=== PATIENT | female | born 1970 | race Two or more races ===

== ENCOUNTER 2024-08-11 21:31 | Emergency (ER) | payer OTHER, SELFPAY ==
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
[2024-08-11 21:34] VITALS: BP 139/86; PULSE 107; RESP 16; TEMP 36.7; O2SAT 97
--- OUTSIDE RECORDS SUMMARY | 2024-08-11 23:52 | XMS_ITS | Encounter Summary ---
Author Organization [address] [address] Care Team Providers Care Farm Operations Technical Director Name Role Phone Lee Stallings MD Primary Care Provider [phone] Pcp, No Primary Care Provider Unavailabl e Encounter Details Date Type Department Care Team (Late st Contact Info) Description 10/12/2017 Scanned Document [address] [place] [phone] Provider, Generic Social History Tobacco Use Types Packs/Day Years Used Date Smoking Tobacco: Never Assessed Sex and Gender Information Value Date Recorded Sex Assigned at Not on file Gender Identity Not on file Sexual Orientation Not on file documented as of this encounter Plan of Treatment Not on file documented as of this encounter Procedures Procedure Name Priority Date/Time Associated Diagnosis Comments LAB RESULT 10/12/2017 documented in this encounter Results * LAB RESULT (10/12/2017) Narrative 10/12/2017 Ordered by an unspecified provider. Generic Provider HX AMB PROCEDURES documented in this encounter Visit Diagnoses Not on filedocumented in this encounter Care Teams Farm Operations Technical Director Relationship Specialty Start Date End Date Lee Stallings MD PCP - General Internal Medicine 11/27/17 01/17/19 Pcp, No PCP - General General Medicine 01/18/19 documented as of this encounter
--- OUTSIDE RECORDS SUMMARY | 2024-08-11 23:52 | XMS_ITS | Clinical Summary ---
Author Organization [facility] it Address [address] [place] [address] Care Team Providers Care Gasket Winder Name Role Phone RajendraLuda MARGO Primary Care Provider [phone] Immunizations Name Administration Dates Next Due Pfizer (ages 12 & older) MAGED S-CoV-2 COVID-19, mRNA, LNP-S, say-sucrose, preservative free 11/28/2021 Pfizer SARS-CoV-2 COVID-19, mRNA, LNP-S, preservative free 06/03/2021 Surgical History Surgery Date Site/Laterality Comments CHOLECYSTECTOMY PROCEDURE:CHOLECYSTECTOMY Medical History Medical History Date Comments Hypertension DX:Hypertension Migraines DX:Migraines Environmental allergies DX:Envir onmental allergies Family History Medical History Relation Name Comments Breast cancer Neg Hx Social History Tobacco Use Types Packs/Day Years Used Date Smoking Tobacco: Every Day Cigarettes Smokeless Tobacco: Never Alcohol Use Standard Drinks/Week Comments Yes 0 (1 standard drink = 0.6 oz pur e alcohol) Comments Unknown Sex and Gender Information Value Date Recorded Sex Assigned at Not on file Legal Sex Female 2:16 PM EST Gender Identity Not on file Sexual Orientation Not on file Obstetrics History Plan of Treatment Health Maintenance Due Date Last Done Comments Hepatitis B Vaccines (1 of 3 - 19+ 3-dose series) 1987 Cervical Cancer Screening: Pap Smear 1989 Zoster Vaccines (1 of 2) 2018 Pneumococcal Vaccine: 50+ Years (2 of 2 - PCV) 12/12/2018 12/12/2017 Pneumococcal Vaccine: Pediatrics (0 to 5 Years) and At-Risk Patients (6 to 64 Years) (2 of 2 - PCV) 12/12/2018 12/12/2017 Colorectal Cancer Screening: Colonoscopy 05/18/2022 Depression Screening 05/18/2022 HIV Screening 05/18/2022 Hepatitis C Screening 05/18/2022 Social Influencers of Health Screening 05/18/2022 COVID-19 Vaccine ( season) 2024 11/28/2021, 06/03/2021, 10/15/2020, Additional history exists Influenza Vaccine (#1) 2024 Breast Cancer Screening 08/11/2024 08/11/2022 DTaP,Tdap,and Td Vaccines (2 - Td or Tdap) 12/13/2027 12/12/2017 HIB Vaccines Aged Out No longer eligi ble based on patient's age to complete this topic HPV Vaccines Aged Out No longer eligi ble based on patient's age to complete this topic Hepatitis A Vaccines Aged Out No long er eligible based on patient's age to complete this topic IPV Vaccines Aged Out No longer eligi ble based on patient's age to complete this topic MMR Vaccines Aged Out No longer eligi ble based on patient's age to complete this topic Meningococcal ACWY Vaccine Aged Out N o longer eligible based on patient's age to complete this topic Meningococcal B Vacine Aged Out No lo nger eligible based on patient's age to complete this topic RSV Immunization Patients Under 20 months Aged Out No longer eligible based on patient's age to complete this topic Varicella Vaccines Aged Out No longer eligible based on patient's age to complete this topic Procedures Procedure Name Priority Date/Time Associated Diagnosis Comments MAMMOGRAM SCREENING BILATERAL 3D PATI WITH CAD Routine 08/11/2022 3:59 PM EST Encounter for screening mammogram for malignant neoplasm of breast from Last 3 Months or Most Recently Relevant to Health Maintenance Results * MAMMOGRAM SCREENING BILATERAL 3D PATI WITH CAD (08/11/2022 3:59 PM EST) Anatomical Region Laterality Modality Mammography 08/05/2022 10:4 9 AM EST Narrative 08/16/2022 10:59 AM EST This is a summary report. The complete report is available in the patient's medical record. If you cannot access the medical record, please contact the sending organization for a detailed fax or copy. EXAM PERFORMED: ??MAMMOGRAM SCREENING BILATERAL 3D PATI WITH CAD EXAM HISTORY: Screening Exam. No palpable abnormality. COMPARISON: 2017 TECHNIQUE: Bilateral full field digital mammography with synthesized (2D) the and Tomosynthesis (3-D) was performed using standard CC and MLO projections. Mammogram was interpreted in correlation with CAD and Tomosynthesis. BREAST DENSITY: There are scattered fibroglandular densities (approximately 25- 50% glandular, B). FINDINGS: No suspicious masses, grouped microcalcifications, or architectural distortion are identified. Typically benign asymmetries. No axillary lymphadenopathy. IMPRESSION: 1. No mammographic evidence of malignancy 2. Scattered fibroglandular densities BI-RADS Category 2: Benign 3342F RECOMMENDATION: Routine mammography screening. The results of this examination have been communicated to the patient through a lay letter in accordance with the Mammography Quality Standards Act. Report reviewed and signed by : Dr. Atilio Nicole MD on 08/16/2022 10:59 AM. Workstation Name - [id number] Procedure Note Atilio Nicole MD - 07/24/2023 This is a summary report. The complete report is available in thepatient's medical record. If you cannot access the medical record, pleasecontact the sending organization for a detailed fax or copy. EXAM PERFORMED: MAMMOGRAM SCREENING BILATERAL 3D PATI WITH CAD EXAM HISTORY: Screening Exam. No palpable abnormality. COMPARISON: 2017 TECHNIQUE: Bilateral full field digital mammography with synthesized (2D)the and Tomosynthesis (3-D) was performed using standard CC and MLOprojections. Mammogram was interpreted in correlation with CAD andTomosynthesis. BREAST DENSITY: There are scattered fibroglandular densities(approximately 25- 50% glandular, B). FINDINGS: No suspicious masses, grouped microcalcifications, orarchitectural distortion are identified. Typically benign asymmetries. Noaxillary lymphadenopathy. IMPRESSION: 1. No mammographic evidence of malignancy 2. Scattered fibroglandular densities BI-RADS Category 2: Benign 3342F RECOMMENDATION: Routine mammography screening. The results of this examination have been communicated to the patientthrough a lay letter in accordance with the Mammography Quality StandardsAct. Report reviewed and signed by : Dr. Atilio Nicole MD on 08/16/2022 10:59AM. Workstation Name - [id number] us Luda Drew NP IMG BI PROCEDURES Final Result from Last 3 Months or Most Recently Relevant to Health Maintenance Care Teams Gasket Winder Relationship Specialty Start Date End Date Luda Drew NP [address] [place] [address] PCP - General Family Medicine 09/24/20
--- OUTSIDE RECORDS SUMMARY | 2024-08-11 23:52 | XMS_ITS | Clinical Summary ---
Author Organization [facility] Address [address] [place] [address] Care Team Providers Care Eddy Current Inspector Name Role Phone Viktoriya Carrasco MD Primary Care Provider [phone] Allergies Active Allergy Reactions Criticality Noted Date Comments Ibuprofen 12/22/2020 Reactions: Hives Active Problems Problem Noted Date Diagnosed Date Facial pain 12/23/2020 Vertigo 12/23/2020 Social History Tobacco Use Types Packs/Day Years Used Date Smoking Tobacco: Never Assessed Comments:Smoking Status:Form er tobacco use Comments Unknown Sex and Gender Information Value Date Recorded Sex Assigned at Not on file Legal Sex Female 12:19 PM EDT Gender Identity Not on file Sexual Orientation Not on file Last Filed Vital Signs Vital Sign Reading Time Taken Comments Blood Pressure 115/80 12/22/2020 3:30 PM EDT Sit ting Sitting Pulse 84 12/22/2020 3:30 PM EDT Temperature - - Respiratory Rate - - Oxygen Saturation - - Inhaled Oxygen Concentration - - Weight - - Height - - Body Mass Index - - Plan of Treatment Health Maintenance Due Date Last Done Comments Hepatitis C Screening 1968 Pap Smear 1984 DTaP/Tdap/Td (1 - Tdap) 1986 Hep B (1 of 3 - 19+ 3-dose series) 1987 Mammogram/Breast Imaging 2008 Colon Cancer Screening 2013 Pneumococcal 50+ years (1 of 1 - PCV) 2018 Zoster (Shingrix) (1 of 2) 2018 COVID-19 Vaccine ( - 2023-2 5 season) 2024 Influenza (#1) 2024 HPV Vaccine Aged Out No longer eligi ble based on patient's age to complete this topic Hep A Aged Out No longer eligi ble based on patient's age to complete this topic Hib Aged Out No longer eligi ble based on patient's age to complete this topic Meningococcal ACWY Aged Out No longer eligible based on patient's age to complete this topic Care Teams Eddy Current Inspector Relationship Specialty Start Date End Date Viktoriya Carrasco MD [address] [place] [address] PCP - General 01/23/23
--- OUTSIDE RECORDS SUMMARY | 2024-08-11 23:52 | XMS_ITS | Encounter Summary ---
Author Organization [address] [address] Care Team Providers Care Bottom Cager Name Role Phone Lee Stallings MD Primary Care Provider [phone] Pcp, No Primary Care Provider Unavailabl e Encounter Details Date Type Department Care Team (Late st Contact Info) Description 10/12/2017 Scanned Document [address] [place] [phone] Provider, Generic Social History Tobacco Use Types [...] on filedocumented in this encounter Care Teams Bottom Cager Relationship Specialty Start Date End Date Lee Stallings MD PCP - General Internal Medicine 11/27/17 01/17/19 Pcp, No PCP - General General Medicine 01/18/19 documented as of this encounter
--- OUTSIDE RECORDS SUMMARY | 2024-08-11 23:52 | XMS_ITS ---
Author Name [facility] Organization Unknown Results Test Name/Text Value Interpretation Date Range Source HSV2 IgG Ser IA-aCnc <0.90 Normal [id number] [facility] HSV1 IgG Ser IA-aCnc 16.4INDEX Above high normal [id number] 7 [facility] N gonorrhoea rRNA Spec Ql HOLLAND+probe NOT DETECTED Normal [id number] - [facility] COMMENT Normal [id number] [facility] C trach rRNA Spec Ql HOLLAND+probe NOT DETECTED Normal [id number] - [facility] HSV1 IgG CSF IA-aCnc TNP Normal [id number] [facility] RPR Ser Ql NON-REACTIVE Normal [id number] - [facility] HIV 1+2 Ab+HIV1 p24 Ag SerPl Ql IA NON-REACTIVE Normal [id number] - [facility] G vaginalis rRNA Genital Ql Probe DETECTED Abnormal [id number] - [facility] T vaginalis rRNA Genital Ql Probe NOT DETECTED Normal [id number] - [facility] Annia rRNA Vag Ql Probe DETECTED Abnormal [id number] - [facility] History of Medication Use Medication Directions Dispensed Refills Start Date End Date Stat Vitamin D2 1,250 mcg (50,000 unit) capsule Take 1 capsule once weekly x 8 weeks 08/08/2022 3 completed rizatriptan 10 mg tablet TAKE 1 TABLE BY ORAL ROUTE ONCE, MAY REPEAT AT 2 HOUR INTERVALS DO NOT EXCEED 30 MG IN 24 HOURS 2 completed lorazepam 0.5 mg tablet TAKE 1 TABLET (0.5 MG) BY ORAL ROUTE ONCE PER DAY NEEDED FOR ANXIETY 4 completed prednisone 10 mg tablet Take 1 tablet by oral route once daily 12/28/2023 active Nicoderm CQ 7 mg/24 hr daily transdermal patch Take APPLY Patch 24HR Transdermal once each day. 02/15/2019 1 completed Lexapro 10 mg tablet Take 1 tablet every day by oral route. 01/31/2020 2 completed doxycycline hyclate 100 mg tablet take 1 tablet (100 mg) by oral route 2 times per day 07/08/2020 1 completed mupirocin 2 % topical ointment apply a small amount to the anterior nares twice daily for 5-7 days 07/08/2020 1 completed Asmanex Twisthaler 110 mcg/actuation(30 doses) breath activated inhalr inhale 2 puffs (220 mcg) by inhalation route 2 times per day 05/10/2022 3 completed omeprazole 40 mg capsule,delayed release TAKE 1 CAPSULE BY MOUTH EVERY DAY BEFORE A MEAL 4 completed chlorhexidine gluconate 2 % topical liquid Apply as a body wash as a single application. 07/08/2020 1 completed benzonatate 100 mg capsule take 1 capsule (100 mg) by oral route 3 times per day as needed for cough 05/10/2022 3 completed meclizine 12.5 mg tablet take 1 tablets (25 mg) by oral route every 6 Hr prn dizziness 10/20/2020 2 completed omeprazole 20 mg capsule,delayed release TAKE 1 CAPSULE BY MOUTH EVERY DAY BEFORE A MEAL 4 completed doxycycline hyclate 100 mg tablet take 1 tablet (100 mg) by oral route 2 times per day 07/08/2020 1 completed Nurtec ODT [address] 1 TAB ON TOP OF TONGUE,ALLOW TO DISSOLVE THEN SWALLOW ONCE NEEDED MIGRAINE-MAX 1 DOSE/DAY 11/11/2022 3 completed calcium carbonate 600 mg-vitamin D3 20 mcg (800 unit) tablet Take 1 Tablet ORAL daily. 02/15/2019 4 completed albuterol sulfate HFA 90 mcg/actuation aerosol inhaler inhale 1 - 2 puffs (90 - 180 mcg) by inhalation route every 4 hours as needed 05/10/2022 3 completed benzonatate 100 mg capsule take 1 capsule (100 mg) by oral route 3 times per day as needed for cough 05/10/2022 3 completed amoxicillin 875 mg tablet active amoxicillin 875 mg tablet TAKE 1 TABLET BY MOUTH EVERY 12 HOURS FOR 10 DAYS 4 completed Allergies Allergen Reaction Severity Comment Documented Date Source Statu s MOTRIN IB ENS_GRANBYCT COCOA EXTRACT rash CTHLPWH MOTRIN CTHLPWH active Problems Problem Status Onset Date Problem Type Date of Resolution Source Hyperlipidemia active ProblemAct ENS_ GRANBYCT Bronchitis active ProblemAct ENS_GRAN BYCT Acute sinusitis active ProblemAct ENS _GRANBYCT Migraine with aura active ProblemAct ENS_GRANBYCT Disorder of skin appendage active ProblemAct ENS_GRANBYCT Body mass index 30+ - obesity active ProblemAct ENS_GRANBYCT Gynecologic examination active ProblemAct ENS_GRANBYCT Chronic cough active ProblemAct ENS_G RANBYCT Chest pain active ProblemAct ENS_GRAN BYCT Active immunization active ProblemAct ENS_GRANBYCT Vitamin D deficiency active ProblemAct ENS_GRANBYCT Pruritus of vagina active 2024-06-20 ProblemAct ENS_GRANBYCT Viral disease active ProblemAct ENS_G RANBYCT Maxillary sinusitis active 2023-06-28 ProblemAct ENS_GRANBYCT Constipation active ProblemAct ENS_GR ANBYCT Dizziness and giddiness active ProblemAct ENS_GRANBYCT Nicotine dependence active ProblemAct ENS_GRANBYCT Erythrocyte sedimentation rate above reference range active ProblemAct ENS_GRANBYCT Polymyalgia rheumatica active 2023-12-28 ProblemAct ENS_GRANBYCT Anxiety disorder active ProblemAct EN S_GRANBYCT Headache active ProblemAct ENS_GRANB YCT Gastroesophageal reflux disease without esophagitis active ProblemAct CTHLPWH Left lower quadrant pain active 2024-01-11 ProblemAct CTH[facility]WH Maxillary sinusitis active 2023-06-28 ProblemAct C[facility] Migraine with aura active ProblemAct C[facility] Vitamin D deficiency active ProblemAct CTH[facility] Atrophic vaginitis active 2021-08-26 ProblemAct C[facility] Polymyalgia rheumatica active 2023-12-28 ProblemAct C[facility] Palpitations active ProblemAct CTHLPW H Vaginal mass active 2024-01-11 ProblemAct CTHLP WH Allergy to food active ProblemAct CTH LPWH Acute sinusitis active ProblemAct CTH LPWH Labyrinthitis active ProblemAct ENS_G RANBYCT Left lower quadrant pain active 2024-01-11 ProblemAct ENS_GRANBYCT Gastroesophageal reflux disease without esophagitis active ProblemAct ENS_GRANBYCT Immunizations Vaccine Date Source Lot Number Status tuberculin skin test; ricki ed protein derivative solution, intradermal 01/09/2020 ENS_GRANBYCT completed zoster vaccine subunit 08/04/2022 ENS_GRANBYCT [id number] completed hepatitis B vaccine, unspeci fied formulation 02/25/2020 ENS_GRANBYCT completed Influenza, injectable, quadr ivalent, preservative free 04/27/2021 ENS_GRANBYCT [id number] completed SARS-COV-2 (COVID-19) vaccin e, mRNA, spike protein, LNP, preservative free, 30 mcg/0.3mL dose 06/03/2021 ENS_GRANBYCT [id number] completed SARS-COV-2 (COVID-19) vaccin e, mRNA, spike protein, LNP, preservative free, 30 mcg/0.3mL dose 09/24/2020 ENS_GRANBYCT [id number] completed Influenza, injectable, quadr ivalent, preservative free 05/24/2022 ENS_GRANBYCT [id number] completed hepatitis B vaccine, unspeci fied formulation 08/25/2020 ENS_GRANBYCT completed hepatitis B vaccine, unspeci fied formulation 01/23/2020 ENS_GRANBYCT completed tetanus toxoid, reduced diph theria toxoid, and acellular pertussis vaccine, adsorbed 12/12/2017 ENS_GRANBYCT completed SARS-COV-2 (COVID-19) vaccin e, mRNA, spike protein, LNP, preservative free, 30 mcg/0.3mL dose, say-sucrose formulation 11/28/2021 ENS_GRANBYCT [id number] completed SARS-COV-2 (COVID-19) vaccin e, mRNA, spike protein, LNP, preservative free, 30 mcg/0.3mL dose 10/15/2020 ENS_GRANBYCT [id number] completed zoster vaccine subunit 07/30/2021 ENS_GRANBYCT [id number] completed
--- OUTSIDE RECORDS SUMMARY | 2024-08-11 23:53 | XMS_ITS | Data Portability ---
Author Organization [place] - [facility]'s [facility], [facility] Address [address] [facility] [address] [place] [address] Care Team Providers Care Technical Sourcing Recruiter Name Role Phone STEVEN FORMAN Primary Care Provider [phone] Assessment No assessment recorded. Plan of Treatment Reminders Order Date Submit Date Provider Last Modified By Organization Details Last Modified Time Details Appointments None record ed. Lab urinal ysis, dipsti ck 2021 022 [email or web address] on In-Office Order, Internal Use Only DO Not Attach Compendium DO Not Attach Compendium, Do Not Delete/merge, [id number] 2 10:24:52 pap, IG + HPV 2021 022 [facility], [address] [place] [address], [id number] 2 06:20:46 pap, IG + reflex HPV 2019 020 [facility], [address] [place], [address] 0 11:01:31 TSH, serum or plasma 2017 018 [facility], [address] [place] [address], [id number] 8 09:45:06 urinal ysis, dipsti ck 2017 018 [email or web address] on In-Office Order, Internal Use Only DO Not Attach Compendium DO Not Attach Compendium, Do Not Delete/merge, [id number] 8 10:27:34 vitami n D, 25-hyd eliana, total, serum 2017 018 [facility], [address] [place] [address], [id number] 8 19:36:59 TSH, serum or plasma 2017 018 [facility], [address] [place] [address], [id number] 8 19:36:58 CBC w/ auto diff 2017 018 [facility], [address] [place] [address], 8 19:36:57 pap, IG + HPV 2017 018 [facility], [address] [place] [address], [id number] 8 15:04:30 HbA1c (hemog lobin A1c), blood 2017 018 [facility], [address] [place] [address], [id number] 8 19:36:58 lipid panel, serum 2017 018 [facility], [address] [place] [address], [id number] 8 19:36:57 CMP, serum or plasma 2017 018 [facility], [address] [place] [address], 8 19:36:57 Referral None record ed. Procedures None record ed. Surgeries None record ed. Imaging MAMMO, screen ing, tomosy nthesi s, bilate ral, w/ CAD 2021 022 [facility] , [address], [address], [place], [address], 3 11:16:32 MAMMO, screen ing, tomosy nthesi s, bilate ral, w/ CAD 2019 020 [facility] ([facility]) , [address], [address], [place], [address], 1 12:20:05 MAMMO, screen ing, digita l, bilate ral 2017 018 [facility], [address] [place], [address], 8 08:18:06 Medication Orders Yuvafe m 10 mcg vagina l tablet 2021 022 [email or web address] [facility], [address] [place], [address], 4 10:01:30 Yuvafe m 10 mcg vagina l tablet 2021 022 [email or web address] [facility], [address] [place], [address], 4 10:01:30 ibupro fen 800 mg tablet 2017 018 [facility], [address] [place], [address], 0 15:11:04 Patient TargetsNo targets recorded. Patient Instructions Encounter Date Encounter Id Patient Instructions Last Modified By Organization Details Last Modified Time 10/12/2017 [id number] breast self-exam: care instructions rbillstromnelson Not available 10/12/2017 10:27:34 self breast exam education rbillstromnelson Not available 10/12/2017 10:27:34 tips to help you stay healthy rbillstromnelson Not available 10/12/2017 10:27:34 04/06/2018 [id number] breast pain: care instructions rbillstromnelson Not available 04/06/2018 15:34:45 01/17/2020 [id number] breast self-exam: care instructions rbillstromnelson Not available 01/19/2020 11:23:42 learning about menopause rbillstromnelson Not available 01/19/2020 11:23:42 learning about colonoscopy rbillstromnelson Not available 01/19/2020 11:23:42 premenstrual syndrome (PMS): care instructions rbillstromnelson Not available 01/19/2020 11:23:42 Behavioral health screening completed and reviewed with patient. Negative findings. rbillstromnelson Not available 01/19/2020 11:22:23 08/26/2021 [id number] atrophic vaginitis: care instructions rbillstromnelson Not available 08/26/2021 10:24:53 breast self-exam: care instructions rbillstromnelson Not available 08/26/2021 10:24:52 learning about menopause rbillstromnelson Not available 08/26/2021 10:24:53 learning about colonoscopy rbillstromnelson Not available 08/26/2021 10:24:53 Behavioral health screening completed and reviewed with patient. Negative findings. rbillstromnelson Not available 08/26/2021 10:23:32 Reason for Referral None Reported. Results Created Date Observation Date Name Description Value Unit Range Abnormal Flag Note LastModifiedBy Organization Detail LastModifiedTime 10/13/19 18 10/13/2017 CBC w/ auto diff white blood count 5.2 thou/ uL 4.0-11 .0 Not Available [facility] [address], [place], 10/13/2017 19:36:57 10/13/19 18 10/13/2017 CBC w/ auto diff red blood count 4.83 mil/u L 4.00-5 .40 Not Available [facility] [address], [place], 10/13/2017 19:36:57 10/13/19 18 10/13/2017 CBC w/ auto diff hemoglobin 13.7 g/dL 11.7-1 5.7 Not Available [facility] [address], [place], 10/13/2017 19:36:57 10/13/19 18 10/13/2017 CBC w/ auto diff hematocrit 43.5 % 35.0-4 7.0 Not Available [facility] [address], [place], 10/13/2017 19:36:57 10/13/19 18 10/13/2017 CBC w/ auto diff MCV 90 fL 80-100 Not Available [facility] [address] [place], [address] 10/13/2017 19:36:57 10/13/19 18 10/13/2017 CBC w/ auto diff MCH 28.4 pg 27.0-3 1.0 Not Available [facility] [address], 10/13/2017 19:36:57 10/13/19 18 10/13/2017 CBC w/ auto diff MCHC 31.5 g/dL 30.0-3 6.0 Not Available [facility] [address], 10/13/2017 19:36:57 10/13/19 18 10/13/2017 CBC w/ auto diff RDW 13.7 % 11.5-1 4.5 Not Available [facility] [address], 10/13/2017 19:36:57 10/13/19 18 10/13/2017 CBC w/ auto diff platelet count 297 thou/ uL 150-45 0 Not Available [facility] [address] [place] [address], [address] 10/13/2017 19:36:57 10/13/19 18 10/13/2017 CBC w/ auto diff MPV 10.9 fL 9.4-12 .5 Not Available [facility] [address], 10/13/2017 19:36:57 10/13/19 18 10/13/2017 CBC w/ auto diff neutrophil 65.2 % Not Available [facility] [address], 10/13/2017 19:36:57 10/13/19 18 10/13/2017 CBC w/ auto diff lymphocyte 25.5 % Not Available [facility] [address], 10/13/2017 19:36:57 10/13/19 18 10/13/2017 CBC w/ auto diff monocyte 5.4 % Not Available [facility] [address], 10/13/2017 19:36:57 10/13/19 18 10/13/2017 CBC w/ auto diff eosinophil 3.5 % Not Available [facility] [address], 10/13/2017 19:36:57 10/13/19 18 10/13/2017 CBC w/ auto diff basophil 0.2 % Not Available [facility] [address] [place], [address] 10/13/2017 19:36:57 10/13/19 18 10/13/2017 CBC w/ auto diff neutrophil, absolute 3.38 thou/ uL 2.00-7 .50 Not Available [facility] [address] [place] [address], [facility] 10/13/2017 19:36:57 10/13/19 18 10/13/2017 CBC w/ auto diff lymphocyte, absolute 1.32 thou/ uL 1.50-4 .50 low Not Available [facility] [address] [place] [address], [facility] 10/13/2017 19:36:57 10/13/19 18 10/13/2017 CBC w/ auto diff monocyte, absolute 0.28 thou/ uL 0.20-1 .50 Not Available [facility] [address] [place] [address], [facility] 10/13/2017 19:36:57 10/13/19 18 10/13/2017 CBC w/ auto diff eosinophil, absolute 0.18 thou/ uL 0.00-0 .70 Not Available [facility] [address] [place] [address], [facility] 10/13/2017 19:36:57 10/13/19 18 10/13/2017 CBC w/ auto diff basophil, absolute 0.01 thou/ uL 0.00-0 .20 Not Available [facility] [address] [place] [address], [facility] 10/13/2017 19:36:57 10/13/19 18 10/13/2017 CBC w/ auto diff immature granulocyte 0.2 % Not Available [facility] [address] [place] [address], [id number] 10/13/2017 19:36:57 10/13/19 18 10/13/2017 CBC w/ auto diff immature granulocyte, absolute 0.01 thou/ uL 0.00-0 .10 Not Available [facility] [address] [place] [address], [facility] 10/13/2017 19:36:57 10/13/19 18 10/13/2017 CMP, serum or plasm a glucose 80 mg/dL 65-99 Fasti ng refer ence inter rory Not Available [facility] [address] [place] [address], [facility] 10/13/2017 19:36:57 10/13/19 18 10/13/2017 CMP, serum or plasm a blood urea nitrogen (BUN) 11 mg/dL 7-25 Not Available [facility] [address] [place] [address], 10/13/2017 19:36:57 10/13/19 18 10/13/2017 CMP, serum or plasm a creatinine 0.78 mg/dL 0.50-1 .10 Not Available [facility] [address] [place] [address], 10/13/2017 19:36:57 10/13/19 18 10/13/2017 CMP, serum or plasm a eGFR 89 mL/mi n/1.7 3m2 > or = 60 Not Available [facility] [address] [place] [address], 10/13/2017 19:36:57 10/13/19 18 10/13/2017 CMP, serum or plasm a estimated GFR 103 mL/mi n/1.7 3m2 > or = 60 Not Available [address], 10/13/2017 19:36:57 10/13/19 18 10/13/2017 CMP, serum or plasm a BUN / creatinine ratio NOT APPLIC ABLE (calc ) 6-22 Not Available [address], 10/13/2017 19:36:57 10/13/19 18 10/13/2017 CMP, serum or plasm a sodium 140 mmol/ L 135-14 6 Not Available [facility] [address] [place] [address], 10/13/2017 19:36:57 10/13/19 18 10/13/2017 CMP, serum or plasm a potassium 4.4 mmol/ L 3.5-5. 3 Not Available [facility] [address] [place] [address], 10/13/2017 19:36:57 10/13/19 18 10/13/2017 CMP, serum or plasm a chloride 110 mmol/ L 98-110 Not Available [facility] [address] [place] [address], 10/13/2017 19:36:57 10/13/19 18 10/13/2017 CMP, serum or plasm a carbon dioxide 23 mmol/ L 20-31 Not Available [facility] [address] [place] [address], [id number] 10/13/2017 19:36:57 10/13/19 18 10/13/2017 CMP, serum or plasm a calcium 9.1 mg/dL 8.6-10 .2 Not Available [facility] [address] [place] [address], [address] 10/13/2017 19:36:57 10/13/19 18 10/13/2017 CMP, serum or plasm a alkaline phosphatase 55 U/L 33-115 Not Available [facility] [address] [place] [address], [facility] 10/13/2017 19:36:57 10/13/19 18 10/13/2017 CMP, serum or plasm a aspartate aminotrans (AST) 12 U/L 10-35 Not Available [address], [facility] 10/13/2017 19:36:57 10/13/19 18 10/13/2017 CMP, serum or plasm a alanine aminotrans (ALT) 12 U/L 6-29 Not Available [address], [facility] 10/13/2017 19:36:57 10/13/19 18 10/13/2017 CMP, serum or plasm a bilirubin, total 0.3 mg/dL 0.2-1. 2 Not Available [address], [facility] 10/13/2017 19:36:57 10/13/19 18 10/13/2017 CMP, serum or plasm a protein, total 6.4 g/dL 6.1-8. 1 Not Available [facility] [address] [place] [address], [address] 10/13/2017 19:36:57 10/13/19 18 10/13/2017 CMP, serum or plasm a albumin 3.8 g/dL 3.6-5. 1 Not Available [facility] [address] [place] [address], [address] 10/13/2017 19:36:57 10/13/19 18 10/13/2017 CMP, serum or plasm a globulin 2.6 g/dL_ (calc ) 1.9-3. 7 Not Available [facility] [address] [place] [address], 10/13/2017 19:36:57 10/13/19 18 10/13/2017 CMP, serum or plasm a albumin/glob ulin ratio 1.5 (calc ) 1.0-2. 5 Not Available [facility] [address] [place] [address], [address] 10/13/2017 19:36:57 10/13/19 18 10/13/2017 lipid panel , serum cholesterol, total 128 mg/dL <200 Not Available [address], 10/13/2017 19:36:57 10/13/19 18 10/13/2017 lipid panel , serum triglyceride s 89 mg/dL <150 Not Available [address], 10/13/2017 19:36:57 10/13/19 18 10/13/2017 lipid panel , serum cholesterol, HDL 34 mg/dL >50 low Not Available [address], 10/13/2017 19:36:57 10/13/1910/13/2017 lipid panel , serum estimated LDL 77 mg/dL _(negrita c) Refer ence range : <100 Manuel able range <100 mg/dL for prima ry preve ntion ; <70 mg/dL for patie nts with CHD or diabe tic patie nts with > or = 2 CHD risk facto rs. LDL-C is now calcu lated using the Monserrat n-Hop kins ronnieu fabricio n, which is a valid ated novel carin avila accur acy than the Fried shaylee equat ion in the estim ation of LDL-C . Monserrat tapia SS et al. LEEANNE. 2013; 310(1 9): 2061- 2068 (http ://ed kathrynati on.Qu Americo szyamnskiWebcentrixs. com/f aq/FA Q164) Not Available [facility] [address] [place] [address], 10/13/2017 19:36:57 10/13/19 18 10/13/2017 lipid panel , serum cholesterol/ HDL ratio 3.8 (calc ) <5.0 Not Available [facility] [address] [place], [address] 10/13/2017 19:36:57 10/13/19 18 10/13/2017 lipid panel , serum non HDL cholesterol 94 mg/dL _(negrita c) <130 For patie nts with diabe ailin plus 1 major ASCVD risk facto r, treat ing to a non-H DL-C goal of <100 mg/dL (LDL- C of <70 mg/dL ) is consi dered a thera peuti c optio n. Not Available [facility] [address] [place] [address], [address] 10/13/2017 19:36:57 10/13/19 18 10/13/2017 TSH, serum or plasm a TSH, highly sensitive 1.02 mIU/L 0.35-4 .94 Not Available [address], [address] 10/13/2017 19:36:58 10/13/19 18 10/13/2017 HbA1c (hemo globi n A1c), blood hemoglobin A1C 4.9 % <5.7 A1c% Inter preta tion 5.7 - 6.0 Incre ase risk of diabe ailin 6.1 - 6.4 Highe r risk of diabe ailin > or = 6.5 Consi stent with diabe ailin Diabe ailin Care, 33(Adamson pp 1):S1 -S61, 2009 Not Available [facility] [address] [place] [address], [address] 10/13/2017 19:36:58 10/13/19 18 10/13/2017 vitam in D, 25-hy droxy , total , serum vitamin D, 25-hydroxy 6 NG/mL 8-66 low Not e new refer ence range effec tive 2016* * Not Available [facility] [address] [place] [address], [address] 10/13/2017 19:36:58 10/13/19 18 10/13/2017 pap, IG + HPV HPV result Negati ve negati ve APTIM A HPV assay detec ts 14 high risk HPV types (HPV 16,18 ,31,3 3,35, 39,45 , 51,52 ,56,5 8,59, 66,68 ). The assay is FDA appro bonita for testi ng ThinP rep liqui d Pap vials but not FDA appro bonita for detec ting HPV in SureP ath liqui d Pap speci mens. In-ho use valid ation has shown the assay can detec t all HPV types from this sourc e. Not Available [facility] [address] [place], [address] 10/17/2017 15:04:30 10/13/19 18 10/17/2017 pap, IG + HPV report abnormal GYNEC OLOGI NEGRITA CYTOL OGY REPOR T A. THINP REP PAP (IMAG ER) WITH HPV SCREE N AND REFLE X TO HPV 16,18 /45: SPECI MEN ADEQU ACY: SATIS FACTO RY FOR EVALU ATION ; ENDOC ERVIC AL/TR ANSFO RMATI ON ZONE COMPO NENT PRESE NT. INTER PRETA TION: ENDOM ETRIA L CELLS PRESE NT. NEGAT RADHAMES FOR SQUAM [place] [address] . ENDOM ETRIA L CELLS CORRE LATE WITH THE MENST RUAL HISTO RY PROVI DED. THE SAMPL E CONTA INED EXCES SIVE BLOOD , RENDE RING THE ORIGI NAL SLIDE UNSAT ISFAC TORY FOR INTER PRETA TION. THE SAMPL E WAS TREAT ED WITH ACETI C ACID TO ENABL E PREPA RATIO N OF A SECON D SLIDE WHICH CONTA INED ENOUG H SQUAM OUS CELLS TO ALLOW FOR CYTOL OGIC INTER PRETA TION. Elect reny titus [place] d Out: JOVI REED MD [facility] [place]( [place]) CLINI NEGRITA INFOR MATIO N: LMP: Z01.4 19 Numbe r of vials /slid es submi tted: 1 Speci men sourc e: CERVI X/END OCERV IX Abnor mal Pap Date: NI Autom ated presc reeni ng of all liqui d based speci mens is perfo rmed by the ThinP rep Imagi ng beth Rodríguez other [place]. The Pap test is a scree vini test with an inher ent false negat radhames rate. [facility] , [address] [place] [address] CLIA [id number] CL-[id number]. Not Available [facility] [address] [place], [address] 10/17/2017 15:04:30 10/13/19 18 10/12/2017 urina lysis , dipst ick Leukocytes Negati ve Not Available In-Office Order Internal Use Only DO Not Attach Compendium DO Not Attach Compendium, Do Not Delete/merge, [id number] 10/12/2017 10:18:35 10/13/19 18 10/12/2017 urina lysis , dipst ick Nitrite negati ve Not Available In-Office Order Internal Use Only DO Not Attach Compendium DO Not Attach Compendium, Do Not Delete/merge, 10/12/2017 10:18:35 10/13/19 18 10/12/2017 urina lysis , dipst ick Protein Negati ve Not Available In-Office Order Internal Use Only DO Not Attach Compendium DO Not Attach Compendium, Do Not Delete/merge, [id number] 10/12/2017 10:18:35 10/13/19 18 10/12/2017 urina lysis , dipst ick Glucose Negati ve Not Available In-Office Order Internal Use Only DO Not Attach Compendium DO Not Attach Compendium, Do Not Delete/merge, 10/12/2017 10:18:35 04/06/20 18 04/07/2018 TSH, serum or plasm a TSH, highly sensitive 0.66 mIU/L 0.35-4 .94 Not Available [facility] [address] [place], [address] 04/07/2018 09:45:06 01/17/20 20 01/17/2020 pap, IG + refle x HPV report Report Final Gynec ologi negrita Cytol ogy Repor t ----- ----- ----- ----- ----- ----- ----- ----- ----- ----- ----- ----- ThinP rep Pap Test with HPV Refle x SPECI MEN ADEQU ACY: SATIS FACTO RY FOR EVALU ATION ; ENDOC ERVIC AL/TR ANSFO RMATI ON ZONE COMPO NENT PRESE NT. INTER PRETA TION: NEGAT RADHAMES FOR INTRA EPITH CHLOE Tapia OR JOSHUA ACUNA . Elect reny Galvin d: Ana Maria Steven, [place] (ASCP ) ----- ----- ----- ----- ----- ----- ----- ----- ----- ----- ----- ----- CLINI NEGRITA INFOR ITALO N: LMP: NG Speci men Sourc e: Cervi x, Endoc ervix CPT Codes : 94732 ICD Codes : Z12.4 Not Available [facility] [address] [place], [address] 01/21/2020 11:01:31 08/27/19 22 08/26/2021 HPV MRNA E6/E7 HPV MRNA E6/E7 Negati ve negati ve APTIM A HPV assay detec ts 14 high risk HPV types (HPV 16,18 ,31,3 3,35, 39,45 ,51,5 2,56, 58,59 ,66,6 8). The assay is FDA appro bonita for testi ng ThinP rep liqui d Pap vials but not FDA appro bonita for detec ting HPV in SureP ath liqui d Pap speci mens. In-ho use valid ation has shown the assay can detec t all HPV types from this sourc e Not Available [facility] [address] [place], [address] 08/31/2021 06:20:44 08/27/1908/26/2021 THINP REP PAP TEST (IMAG ER), HPV SCREE N, REFLE X HPV 16,18 /45 report Report Final Gynec ologi negrita Cytol ogy Repor t ----- ----- ----- ----- ----- ----- ----- ----- ----- ----- ----- ----- ThinP rep Pap Test, HPV Scree n, Refle x HPV Genot ype SPECI MEN ADEQU ACY: SATIS FACTO RY FOR EVALU ATION ; ENDOC ERVIC AL/TR ANSFO RMATI ON ZONE COMPO NENT PRESE NT. INTER PRETA TION: NEGAT RADHAMES FOR INTRA EPITH CHLOE MONTIELMANA Tapia OR JOSHUA ACUNA . Elect reny Glavin d: Malik Qu[place], [place] ([facility] ) ----- ----- ----- ----- ----- ----- ----- ----- ----- ----- ----- ----- CLINI NEGRITA INFOR MATIO N: LMP: NG Clini negrita Histo ry: RTN Speci men Sourc e: Cervi x, Endoc ervix HPV RESUL TS: HPV mRNA E6/E7 [id number] Appro bonita: 08/27 Negat radhames REF RANGE : Negat radhames CPT Codes : 03258 ICD Codes : Z12.4 Not Available [facility] [address] [place], [address] 08/31/2021 06:20:46 08/27/19 22 08/26/2021 urina lysis , dipst ick Interpretati on negati ve Not Available In-Office Order Internal Use Only DO Not Attach Compendium DO Not Attach Compendium, Do Not Delete/merge, [id number] 08/24/2021 09:39:31 08/27/19 22 08/26/2021 urina lysis , dipst ick Leukocytes Negati ve Not Available In-Office Order Internal Use Only DO Not Attach Compendium DO Not Attach Compendium, Do Not Delete/merge, [id number] 08/24/2021 09:39:31 08/27/19 22 08/26/2021 urina lysis , dipst ick Nitrite negati ve Not Available In-Office Order Internal Use Only DO Not Attach Compendium DO Not Attach Compendium, Do Not Delete/merge, [id number] 08/24/2021 09:39:31 08/27/19 22 08/26/2021 urina lysis , dipst ick Protein Negati ve Not Available In-Office Order Internal Use Only DO Not Attach Compendium DO Not Attach Compendium, Do Not Delete/merge, [id number] 08/24/2021 09:39:31 08/27/19 22 08/26/2021 urina lysis , dipst ick Glucose Negati ve Not Available In-Office Order Internal Use Only DO Not Attach Compendium DO Not Attach Compendium, Do Not Delete/merge, [id number] 08/24/2021 09:39:31 10/20/19 18 10/17/2017 MAMMO , scree vini, digit al, bilat eral, w/ CAD HISTOR Y: Nanci akins is 47 years old and is seen for screen ing. The patien t has no person al histor y of breast or ovaria n cancer . The patien t has no family histor y of breast cancer . FILMS COMPAR ED: This is the patien ts baseli ne mammog juli. MAMMOG JULI FINDIN GS: The follow ing digita l mammog raphic views were obtain ed: bilate ral cranio caudal , bilate ral mediol ateral obliqu e. There are scatte red fibrog landul ar densit ies. (ACR BIRADS densit y Catego ry b) * There is an oval mass measur ing 7 millim eters seen in the lower inner quadra nt of the left breast locate d 7 centim eters from the nipple . In the right breast , no suspic ious masses , calcif icatio ns or other abnorm alitie s are seen. Comput er-aid ed detect ion was utiliz ed by the radiol ogist in the interp retati on of this examin ation. IMPRES ANTONELLA: Mass in the left breast requir es additi onal evalua tion. Additi onal imagin g (left cranio caudal spot compre ssion, left mediol ateral obliqu e spot compre ssion, and left ultras ound if warran manasa) is recomm ended. The patien t will receiv e a lay summar y of the result s of this breast imagin g exam. Lay summar ies for mammog val examin ations will also identi fy the patien ts person al breast tissue compos ition as requir ed by state law. BIRADS Catego ry 0: Incomp lete: Need Additi onal Imagin g Evalua tion Thank you for referr ing your patien t to us, Emanuel Louie MD [id number] (Elect yoan easley Signed - 2017 08:14) [facility] [place] [address], [place], [address], 10/31/2017 12:50:04 11/03/19 18 11/02/2017 MAMMO , diagn ostic , digit al, unila teral HISTOR Y: Nanci akins is 47 years old and is seen for additi onal evalua tion reques manasa at [facility] screen [facility]. The patien t has no person al histor y of breast or ovaria n cancer . The patien t has no family histor y of breast cancer . FILMS COMPAR ED: The presen t examin ation has been compar ed to a prior imagin g study dated 2017. MAMMOG JULI FINDIN GS: The follow ing digita l mammog raphic views were obtain ed: left cranio caudal spot compre ssion, left mediol ateral obliqu e spot compre ssion, left cranio caudal top rolled medial , left cranio caudal top rolled latera l. There are scatte red fibrog landul ar densit ies. (ACR BIRADS densit y Catego ry b) * Findin g 1: Additi onal evalua tion was perfor med for the oval mass in the left breast , lower inner quadra nt seen on 2017. On the pres t examin ation, there is a low densit y, oval mass measur ing 7 millim eters with obscur ed margin s in the left breast lower inner quadra nt at 7 oclock locate d 6 centim eters from the nipple . Findin g 2: The findin g in questi on is not seen on mammog juli. ULTRAS OUND FINDIN GS: Target ed high resolu tion graysc kain sonogr aphy was perfor med of the area of concer n. Findin g 1: Ultras ound demons trates an oval cyst measur ing 6 millim eters, with long axis parall el to the chest wall in the left breast lower inner quadra nt at 7 oclock locate d 6 centim eters from the nipple . Findin g 2: There is a compli cated cyst measur ing 3 millim eters seen in the middle third of the left breast lower outer quadra nt at 5 oclock locate d 3 centim eters from the nipple . IMPRES ANTONELLA: Findin g 1: Cyst in the left breast is probab ly benign . Short interv al follow -up mammog juli and ultras ound of the left breast in 6 months is recomm ended. Findin g 2: Compli cated cyst in the middle third of the left breast lower outer quadra nt at 5 oclock locate d 3 centim eters from the nipple is probab ly benign . A short interv al diagno stic ultras ound follow up in 6 months is recomm ended. The nanci akins was inform ed of these findin gs at the time of the exam. The patifabián akins will receiv e a lay summar y of the result s of this breast imagin g exam. Lay summar ies for mammog val examin ations will also identi fy the nanci hinds person al breast tissue compos ition as requir ed by state law. BIRADS Catego ry 3: Probab ly Benign Thank you for referr ing your nanci akins to us, Ashley Durbin MD [phone] (Elect yoan easley Signed - 2017 16:46) [facility] - [place] [address] [facility], [place], [address], 11/06/2017 16:50:39 11/03/19 18 11/02/2017 [place], paris long tergonzalo HISTOR Y: Nanci akins is 47 years old and is seen for additi onal evalua tion reques manasa at [facility] screen ing. The nanci akins has no person al histor y of breast or ovaria n cancer . The patien mable has no family histor y of breast cancer . FILMS COMPAR ED: The presen mable examin ation has been compar ed to a prior imagin g study dated 2017. MAMMOG JULI FINDIN GS: The follow ing digita l mammog raphic views were obtain ed: left cranio caudal spot compre ssion, left mediol ateral obliqu e spot compre ssion, left cranio caudal top rolled medial , left cranio caudal top rolled latera l. There are scatte red fibrog landul ar densit ies. (ACR BIRADS densit y Catego ry b) * Findin g 1: Additi onal evalua tion was perfor med for the oval mass in the left breast , lower inner quadra nt seen on 2017. On the presen t examin ation, there is a low densit y, oval mass measur ing 7 millim eters with obscur ed margin s in the left breast lower inner quadra nt at 7 oclock locate d 6 centim eters from the nipple . Findin g 2: The findin g in questi on is not seen on mammog juli. ULTRAS OUND FINDIN GS: Target ed high resolu tion graysc kain sonogr aphy was perfor med of the area of concer n. Findin g 1: Ultras ound demons trates an oval cyst measur ing 6 millim eters, with long axis parall el to the chest wall in the left breast lower inner quadra nt at 7 oclock locate d 6 centim eters from the nipple . Findin g 2: There is a compli cated cyst measur ing 3 millim eters seen in the middle third of the left breast lower outer quadra nt at 5 oclock locate d 3 centim eters from the nipple . IMPRES ANTONELLA: Findin g 1: Cyst in the left breast is probab ly benign . Short interv al follow -up mammog juli and ultras ound of the left breast in 6 months is recomm ended. Findin g 2: Compli cated cyst in the middle third of the left breast lower outer quadra nt at 5 oclock locate d 3 centim eters from the nipple is probab ly benign . A short interv al diagno stic ultras ound follow up in 6 months is recomm ended. The patien t was inform ed of these findin gs at the time of the exam. The patien t will receiv e a lay summar y of the result s of this breast imagin g exam. Lay summar ies for mammog val examin ations will also identi fy the patien ts person al breast tissue compos ition as requir ed by state law. BIRADS Catego ry 3: Probab ly Benign Thank you for referr ing your patien t to us, Ashley Durbin MD [phone] (Elect yoan easley Signed - 2017 16:46) [facility] [address], [place], [address], 11/06/2017 16:50:39 01/29/20 24 01/29/2024 US, trans vagin al RAD rbillstrom bud n [facility] [address], [place], [address], 01/30/2024 08:45:21 01/29/20 24 01/29/2024 US, trans vagin al RAD rbillstrom bud n [facility] [address], [place], [address], 01/30/2024 08:45:27 Result Notes None recorded. Problems Name Problem SNOMED Code Status Onset Date Resolution Date Notes Provider Name and Address Organization Details Recorded Time Allergy to food 271387763 Active Sabina Maya null, [facility] 8 10:12:49 Palpitations 47169987 Active Sabina Maya null, [facility] 8 10:13:17 Atrophic vaginitis 43378297 Active 2021 GYPSY MEZA MD [address] [place] [address], [address] Floor, [place], [address] , [facility] 2 10:27:32 Constipation 50288828 Active Joan Linares null, [facility] 4 08:29:09 Acute sinusitis 46229466 Active Joan Linares null, [facility] 4 08:29:09 Body mass index 30+ - obesity 995791388 Active Joan Linares null, [facility] 4 08:29:09 Erythrocyte sedimentation rate above reference range 276019148 Active Joan Linares null, [facility] 4 08:29:09 Anxiety disorder 752575662 Active Joan Linares null, [facility] 4 08:29:09 Disorder of skin appendage 239410267 Active Joan Linares null, [facility] 4 08:29:09 Labyrinthitis 05258778 Active Joan Friedmanvo null, [facility] 4 08:29:09 Headache 31757778 Active Joan Friedmanvo null, [facility] 4 08:29:09 Gastroesophag eal reflux disease without esophagitis 603492572 Active Joan Farralvo null, [facility] 4 08:29:09 Dizziness and giddiness 622159227 Active Joan Linares null, [facility] 4 08:29:09 Vaginal mass 388054245 Active 2023 Joan Linares null, [facility] 4 08:29:09 Chest pain 75192187 Active Joan Friedmanvo null, [facility] 4 08:29:09 Left lower quadrant pain 827779187 Active 2023 Joan Linares null, [facility] 4 08:29:09 Bronchitis 11431666 Active Joan Linares null, [facility] 4 08:29:09 Viral disease 55448647 Active Joan Linares null, [facility] 4 08:29:09 Vitamin D deficiency 48176551 Active Joan Farralvo null, [facility] 4 08:29:09 Migraine with aura 4714073 Active Joan Farralvo null, [facility] 4 08:29:09 Hyperlipidemi a 82177257 Active Joan Linares null, [facility] 4 08:29:09 Nicotine dependence 17435395 Active Joan Linares null, [facility] 4 08:29:09 Polymyalgia rheumatica 91824069 Active 2023 Joan Linares null, [place] - [facility] 4 08:29:09 Chronic cough 25846415 Active Joan Linares null, [facility] 4 08:29:09 Maxillary sinusitis 91919642 Active 2023 Joan Linares null, [place] - [facility] 4 08:29:09 Notes:Some problems listed i n Document: #[id number] could not be added to this patient's chart. Please review this document and add these problems to the patient's chart manually as needed. Problem Notes None recorded. Procedures Surgical History Date Name Laterality Status Provider Name and Address Organization Details Recorded Time 08/11/19 23 Date of Last Mammogram completed Amy Borges [facility] 10/24/2023 10:15:44 08/27/19 22 Date of Last Pap Smear completed Amy Borges [facility] 10/24/2023 10:14:29 01/17/20 20 [id number] completed GYPSY MEZA MD [address] [facility], [address] [place] [address], [id number], [facility] 01/19/2020 11:20:03 01/17/20 20 [id number] completed GYPSY MEZA MD [address] [facility], [address] [place], [address], [facility] 01/19/2020 11:20:06 06/19/19 19 Date of Last Colonoscopy completed Rachael Davis [facility] 08/26/2021 09:10:59 10/13/19 18 [id number] completed GYPSY MEZA MD [address] [facility], [address] [place] [address], [phone], [facility] 10/12/2017 11:11:04 10/13/19 18 [id number] completed GYPSY MEZA MD [address], [address] Floor, [place], [address], [place] - [facility] 10/12/2017 11:11:00 06/19/18 98 Cholecystectomy completed GYPSY MEZA MD [address], [address] Floor, [place], [address], [place] - [facility] 10/12/2017 11:17:02 06/19/18 98 Tubal Ligation completed GYPSY MEZA MD [address], [address] Floor, [place], [address], [place] - [facility] 10/12/2017 11:17:22 06/19/18 90 Dilation & suction completed GYPSY MEZA MD [address], [address] Floor, [place], [address], [place] - [facility] 10/12/2017 11:17:11 Imaging Results Imaging Date Name Status LastModified by Organization Details LastModified Time 10/17/2017 MAMMO, screening, digital, bilateral, w/ CAD completed [facility] [address], [place], [address], 10/31/2017 12:50:04 11/02/2017 MAMMO, diagnostic, digital, unilateral completed [facility] [address], [place], [address], 11/06/2017 16:50:39 11/02/2017 US, breast, unilateral completed [facility] [address], [place], [address], 11/06/2017 16:50:39 01/29/2024 US, transvaginal completed rbillstromnelson [facility] [address], [place], [address], 01/30/2024 08:45:21 01/29/2024 US, transvaginal completed rbillstromnelson [facility] [address], [place], [address], 01/30/2024 08:45:27 Procedure Notes None recorded. Medical Equipment None Reported. Allergies Allergen ID Allergen Name Allergen Category Reaction Reaction Severity Criticality Documentation Date Start Date Code Code System Note Provider Name and Address Organization Details Recorded Time 0900865 cocoa extract food,medi cation fever rash moderate Not available Not available 10/12/2017 41995 95 RxNorm Sabina Maya [facility], [facility] 8 09:50:49 6145037 Motrin medicatio n Not available Not available Not available 01/29/202482715 8 RxNorm Joan Linares [facility], [facility] 4 08:28:59 Medications Name Sig Start Date Stop Date Status Note LastModified by Organization Details LastModified Time prednisone 10 mg tablet Take 1 tablet by oral route once daily 01/28 completed Not Available Not Available Not Available azithromyci n 250 mg tablet TAKE 2 TABLETS BY MOUTH TODAY, THEN TAKE 1 TABLET DAILY FOR 4 DAYS DIRECTED 08/29 completed Not Available Not Available Not Available ibuprofen 800 mg tablet Take 1 tablet 3 times a day by oral route for 7 days. 01/16 completed Not Available Not Available Not Available rizatriptan 10 mg tablet TAKE 1 TABLE BY ORAL ROUTE ONCE, MAY REPEAT AT 2 HOUR INTERVALS DO NOT EXCEED 30 MG IN 24 HOURS 08/20 completed Not Available Not Available Not Available Excedrin Migraine 250 mg-250 mg-65 mg tablet Take 1-2 Tablet ORAL 4 times a day for 10 days. 02/25 completed Not Available Not Available Not Available penicillin V potassium 500 mg tablet 01/16 completed Not Available Not Available Not Available meclizine 12.5 mg tablet TAKE 1 TABLETS (25 MG) BY ORAL ROUTE EVERY 6 HR NEEDED FOR DIZZINESS 08/20 completed Not Available Not Available Not Available omeprazole 40 mg capsule,del ayed release TAKE 1 CAPSULE BY MOUTH EVERY DAY BEFORE A MEAL 06/28 completed Not Available Not Available Not Available Nicoderm CQ 7 mg/24 hr daily transdermal patch Take APPLY Patch 24HR Transderm al once each day. 07/08 completed Not Available Not Available Not Available oxycodone-a cetaminophe n 5 mg-325 mg tablet 04/04 completed Not Available Not Available Not Available amoxicillin 875 mg tablet TAKE 1 TABLET BY MOUTH EVERY 12 HOURS FOR 10 DAYS 06/28 completed Not Available Not Available Not Available lorazepam 0.5 mg tablet TAKE 1 TABLET (0.5 MG) BY ORAL ROUTE ONCE PER DAY NEEDED FOR ANXIETY 06/28 completed Not Available Not Available Not Available Nicoderm CQ 14 mg/24 hr daily transdermal patch Take APPLY Patch 24HR Transderm al once each day. 06/28 completed Not Available Not Available Not Available benzonatate 100 mg capsule take 1 capsule (100 mg) by oral route 3 times per day as needed for cough 08/04 completed Not Available Not Available Not Available chlorhexidi ne gluconate 2 % topical liquid Apply as a body wash as a single applicati on. 07/15 completed Not Available Not Available Not Available omeprazole 20 mg capsule,del ayed release TAKE 1 CAPSULE BY MOUTH EVERY DAY BEFORE A MEAL 06/28 completed Not Available Not Available Not Available mupirocin 2 % topical ointment apply a small amount to the anterior nares twice daily for 5-7 days 07/15 completed Not Available Not Available Not Available albuterol sulfate HFA 90 mcg/actuati on aerosol inhaler inhale 1 - 2 puffs (90 - 180 mcg) by inhalatio n route every 4 hours as needed 08/04 completed Not Available Not Available Not Available Vitamin D2 1,250 mcg (50,000 unit) capsule Take 1 capsule once weekly x 8 weeks 03/31 completed Not Available Not Available Not Available fluticasone propionate 50 mcg/actuati on nasal spray,suspe nsion SPRAY 2 SPRAYS INTO EACH NOSTRIL ONCE A DAY active Not Available Not Available No t Available doxycycline hyclate 100 mg tablet take 1 tablet (100 mg) by oral route 2 times per day 07/15 completed Not Available Not Available Not Available amoxicillin 875 mg-potassiu m clavulanate 125 mg tablet TAKE 1 TABLET BY MOUTH EVERY 12 HOURS 08/20 completed Not Available Not Available Not Available Lexapro 10 mg tablet Take 1 tablet every day by oral route. 08/20 completed Not Available Not Available Not Available Asmanex Twisthaler 110 mcg/actuati on(30 doses) breath activated inhalr inhale 2 puffs (220 mcg) by inhalatio n route 2 times per day 08/04 completed Not Available Not Available Not Available Vitamin D3 125 mcg (5,000 unit) tablet 125 mcg 03/31 completed Not Available Not Available Not Available calcium 600 mg (as carbonate)- vitamin D3 20 mcg (800 unit) tablet Take 1 Tablet ORAL daily. 06/28 completed Not Available Not Available Not Available Yuvafem 10 mcg vaginal tablet INSERT 1 TABLET EVERY DAY BY VAGINAL ROUTE AT BEDTIME TWICE WEEKLY 01/28 completed Not Available Not Available Not Available [facility] ODT 75 mg disintegrat ing tablet PLACE 1 TAB ON TOP OF TONGUE,AL LOW TO DISSOLVE THEN SWALLOW ONCE NEEDED MIGRAINE- MAX 1 DOSE/DAY 11/11 completed Not Available Not Available Not Available [facility] COVID-19 Antigen Home Test kit 06/28 completed Not Available Not Available Not Available Vitals Date Recorded Body height Body mass index (BMI) Body weight Systolic blood pressure Diastolic blood pressure Provider Name and Address Organization Details Last Updated DateTime 10/12/2017 154.94 cm 27.2 kg/m2 41366.3 g 112 mm[Hg] 72 mm[Hg] Sabina Maya [facility] 8 10:08:33 Date Recorded Body height Body mass index (BMI) Body weight Systolic blood pressure Diastolic blood pressure Provider Name and Address Organization Details Last Updated DateTime 04/06/2018 154.94 cm 26.3 kg/m2 33026.34 g 120 mm[Hg] 80 mm[Hg] Danica Winn [facility] 8 14:32:16 Date Recorded Body height Body mass index (BMI) Body weight Systolic blood pressure Diastolic blood pressure Provider Name and Address Organization Details Last Updated DateTime 01/17/2020 154.94 cm 28.3 kg/m2 50558.86 g 120 mm[Hg] 78 mm[Hg] Amy Jony [facility] 0 15:10:46 Date Recorded Body height Body mass index (BMI) Body weight Systolic blood pressure Diastolic blood pressure Provider Name and Address Organization Details Last Updated DateTime 08/26/2021 154.94 cm 30.4 kg/m2 55186.37 g 114 mm[Hg] 78 mm[Hg] Rachael Davis [facility] 2 09:09:48 Date Recorded Body height Body mass index (BMI) Body weight Systolic blood pressure Diastolic blood pressure Provider Name and Address Organization Details Last Updated DateTime 01/29/2024 154.94 cm 32.3 kg/m2 89756.3 g 110 mm[Hg] 70 mm[Hg] Joan Linares [facility] 4 10:02:28 Social History Question Answer Notes LastModified by Organizat ion Details LastModified Time Tobacco Smoking Status Former Smoker Rachael Davis [facility] 08/26/2021 09:06:32 What Is Your Level Of Alcohol Consumption? Occasional Information not available 10/12/2017 Are You Currently Employed? Yes Information not available 08/26/2021 What Is The Highest Grade Or Level Of School You Have Completed Or The Highest Degree You Have Received? [id number] Information not available 08/26/2021 What Is Your Occupation? [employer] Information not available 08/26/2021 Do You Have Any Children? Yes Information not available 10/12/2017 Does Your Partner Physically Hurt You Or Threaten To Hurt You? No Information not available 10/12/2017 Has Your Partner Forced You To Have Sex Or Perform Sex Acts When You Did Not Want To? No Information not available 10/12/2017 Does Your Partner Insult, Scream At Or Talk Down To You? No Information not available 10/12/2017 Does Your Partner Control You Or Any Part Of Your Life? No Information not available 10/12/2017 Are You Afraid Of Your Partner? No Information not available 10/12/2017 Drug Use? No Informat ion not available 10/12/2017 Do You Feel Safe At Home? Yes Information not available 10/12/2017 What Was The Date Of Your Most Recent Tobacco Screening? 08/26/2021 Information not available 08/26/2021 How Many Children Do You Have? 4 Information not available 08/26/2021 Are You Sexually Active? Yes Information not available 08/26/2021 How Much Tobacco Do You Smoke? 0.5 PPD Previouslys Moked 1.5 PPD, Last 15 Years 1/2 Ppd Information not available 08/26/2021 Do You Feel Stressed (tense, Restless, Nervous, Or Anxious, Or Unable To Sleep At Night)? [id number] Information not available 08/26/2021 Have You Recently Traveled Abroad? No Information not available 08/26/2021 Sex: Female Functional Status Question Answer Note LastModified by Organization D etails LastModified Time What is your exercise level? Moderate Information not available 08/26/2021 Mental Status None recorded. Family History Relationship Description Onset Age of this Age Resolved Age Notes LastModified by Organization Details LastModified Time Father Family history of Father alive and well [email or web address] Not available 2017 10:13:37 Mother Family history of Mother alive and well [email or web address] Not available 2017 10:13:44 Paternal Grandmother Malignant tumor of colon 72 [email or web address] son Not available 10/12/2017 11:15:56 Paternal Grandmother Malignant tumor of cervix pt. added direct ly (08/20) [email or web address] Not available 08/20/2021 15:39:52 Unspecified Relation Malignant tumor of cervix Patern al Great Grandm other Not available 10/12/2017 10:15:23 Notes:no h/o breast, uterine or ovarian CA Medical History Condition Response Other N *No Diseases or Conditions N Breast Cancer N Blood clots N Benign breast disease N Colon cancer N Depression N Lung Disease N Defects or Inherited Disease N Anesthesia Complications N Neurological Disorder N Headaches/Migraines Y Have you ever been on isolation N Anxiety Disorder N Arthritis N HSV N Infertility N Abnormal pap Y Interstitial Cystitis N Acid Reflux (GERD) N Cancer N Stroke N Endometriosis N Fibromyalgia N HIV N Heart Problems N Sexual Dysfunction N Autoimmune disorder N Thyroid Problems N Kidney or Bladder Problems N GI Problems N Eating Disorder N Anemia N Multiple Sclerosis N Psychiatric Illness N Ovarian Cancer N Diabetes N Blood Transfusions N Bladder disease N History of MRSA N Abnormal Uterine Bleeding N Hyperlipidemia N BrCa positive N Diverticulitis N Abuse/Domestic Violence N Asthma N Hepatitis N Hypertension N Osteoporosis N Thrombophilias N Gynecological History Statement/Question Response Date of Last Mammogram 08/11/2022 Flow Moderate Date of LMP 06/19/2023 Breast Biopsy N IPV Screen Done 08/26/2021 STIs/STDs Y Cervical Cancer N BrCa gene tested? N Ovarian Cancer N Date of Last Colonoscopy 06/19/2018 Breast Cancer N Date of last DEXA Abnormal Uterine Bleeding N Last HPV Result Negative Abnormal Pap Y BrCa Positive N Infertility N Breast Ultrasound Y Sexual Orientation heterosexual HPV Vaccine N Duration of Flow (days) 3 Endometriosis N Age at Menarche 11 Current Control Method None Age at First Child 16 Fibroids N Uterine Cancer N Current Control Method Tubal Ligat ion Frequency of Cycle (Q days) 30 Sexually Active? N Sexual Problems? Y Date of Last Pap Smear 08/26/2021 Obstetrics History GPAL:G 6 P 4 0 2 4 Type Value Full Term 4 Induced 1 Spontaneous 1 Living 4 Total 6 Immunizations Vaccine Type Date Status Note Provider Nam e and Address Organization Details Recorded Time zoster recombinant 07/30/2021 completed Joan Linares null, [facility] 01/29/2024 08:29:22 zoster recombinant 08/04/2022 completed Joan Linares null, [facility] 01/29/2024 08:29:22 COVID-19, mRNA, LNP-S, PF, 30 mcg/0.3 mL dose 09/24/2020 completed Joan Linares null, [facility] 01/29/2024 08:29:22 COVID-19, mRNA, LNP-S, PF, 30 mcg/0.3 mL dose 10/15/2020 completed Joan Linares null, [place] - [facility] 01/29/2024 08:29:22 COVID-19, mRNA, LNP-S, PF, 30 mcg/0.3 mL dose 06/03/2021 completed Joan Linares null, [place] - [facility] 01/29/2024 08:29:22 COVID-19, mRNA, LNP-S, PF, 30 mcg/0.3 mL dose, say-sucrose 11/28/2021 completed Joan Linares null, [facility] 01/29/2024 08:29:22 Tdap 12/12/2017 completed Joan Linares null, [facility] 01/29/2024 08:29:22 Hep B, unspecified formulation 08/25/2020 completed Joan Linares null, [facility] 01/29/2024 08:29:22 Hep B, unspecified formulation 01/23/2020 completed Joan Linares null, [facility] 01/29/2024 08:29:22 Hep B, unspecified formulation 02/25/2020 completed Joan Linares null, [facility] 01/29/2024 08:29:22 TST-PPD intradermal 01/09/2020 completed Joan Linares null, [facility] 01/29/2024 08:29:22 Influenza, split virus, quadrivalent, PF 04/27/2021 completed Joan Linares null, [facility] 01/29/2024 08:29:22 Influenza, split virus, quadrivalent, PF 05/24/2022 completed Joan Linares null, [facility] 01/29/2024 08:29:22 Past Encounters Encounter ID Performer Location Encounter Start Date Encounter Closed Date Diagnosis/Indication Diagnosis SNOMED-CT Code Diagnosis ICD10 Code Diagnosis Note [id number] GYPSY MEZA MD [id number] [address] [address] 10/12/2017 09:45:27 10/12/2017 10:40:09 Gynecologic examination [id number] Z01.419 Pt with normal dross puller exam. Counseled regarding contracept radhames options, pt doing well with BTL. Menses are regular, not painful. Pt is current every day smoker, not ready to quit, counseled about benefits and risks of tobacco use. Advised avoidance of tobacco, alcohol and drugs. Counseled regarding calcium 1200 mg/daily and vitamin D 800 IU/daily, healthy diet and exercise. Pap smear with HPV screen obtained, aware of 3 year recommenda tion. Pt on menses > aware pap may not be adequate and need for re-pap. Mammogram request sent, aware recommenda tion of screening every year > pt never had mammogram prior. Pt also does not have PCP > given referral for Dr. Cruz in [place] and routine blood work sent and to f/u with PCP if abnormal. Informed to RTO in 1 year for annual exam. [id number] GYPSY MEZA MD [address] [place] [address] 04/06/2018 14:18:58 04/06/2018 15:03:21 Irregular periods [id number] N92.6 Pt with irregular bleeding. discussed possible etiologies including menopausal transition , thyroid dysfunctio n, endometria l polyp. Advised evaluation with u/s and possible EMBx to rule out a pre-cancer or cancer. Pt will get TSH checked now. RTO for u/s and EMB. Pain of breast [id number] N64.4 Pt with left sided breast pain s/p mammogram, no abnormalit ies noted. Pt going for f/u imagin in 04/2018, keep this appointmen t. Advised trial of 1 week of NSAIDs and vitamin E. Pt advised if not better would refer to breast surgeon for evaluation . [id number] GYPSY MEZA MD [address] [place] [address] 01/17/2020 14:50:28 01/17/2020 15:28:14 Gynecologic examination [id number] Z01.419 Patient with normal annual dross puller exam. Pt satisfied with contracept ion choice, doing well. Pt aware of mammogram recommende d yearly screening. Pap smear obtained. Discussed healthy diet, exercise, weight management , vitamin D of 800 IU a day and calcium 1200 mg/day. RTO 1 year annual exam. Screening mammography 24 622526 Z12.31 Depression screening 171 688032 Z13.31 Screening for malignant neoplasm of cervix [id number] Z12.4 Premenstru al dysphoric disorder 839747 F32.81 Pt with worsening PMDD. Discussed treatment with ocp versus luteal phase. Pt was given Rx for escitalopr am, not yet taking regularly. Discussed trial of different medication . Will think about her options and call. [id number] GYPSY MEZA MD [address] [facility] [address] [place] [address] 08/26/2021 08:53:19 08/26/2021 09:36:35 Gynecologic examination [id number] Z01.419 Patient with normal annual dross puller exam. Pt satisfied with contracept ion choice, doing well. Pt aware of mammogram recommende d yearly screening. Pap smear obtained. Reviewed menopause definition , perimenopa use versus menopause. Given degree of atrophy and disomcomfo rt, plan to start topical estrogen. Discussed healthy diet, exercise, weight management , vitamin D of 800 IU a day and calcium 1200 mg/day. RTO 1 year annual exam. Screening for malignant neoplasm of cervix [id number] Z12.4 Screening mammography 24 884480 Z12.31 Depression screening 171 266710 Z13.31 Atrophic vaginitis 80243 000 N95.2 Pt with dyspareuni a secondary to atrophy. Discussed different treatment options. We reviewed using lubricant and vaginal moisturize r as well as medication options. Reviewed best treatment is topical estrogen. Discussed the different modes of administra tion including tablet, cream or vaginal ring. Discussed low systemic absorption , not related to an increase risk of breast cancer. Pt in agreement and desires trial of medication . [id number] GYPSY MEZA MD [address] [place] [address] 01/29/2024 08:21:23 01/29/2024 10:17:41 Pelvic mass [id number] R19.00 53 yo with feelings of a vaginal mass, on exam no mass appreciate d. No evidence of prolapse even with valsalva. Ultrasound normal. Reassuranc e provided. Pt aware if she feels it again to call and be seen that day. Pain in pelvis [id number] R10.2 Health Concerns Section Related Observation LastModified by Organization Detai ls LastModified Time None Recorded Concern Status LastModified by Organization Details LastModified Time None Recorded Advance Directives Directive None Recorded Payers Encounter Date Sequence Insurance Name Policy Number Policy Fitzpatrick Covered Member ID Fitzpatrick Member ID Guarantor Name 10/12/2017 1 [facility] [id number] Ashanti Chamberlain [id number] Ashanti Chamberlain 04/06/2018 1 [facility] [id number] Ashanti Chamberlain [id number] Ashanti Chamberlain 01/17/2020 1 [facility] [id number] Ashanti Chamberlain [id number] Ashantineel Chamberlain 08/26/2021 1 [place] [id number] Rey Chamberlain [id number] Ashanti Chamberlain 01/29/2024 1 [place] [id number] Rey Chamberlain [id number] Ashanti Chamberlain Notes Date Note Type Note Provider Name and Address Organization Details Recorded Time 10/12/2017 text/html [facility] Annual GYNReported bypatient.History:n o gynecologic complaints Menstrual cycle:Normal menses (> no IMB) Urinary symptoms:No hematuria;Stress incontinence(occasi onal, not bothersome) Vulva:No genital lesion Vagina:Normal vaginal discharge Breast:No breast pain; No breast lump; No nipple discharge Current Contraception:Satis fied with current contraception (> BTL); Monogamous relationship Sexual activity:sexually active yes; No sexual complaints (> no pain or PCB) Menopausal symptoms:No menopausal symptoms; Normal vaginal lubrication Psychological symptoms:No depression; No anxiety Preventive measures:Encourage self breast examination; Encourage regular exercise; Encourage no tobacco use; Followed with yearly pap smears (> as indicated); Needs to schedule mammogram (> req sent) GYPSY MEZA MD [address] [place] [address], [address], [place], [address], [place] [facility] 10/12/2017 11:19:02 04/06/2018 text/html 47 yo presents w ith a few months of irregular menses and left sided breast pain. Pt states her left breast pain started after having her second mammogram where there was a lot of squeezing and pushing and it has never been the same. She states she feels pain in the outer portion of her breast and has some tingling of her nipple and sometimes feels it radiate to her armpit and down her arm. She does not notice a correlation with her menses. She has no pain in the right breast. In regards to her bleeding, she reports have a menses every two weeks from November through december, then no menses in january, then a menses in february and now march. She reports the blood is also black. She denies any pain with menses. She reports no abnormal discharge, itching, burning or irritation. She denies abdominal bloating, fever, chills, hot flushes, vaginal dryness. She just got her menses today and does not want an exam. GYPSY MEZA MD [address] [place] [address], [address] [place] [address], [phone], [facility] 04/06/2018 15:35:04 01/17/2020 text/html [facility] Annual GYNReported bypatient.History:n o gynecologic complaints Menstrual cycle:Normal menses (> no IMB) Urinary symptoms:No hematuria;Stress incontinence(occasi onal, not bothersome) Vulva:No genital lesion Vagina:Normal vaginal discharge Breast:No breast pain; No breast lump; No nipple discharge Current Contraception:Satis fied with current contraception (> BTL); Monogamous relationship Sexual activity:sexually active yes; No sexual complaints (> no pain or PCB);Decreased libido Menopausal symptoms:No menopausal symptoms; Normal vaginal lubrication Psychological symptoms:No depression;Anxiety; PMDD prior to menstruation (3-10 days); worsening PMS< bloating and anxiety prior to menses Preventive measures:Encourage self breast examination; Encourage regular exercise; Encourage no tobacco use; Followed with yearly pap smears (> as indicated); Mammogram performed within the past year GYPSY MEZA MD [address] [facility], [address] [place] [address], [phone], [facility] 01/19/2020 11:24:32 08/26/2021 text/html [facility] Annual GYNReported bypatient.History:p t c/o severe dryness of the vagina and vaginal pain/discomfort with intercourse, states she thinks she is going through the change ; LMP 01/2021; had hot flushes for a few months and worse at night, have improved, does still feel PMS symptoms occasionally but no bleeding Menstrual cycle:Perimenopausa l(LMP 01/2021) Urinary symptoms:No hematuria;Stress incontinence(occasi onal, not bothersome) Vulva:No genital lesion Vagina:Normal vaginal discharge Breast:No breast pain; No breast lump; No nipple discharge Current Contraception:Satis fied with current contraception (> BTL); Monogamous relationship Sexual activity:sexually active yes;Sexual complaints;Pain during intercourse;Decreas ed libido;Inhibited or absent female orgasm Menopausal symptoms:Hot flashes;Inadequacy of lubrication of vaginal mucosa Psychological symptoms:No depression;Anxiety Preventive measures:Encourage self breast examination; Encourage regular exercise; Encourage no tobacco use (quit 2 years ago, using nicotine patch prn); Followed with yearly pap smears (> as indicated); Needs to schedule mammogram; Up to date on colonoscopy screening (2019 > 5 years) GYPSY MEZA MD [address] [place] [address], [address] [place], [address], [facility] 08/26/2021 10:28:17 01/29/2024 text/html 53 yo presents d ue to concern about a vaginal mass. Pt states she noticed it about 2 weeks ago, saw her PCP and was also having vaginal pain and LLQ pain. Her PCP looked externally per the patient and said you need to see your customer services manager. She also ordered a CT scan and advised an ultrasound. Pt here for ultrasound and evaluation. Pt states the mass is long. She states she was going to the bathroom and went to wipe and felt it. then took a mirror to look and saw something. She states no bleeding, LMP 06/2023. She reports her LLQ pain has resolved. She does have some constipation. No diarrhea, N/V. Pt denies dysuria, fever, chills, abnormal vaginal discharge. GYPSY MEZA MD [address] [facility], [address] [facility], [place], [address], [facility] 01/30/2024 08:51:39 OBGyn Episode Ob Episode Information Episode Created Date Number of Fetuses Patient Bloodtype Patient rh Status Prepregnancy Weight lbs Domestic Partner Domestic Partner Phone Father Name Spindraw Operator Status 10/13/19 18 1 CLOSED Fetus Data First Name Last Name Admitted to NICU Weight (g) Sex Living Outcome Pediatric Complications Fetus ID Race Codes Race Delivery Type F [id number] Vaginal Delivery Garcia Calculation Initial Garcia Date Initial Exam Date Initial Exam Provider Initial Ultrasound Date Last Menstrual Period Date Ultra Sound Weeks Gestation 0 Eighteen To Twenty Week Garcia Update Ultra Sound Date Fundal Height At Umbil Quickening Date Ultra Sound Latest Weeks Gestation Final Garcia Confirmed By Final Garcia Confirmed Date Final Garcia Date Ultra Sound Latest Days Gestation 0 0 Menstrual History Last Menstrual Date Menses Monthly On Bcp Conception Prior Menses Frequency Hcg Plus Date Menarche Onset Age Delivery Information Delivery Date Delivery Type Labor Anesthesia Weeks Gestation Incision Type Labor Labor Length Hrs Delivered By Post Complications Tubal Sterilization Discharge Date Comments 9 Discharge Information Feeding Method Contraceptive Method Maternal HG B and HCT Levels Ob Episode Information Episode Created Date Number of Fetuses Patient Bloodtype Patient rh Status Prepregnancy Weight lbs Domestic Partner Domestic Partner Phone Father Name Spindraw Operator Status 10/13/19 18 1 CLOSED Fetus Data First Name Last Name Admitted to NICU Weight (g) Sex Living Outcome Pediatric Complications Fetus ID Race Codes Race Delivery Type , Spontane ous [id number] Garcia Calculation Initial Garcia Date Initial Exam Date Initial Exam Provider Initial Ultrasound Date Last Menstrual Period Date Ultra Sound Weeks Gestation 0 Eighteen To Twenty Week Garcia Update Ultra Sound Date Fundal Height At Umbil Quickening Date Ultra Sound Latest Weeks Gestation Final Garcia Confirmed By Final Garcia Confirmed Date Final Garcia Date Ultra Sound Latest Days Gestation 0 0 Menstrual History Last Menstrual Date Menses Monthly On Bcp Conception Prior Menses Frequency Hcg Plus Date Menarche Onset Age Delivery Information Delivery Date Delivery Type Labor Anesthesia Weeks Gestation Incision Type Labor Labor Length Hrs Delivered By Post Complications Tubal Sterilization Discharge Date Comments 6 Discharge Information Feeding Method Contraceptive Method Maternal HG B and HCT Levels Ob Episode Information Episode Created Date Number of Fetuses Patient Bloodtype Patient rh Status Prepregnancy Weight lbs Domestic Partner Domestic Partner Phone Father Name Spindraw Operator Status 10/13/19 18 1 CLOSED Fetus Data First Name Last Name Admitted to NICU Weight (g) Sex Living Outcome Pediatric Complications Fetus ID Race Codes Race Delivery Type F [id number] Vaginal Delivery Garcia Calculation Initial Garcia Date Initial Exam Date Initial Exam Provider Initial Ultrasound Date Last Menstrual Period Date Ultra Sound Weeks Gestation 0 Eighteen To Twenty Week Garcia Update Ultra Sound Date Fundal Height At Umbil Quickening Date Ultra Sound Latest Weeks Gestation Final Garcia Confirmed By Final Garcia Confirmed Date Final Garcia Date Ultra Sound Latest Days Gestation 0 0 Menstrual History Last Menstrual Date Menses Monthly On Bcp Conception Prior Menses Frequency Hcg Plus Date Menarche Onset Age Delivery Information Delivery Date Delivery Type Labor Anesthesia Weeks Gestation Incision Type Labor Labor Length Hrs Delivered By Post Complications Tubal Sterilization Discharge Date Comments 8 Discharge Information Feeding Method Contraceptive Method Maternal HG B and HCT Levels Ob Episode Information Episode Created Date Number of Fetuses Patient Bloodtype Patient rh Status Prepregnancy Weight lbs Domestic Partner Domestic Partner Phone Father Name Spindraw Operator Status 10/13/19 18 1 CLOSED Fetus Data First Name Last Name Admitted to NICU Weight (g) Sex Living Outcome Pediatric Complications Fetus ID Race Codes Race Delivery Type M [id number] Vaginal Delivery Garcia Calculation Initial Garcia Date Initial Exam Date Initial Exam Provider Initial Ultrasound Date Last Menstrual Period Date Ultra Sound Weeks Gestation 0 Eighteen To Twenty Week Garcia Update Ultra Sound Date Fundal Height At Umbil Quickening Date Ultra Sound Latest Weeks Gestation Final Garcia Confirmed By Final Garcia Confirmed Date Final Garcia Date Ultra Sound Latest Days Gestation 0 0 Menstrual History Last Menstrual Date Menses Monthly On Bcp Conception Prior Menses Frequency Hcg Plus Date Menarche Onset Age Delivery Information Delivery Date Delivery Type Labor Anesthesia Weeks Gestation Incision Type Labor Labor Length Hrs Delivered By Post Complications Tubal Sterilization Discharge Date Comments 2 Discharge Information Feeding Method Contraceptive Method Maternal HG B and HCT Levels Ob Episode Information Episode Created Date Number of Fetuses Patient Bloodtype Patient rh Status Prepregnancy Weight lbs Domestic Partner Domestic Partner Phone Father Name Spindraw Operator Status 10/13/19 18 1 CLOSED Fetus Data First Name Last Name Admitted to NICU Weight (g) Sex Living Outcome Pediatric Complications Fetus ID Race Codes Race Delivery Type , Induced [id number] Garcia Calculation Initial Garcia Date Initial Exam Date Initial Exam Provider Initial Ultrasound Date Last Menstrual Period Date Ultra Sound Weeks Gestation 0 Eighteen To Twenty Week Garcia Update Ultra Sound Date Fundal Height At Umbil Quickening Date Ultra Sound Latest Weeks Gestation Final Garcia Confirmed By Final Garcia Confirmed Date Final Garcia Date Ultra Sound Latest Days Gestation 0 0 Menstrual History Last Menstrual Date Menses Monthly On Bcp Conception Prior Menses Frequency Hcg Plus Date Menarche Onset Age Delivery Information Delivery Date Delivery Type Labor Anesthesia Weeks Gestation Incision Type Labor Labor Length Hrs Delivered By Post Complications Tubal Sterilization Discharge Date Comments 0 Discharge Information Feeding Method Contraceptive Method Maternal HG B and HCT Levels Ob Episode Information Episode Created Date Number of Fetuses Patient Bloodtype Patient rh Status Prepregnancy Weight lbs Domestic Partner Domestic Partner Phone Father Name Spindraw Operator Status 10/13/19 18 1 CLOSED Fetus Data First Name Last Name Admitted to NICU Weight (g) Sex Living Outcome Pediatric Complications Fetus ID Race Codes Race Delivery Type F [id number] Vaginal Delivery Garcia Calculation Initial Garcia Date Initial Exam Date Initial Exam Provider Initial Ultrasound Date Last Menstrual Period Date Ultra Sound Weeks Gestation 0 Eighteen To Twenty Week Garcia Update Ultra Sound Date Fundal Height At Umbil Quickening Date Ultra Sound Latest Weeks Gestation Final Garcia Confirmed By Final Garcia Confirmed Date Final Garcia Date Ultra Sound Latest Days Gestation 0 0 Menstrual History Last Menstrual Date Menses Monthly On Bcp Conception Prior Menses Frequency Hcg Plus Date Menarche Onset Age Delivery Information Delivery Date Delivery Type Labor Anesthesia Weeks Gestation Incision Type Labor Labor Length Hrs Delivered By Post Complications Tubal Sterilization Discharge Date Comments 8 Discharge Information Feeding Method Contraceptive Method Maternal HG B and HCT Levels
--- OUTSIDE RECORDS SUMMARY | 2024-08-11 23:53 | XMS_ITS | Clinical Summary ---
Author Organization [facility] Address [address] [place] [address] Care Team Providers Care Getter Welder Name Role Phone Pcp, No Primary Care Provider Unavailabl e Allergies Active Allergy Reactions Criticality Noted Date Comments Chocolate Hives Medium 12/12/2017 Ibuprofen Other (See Comments) 12/12/2017 Developed an ulcer Medications Medication Sig Dispensed Refills Start Date End Date Status aspirin-acetaminophen- caffeine (EXCEDRIN MIGRAINE) 250-250-65 mg per tablet Take 1 tablet by mouth 4 times daily (every 6 hours) as needed for headaches. Active Active Problems Problem Noted Date Diagnosed Date Migraine with aura and witho ut status migrainosus, not intractable 12/12/2017 Tobacco abuse disorder 12/12/2017 Resolved Problems Problem Noted Date Diagnosed Date Resolved Date Routine medical exam 12/12/2017 024 Immunizations Name Administration Dates Next Due Pneumococcal Polysaccharide 23-Valent 12/12/2017 Tdap 12/12/2017 Family History Medical History Relation Name Comments Heart attack Father Diabetes Maternal Aunt Mental illness Maternal Aunt Hyperlipidemia Mother Hypertension Mother Arthritis Paternal Grandmother Colon cancer Paternal Grandmother Anxiety disorder Sister Relation Name Status Comments Father Maternal Aunt Mother Paternal Grandmother Sister Social History Tobacco Use Types Packs/Day Years Used Date Smoking Tobacco: Every Day Cigarettes Smokeless Tobacco: Never Alcohol Use Standard Drinks/Week Comments Yes 0 (1 standard drink = 0.6 oz pur e alcohol) socially Sex and Gender Information Value Date Recorded Sex Assigned at Not on file Gender Identity Not on file Sexual Orientation Not on file Last Filed Vital Signs Vital Sign Reading Time Taken Comments Blood Pressure 126/86 12/12/2017 3:05 PM EDT Pulse 61 12/12/2017 3:05 PM EDT Temperature 37.1 ??C (98.7 ??F) 12/12/2017 3:05 PM ED T Respiratory Rate 16 12/12/2017 3:05 PM EDT Oxygen Saturation 97% 12/12/2017 3:05 PM EDT Inhaled Oxygen Concentration - - Weight 67.6 kg (149 lb) 12/12/2017 3:05 PM EDT Height 154.9 cm (5' 1 ) 12/12/2017 3:05 PM EDT Body Mass Index 28.15 12/12/2017 3:05 PM EDT Plan of Treatment Health Maintenance Due Date Last Done Comments Hepatitis C Virus Screening 1968 HIV Screening 1981 Hepatitis B Vaccines (1 of 3 - 19+ 3-dose series) 1987 Colonoscopy 2018 Zoster (Shingles) Vaccine (1 of 2) 2018 Pneumococcal Vaccines 50+ (2 of 2 - PCV) 12/12/2018 12/12/2017 Mammogram 12/11/2020 12/12/2019 Influenza Vaccine 01/18/2024 04/27/2021 COVID-19 Vaccine (4 - 2023-2 5 season) 2024 06/03/2021, 10/15/2020, 09/24/2020 Pap Smear (Ages 21-65) 08/26/2024 , 01/17/2020 DTaP/Tdap/Td Vaccines (2 - T d or Tdap) 12/13/2027 12/12/2017 Pneumococcal Vaccine: Pediatric (0-5 Years) and At-Risk Patients (6 to 49 Years) Aged Out 12/12/2017 No longer eligible b ased on patient's age to complete this topic Procedures Procedure Name Priority Date/Time Associated Diagnosis Comments THINPREP PAP(NURSING CENTER TUTOR) HPV SCR RFX HPV 16,18/45 Routine 08/26/2021 12:00 AM EST MG PATI- BREAST DIAGNOSTIC BILATERAL Routine 12/12/2019 2:04 PM EDT from Last 3 Months or Most Recently Relevant to Health Maintenance Results * ThinPrep Pap(Contract Implementation Analyst) HPV Scr Rfx HPV 16,18/45 (08/26/2021 12:00 AM EST) Report Report [facility] Comment: Final Gynecological Cytology Report ThinPrep Pap Test, HPV Screen, Reflex HPV Genotype SPECIMEN ADEQUACY: SATISFACTORY FOR EVALUATION; ENDOCERVICAL/TRANSFORMATION ZONE COMPONENT PRESENT. INTERPRETATION: NEGATIVE FOR INTRAEPITHELIAL LESION OR MALIGNANCY. Electronically Signed: ??Malik Chaparro, ALEX (ASCP) CLINICAL INFORMATION: LMP: NG Clinical History: ??RTN Specimen Source: ??Cervix, Endocervix HPV RESULTS: HPV mRNA E6/E7 ?? [id number] ?? Approved: 08/27/21 Negative ? REF RANGE: Negative CPT Codes: 82359 ICD Codes: Z12.4 Other 08/26/2021 08/27/2021 3:5 3 AM EST Narrative [facility] - 08/31/2021 6:17 AM EDT CC: STEVEN FORMAN APRN, FAX ([phone] Terri Cooper MD PATHOLOGY/CYTOLOGY O CARMEN [facility] [address] [place] [address] * MG PATI- BREAST DIAGNOSTIC BILATERAL (12/12/2019 2:04 PM EDT) Anatomical Region Laterality Modality Other 12/11/2019 6:00 PM EDT 12/11/2019 6:00 PM EDT Narrative 12/12/2019 2:04 PM EDT HISTORY: Patient is 49 years old and is seen for diagnostic evaluation of palpable lump, asymmetry or skin thickening and focal pain in the right breast. The patient has no personal history of breast or ovarian cancer. The patient has no family history of breast cancer. FILMS COMPARED: The present examination has been compared to prior imaging studies dated 11/02/2017 and 10/17/2017. PATI STATEMENT: 3d imaging (digital breast tomosynthesis) was used by the Radiologist in the interpretation of this examination.Computer-aided detection was utilized by the radiologist in the interpretation of this examination. The following digital mammographic views were obtained: bilateral craniocaudal with tomosynthesis, bilateral mediolateral oblique with tomosynthesis, right craniocaudal spot compression with tomosynthesis, and right mediolateral oblique spot compression with tomosynthesis. MAMMOGRAM FINDINGS: There are scattered fibroglandular densities. (ACR BIRADS density Category b) * There is no radiographic abnormality in the region of the palpable abnormality in the right breast at 9 oclock located 8 centimeters from the nipple. In the left breast, no suspicious masses, calcifications or other abnormalities are seen. ULTRASOUND FINDINGS: Targeted high resolution grayscale sonography was performed of the area of concern. There is an area of altered echotexture with peripheral vascularity measuring 12 millimeters seen in the right breast at 9 oclock located 8 centimeters from the nipple. Internal echogenicity is echogenic. Finding correlates to the palpable abnormality in the right breast at 9 oclock located 8 centimeters from the nipple. ??Sudden appearance of a painful lump a few weeks ago, now improving. No trauma or bruising. Looks like fat necrosis. Palpable and tender on my exam. Will follow to look for continued resolution. IMPRESSION: Area of altered echotexture in the right breast is probably benign. Short interval follow up ultrasound of the right breast in 1 month is recommended. The patient was informed of these findings at the time of the exam. The patient will receive a lay summary of the results of this breast imaging exam. Lay summaries for mammography examinations will also identify the patients personal breast tissue composition as required by state law. BIRADS Category 3: Probably Benign Finding(s) Thank you for referring your patient to us, Regino Alicea MD [id number] (Electronically Signed - 12/12/2019 14:04) Procedure Note Regino Alicea MD - 12/12/2019 HISTORY: Patient is 49 years old and is seen for diagnostic evaluation of palpablelump, asymmetry or skin thickening and focal pain in the right breast. The patient has no personal history of breast or ovarian cancer. The patient has no family history of breast cancer. FILMS COMPARED: The present examination has been compared to prior imaging studies dated11/02/2017 and 10/17/2017. PATI STATEMENT: 3d imaging (digital breast tomosynthesis) was used by the Radiologist inthe interpretation of this examination.Computer-aided detection wasutilized by the radiologist in the interpretation of this examination. The following digital mammographic views were obtained: bilateralcraniocaudal with tomosynthesis, bilateral mediolateral oblique withtomosynthesis, right craniocaudal spot compression with tomosynthesis, andright mediolateral oblique spot compression with tomosynthesis. MAMMOGRAM FINDINGS: There are scattered fibroglandular densities. (ACR BIRADS density Categoryb) * There is no radiographic abnormality in the region of the palpableabnormality in the right breast at 9 oclock located 8 centimeters from thenipple. In the left breast, no suspicious masses, calcifications or otherabnormalities are seen. ULTRASOUND FINDINGS: Targeted high resolution grayscale sonography was performed of the area ofconcern. There is an area of altered echotexture with peripheral vascularitymeasuring 12 millimeters seen in the right breast at 9 oclock located 8centimeters from the nipple. Internal echogenicity is echogenic. Findingcorrelates to the palpable abnormality in the right breast at 9 oclock located 8 centimeters from the nipple.Sudden appearance of a painful lump a few weeks ago, now improving. No trauma or bruising. Looks like fat necrosis. Palpable and tender on my exam. Will follow to look for continued resolution. IMPRESSION: Area of altered echotexture in the right breast is probably benign. Shortinterval follow up ultrasound of the right breast in 1 month isrecommended. The patient was informed of these findings at the time of the exam. The patient will receive a lay summary of the results of this breastimaging exam. Lay summaries for mammography examinations will alsoidentify the patients personal breast tissue composition as required bystate law. BIRADS Category 3: Probably Benign Finding(s) Thank you for referring your patient to us, Regino Alicea MD [id number] (Electronically Signed - 12/12/2019 14:04) Katerin Brown MD IMG LEGACY PROCEDU RES from Last 3 Months or Most Recently Relevant to Health Maintenance Care Teams Getter Welder Relationship Specialty Start Date End Date Pcp, No PCP - General General Medicine 01/18/19
--- OUTSIDE RECORDS SUMMARY | 2024-08-11 23:53 | XMS_ITS | Clinical Summary ---
Author Organization [facility] Address [address] [place] [address] Care Team Providers Care Oracle Programmer Name Role Phone Luda Drew APRN Primary Care Provider [phone] Allergies No known active allergies Medications Medication Sig Dispensed Refills Start Date End Date Status meclizine (ANTIVERT) 12.5 MG tablet Take 0.5 tablets (6.25 mg total) by mouth 4 (four) times a day as needed. 30 tablet 0 10/22/2020 Active Immunizations Name Administration Dates Next Due Covid-19 (Pfizer) Dilution Required 10/15/2020,0 09/24/2020 Family History Medical History Relation Name Comments Breast cancer Neg Hx Social History Tobacco Use Types Packs/Day Years Used Date Smoking Tobacco: Every Day Cigarettes 0.5 Smokeless Tobacco: Never Alcohol Use Standard Drinks/Week Comments Yes 0 (1 standard drink = 0.6 oz pur e alcohol) rarely Sex and Gender Information Value Date Recorded Sex Assigned at Female 09/24/2020 3:10 PM EDT Gender Identity Not on file Sexual Orientation Not on file Job Start Date Occupation Industry Not on file Not on file Not on file Last Filed Vital Signs Vital Sign Reading Time Taken Comments Blood Pressure 126/85 10/22/2020 4:24 PM EDT Pulse 94 10/22/2020 4:24 PM EDT Temperature 37.2 ??C (98.9 ??F) 10/22/2020 4:24 PM ED T Respiratory Rate 18 10/22/2020 4:24 PM EDT Oxygen Saturation 97% 10/22/2020 4:24 PM EDT Inhaled Oxygen Concentration - - Weight 65.3 kg (144 lb) 01/18/2018 7:04 PM EDT Height 154.9 cm (5' 1 ) 01/18/2018 7:04 PM EDT Body Mass Index 27.21 01/18/2018 7:04 PM EDT Plan of Treatment Health Maintenance Due Date Last Done Comments Hepatitis C Screening 1968 Depression Screening 1980 Preventative Health Evaluation 1986 Cervical Cancer Screening (Pap Smear) 1989 Colon Cancer Screening (Colonoscopy) 2013 Pneumococcal Vaccine (2 of 2 - PCV) 12/12/2018 12/12/2017 COVID-19 Vaccine ( season) 2024 11/28/2021, 06/03/2021, 10/15/2020, Additional history exists Influenza Vaccine (#1) 2024 05/24/2022, 2020 Breast Cancer Screening (Mammogram) 08/11/2024 08/11/2022 DTap / Tdap / Td (2 - Td or Tdap) 12/13/2027 12/12/2017 Hepatitis B Vaccines Completed 08/25/2020, 02/25/2020, 01/23/2020 Shingrix-Zoster Vaccine Completed 08/04/2022, 07/30 RSV Ped < 20 months Aged Out No longe r eligible based on patient's age to complete this topic Advance Directives For more information, please contact: [phone] Documents on File Type Date Recorded Patient Long Term Care Pharmacist Expl anation Advance Directive and Living Will 01/18/2018 7:31 PM Care Teams Oracle Programmer Relationship Specialty Start Date End Date Luda Drew APRN [address] [facility] [place] [address] PCP - General Family Medicine 09/24/20
--- OUTSIDE RECORDS SUMMARY | 2024-08-11 23:53 | XMS_ITS | Data Portability ---
Author Organization [place] - [facility], [facility] Address [address] [place] [address] Care Team Providers Care Service Greeter Name Role Phone STEVEN DREW Primary Care Provider GYPSY MEZA Defense Analyst Assessment No assessment recorded. Plan of Treatment Reminders Order Date Submit Date Provider Last Modified By Organization Details Last Modified Time Details Appointments PHYSICAL EXAM 45 2024 08:30A Ximena Drew, JOELLE Not available Not available Not available Lab urinalysi s, dipstick 2024 025 [email or web address] [facility], [address] [facility], [place], [address], 06/20/2024 09:32:33 HIV (1+2) Ab screen, serum 2024 025 [email or web address] [facility], [address] [facility], [address], [place], [address], 07/02/2024 11:36:06 RPR (rapid plasma reagin), serum 2024 025 CARYL [facility], [address] [facility] [facility], [address], [place], [address], 06/26/2024 04:45:51 CT + NG DNA, PCR, urine 2024 025 [email or web address] [employer] [facility], [address] [facility] [facility], [address], [place], [address], 07/02/2024 11:36:06 HSV 1+2 IgG Ab, CSF 2024 025 [employer] [facility], [address], [address], [place], [address], 06/26/2024 04:45:50 bacterial vaginosis + vaginitis panel, vaginal 2024 025 TAYLOR [employer] [facility], [address], [address], [place], [address], 06/26/2024 04:45:50 rapid strep group A, throat [address], [address] [facility], [place], [address], 06/03/2024 14:01:20 rapid SARS CoV 2 Ag, QL IA, respirato ry specimen [address], [address] [facility], [place], [address], 06/03/2024 14:01:20 rapid flu (A+B) [address], [address] [facility], [place], [address], 06/03/2024 14:01:20 erythrocy te sedimenta tion rate by westergre n method 2023 024 [employer] [facility], [address], [address], [place], [address], 01/01/2024 06:27:39 C-reactiv e protein, quantitat radhames, serum or plasma 2023 024 [employer] [facility], [address], [address], [place], [address], 01/01/2024 06:27:41 CK (creatine kinase), total, serum 2023 [facility], [address], [address], [place], [address], 01/01/2024 06:27:39 CMP, serum or plasma 2023 [facility], [address], [address], [place], [address], 01/01/2024 06:27:38 CBC w/ auto diff 2023 [facility], [address], [address], [place], [address], 01/01/2024 06:27:40 rf (rheumato id factor), serum 2023 [facility], [address], [address], [place], [address], 01/01/2024 06:27:40 vitamin B12, serum 2023 [facility], [address], [address], [place], [address], 01/01/2024 06:27:42 ccp (cyclic citrullin ated peptide) igg, serum 2023 [facility], [address], [address], [place], [address], 01/01/2024 06:27:41 Referral gynecolog ist referral - vaginal mass, vaginal pressure, LLQ pain, lower abdominal bloating 2023 rani Meza, [address], [address], [place], [address], 01/11/2024 14:52:02 Procedures None recorded. Surgeries None recorded. Imaging CT, abdomen + pelvis, w/ contrast - LLQ pain x 3 days with pelvic bloating, vaginal mass on exam 2023 [facility]), [address] [facility], [address], [place], [address], 01/15/2024 12:09:46 Medication Orders amoxicill in 875 mg tablet 2023 [id number], [address] [place], [address], 06/20/2024 08:14:30 prednison e 10 mg tablet 2023 024 [facility], [address] [place], [address], 01/11/2024 14:34:47 prednison e 10 mg tablet 2023 024 [facility], [address] [place], [address], 12/28/2023 09:41:56 Patient TargetsNo targets recorded. Patient Instructions Encounter Date Encounter Id Patient Instructions Last Modified By Organization Details Last Modified Time 06/03/2024 [id number] Advised the patient drink lots of liquids inhale steam Tylenol or ibuprofen OTC cough decongestant combination as needed. 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 Va ginal mass vaginal mass, vaginal pressure, LLQ pain, lower abdominal bloating Referring Physician: Steven Drew, Family Medicine, Encounter Date: 01/11/2024 Results Created Date Observation Date Name Description Value Unit Range Abnormal Flag Note LastModifiedBy Organization Detail LastModifiedTime 10/17/19 24 10/17/2023 PPD (donis fied prote in deriv ative ), skin test Plant Location Left Forear m Not Available [facility] [address] [facility], [place], [address], 10/16/2023 11:39:10 10/17/19 24 10/17/2023 PPD (donis fied prote in deriv ative ), skin test TB Read negati ve Not Available [facility] [address], [place], [address], 10/16/2023 11:39:10 10/31/19 24 10/31/2023 PPD (donis fied prote in deriv ative ), skin test Plant Location Right Forear m Not Available [facility] [address], [place], [address], 10/25/2023 13:26:52 10/31/19 24 10/31/2023 PPD (donis fied prote in deriv ative ), skin test TB Read negati ve Not Available [facility] [address], [place], [address], 10/25/2023 13:26:52 12/28/19 24 01/01/2024 COMPR EHENS RADHAMES METAB OLIC PANEL glucose 83 mg/dL 65-99 normal Fasti ng refer ence inter rory Not Available [facility] [address], [address], 01/01/2024 06:27:38 12/28/19 24 01/01/2024 COMPR EHENS RADHAMES METAB OLIC PANEL urea nitrogen (BUN) 18 mg/dL 7-25 normal Not Available [email or web address] [address], [address], 01/01/2024 06:27:38 12/28/19 24 01/01/2024 COMPR EHENS RADHAMES METAB OLIC PANEL creatinine 0.95 mg/dL 0.50-1 .03 normal Not Available [email or web address] [address], [address], 01/01/2024 06:27:38 12/28/19 24 01/01/2024 COMPR EHENS RADHAMES METAB OLIC PANEL eGFR 71 mL/mi n/1.7 3m2 > or = 60 normal Not Available [facility] [address], [place], [address], 01/01/2024 06:27:38 12/28/19 24 01/01/2024 COMPR EHENS RADHAMES METAB OLIC PANEL BUN/creatini ne ratio SEE NOTE: (calc ) 6-22 Not Repor christina: BUN and Creat inine are withi n refer ence range . Not Available [facility] [address], [place], [address], 01/01/2024 06:27:38 12/28/19 24 01/01/2024 COMPR EHENS RADHAMES METAB OLIC PANEL sodium 138 mmol/ L 135-14 6 normal Not Available [facility] [address], [place], [address], 01/01/2024 06:27:38 12/28/19 24 01/01/2024 COMPR EHENS RADHAMES METAB OLIC PANEL potassium 4.5 mmol/ L 3.5-5. 3 normal Not Available [facility] [address], [place], [address], 01/01/2024 06:27:38 12/28/19 24 01/01/2024 COMPR EHENS RADHAMES METAB OLIC PANEL chloride 107 mmol/ L 98-110 normal Not Available [facility] [address], [place], [address], 01/01/2024 06:27:38 12/28/19 24 01/01/2024 COMPR EHENS RADHAMES METAB OLIC PANEL carbon dioxide 24 mmol/ L 20-32 normal Not Available [facility] [address], [place], [address], 01/01/2024 06:27:38 12/28/19 24 01/01/2024 COMPR EHENS RADHAMES METAB OLIC PANEL calcium 9.5 mg/dL 8.6-10 .4 normal Not Available [facility] [address], [place], [address], 01/01/2024 06:27:38 12/28/19 24 01/01/2024 COMPR EHENS RADHAMES METAB OLIC PANEL protein, total 7.2 g/dL 6.1-8. 1 normal Not Available [facility] [address], [place], [address], 01/01/2024 06:27:38 12/28/19 24 01/01/2024 COMPR EHENS RADHAMES METAB OLIC PANEL albumin 3.9 g/dL 3.6-5. 1 normal Not Available [facility] [address], [place], [address], 01/01/2024 06:27:38 12/28/19 24 01/01/2024 COMPR EHENS RADHAMES METAB OLIC PANEL globulin 3.3 g/dL_ (calc ) 1.9-3. 7 normal Not Available [facility] [address], [place], [address], 01/01/2024 06:27:38 12/28/19 24 01/01/2024 COMPR EHENS RADHAMES METAB OLIC PANEL albumin/glob ulin ratio 1.2 (calc ) 1.0-2. 5 normal Not Available [facility] [address], [place], [address], 01/01/2024 06:27:38 12/28/19 24 01/01/2024 COMPR EHENS RADHAMES METAB OLIC PANEL bilirubin, total 0.2 mg/dL 0.2-1. 2 normal Not Available [facility] [address], [place], [address], 01/01/2024 06:27:38 12/28/19 24 01/01/2024 COMPR EHENS RADHAMES METAB OLIC PANEL alkaline phosphatase 77 U/L 37-153 normal Not Available [facility] [address], [place], [address], 01/01/2024 06:27:38 12/28/19 24 01/01/2024 COMPR EHENS RADHAMES METAB OLIC PANEL AST 21 U/L 10-35 normal Not Available [facility] [address], [place], [address], 01/01/2024 06:27:38 12/28/19 24 01/01/2024 COMPR EHENS RADHAMES METAB OLIC PANEL ALT 32 U/L 6-29 high Not Available [facility] [address], [place], [address], 01/01/2024 06:27:38 12/28/19 24 01/01/2024 CREAT INE KINAS E, TOTAL creatine kinase, total 56 U/L 29-143 normal Not Available [facility] [address], [place], [address], 01/01/2024 06:27:39 12/28/19 24 01/01/2024 SED RATE BY MODIF IED WESTE RGREN sed rate by modified westergren 14 mm/h < or = 30 normal Not Available [facility] [address], [place], [address], 01/01/2024 06:27:39 12/28/19 24 01/01/2024 CBC (INCL UDES DIFF/ PLT) white blood cell count 5.9 thous and/u L 3.8-10 .8 normal Not Available [email or web address] [address], [place], [address], 01/01/2024 06:27:40 12/28/19 24 01/01/2024 CBC (INCL UDES DIFF/ PLT) red blood cell count 5.11 shagufta on/uL 3.80-5 .10 high Not Available [facility] [address], [place], [address], 01/01/2024 06:27:40 12/28/19 24 01/01/2024 CBC (INCL UDES DIFF/ PLT) hemoglobin 14.3 g/dL 11.7-1 5.5 normal Not Available [facility] [address], [place], [address], 01/01/2024 06:27:40 12/28/19 24 01/01/2024 CBC (INCL UDES DIFF/ PLT) hematocrit 44.5 % 35.0-4 5.0 normal Not Available [email or web address] [address], [place], [address], 01/01/2024 06:27:40 12/28/19 24 01/01/2024 CBC (INCL UDES DIFF/ PLT) MCV 87.1 fL 80.0-1 00.0 normal Not Available [facility] [address], [place], [address], 01/01/2024 06:27:40 12/28/19 24 01/01/2024 CBC (INCL UDES DIFF/ PLT) MCH 28.0 pg 27.0-3 3.0 normal Not Available [email or web address] [address], [place], [address], 01/01/2024 06:27:40 12/28/19 24 01/01/2024 CBC (INCL UDES DIFF/ PLT) MCHC 32.1 g/dL 32.0-3 6.0 normal Not Available [facility] [address], [place], [address], 01/01/2024 06:27:40 12/28/19 24 01/01/2024 CBC (INCL UDES DIFF/ PLT) RDW 13.2 % 11.0-1 5.0 normal Not Available [facility] [place] [facility] [address], [place], [address], 01/01/2024 06:27:40 12/28/19 24 01/01/2024 CBC (INCL UDES DIFF/ PLT) platelet count 277 thous and/u L 140-40 0 normal Not Available [facility] [place] [facility] [address], [place], [address], 01/01/2024 06:27:40 12/28/19 24 01/01/2024 CBC (INCL UDES DIFF/ PLT) MPV 10.7 fL 7.5-12 .5 normal Not Available [facility] [place] [facility] [address], [place], [address], 01/01/2024 06:27:40 12/28/19 24 01/01/2024 CBC (INCL UDES DIFF/ PLT) absolute neutrophils 3086 cells /uL 1500-7 800 normal Not Available [facility] [place] [facility] [address], [place], [address], 01/01/2024 06:27:40 12/28/19 24 01/01/2024 CBC (INCL UDES DIFF/ PLT) absolute lymphocytes 2030 cells /uL 850-39 00 normal Not Available [facility] [place] [facility] [address], [place], [address], 01/01/2024 06:27:40 12/28/19 24 01/01/2024 CBC (INCL UDES DIFF/ PLT) absolute monocytes 413 cells /uL 200-95 0 normal Not Available [facility] [place] [facility] [address], [place], [address], 01/01/2024 06:27:40 12/28/19 24 01/01/2024 CBC (INCL UDES DIFF/ PLT) absolute eosinophils 330 cells /uL 15-500 normal Not Available [facility] [place] [facility] [address], [place], [address], 01/01/2024 06:27:40 12/28/19 24 01/01/2024 CBC (INCL UDES DIFF/ PLT) absolute basophils 41 cells /uL 0-200 normal Not Available [facility] [place] [facility] [address], [place], [address], 01/01/2024 06:27:40 12/28/19 24 01/01/2024 CBC (INCL UDES DIFF/ PLT) neutrophils 52.3 % normal Not Available [facility] [place] [facility] [address], [place], [address], 01/01/2024 06:27:40 12/28/19 24 01/01/2024 CBC (INCL UDES DIFF/ PLT) lymphocytes 34.4 % normal Not Available [facility] [place] [facility] [address], [place], [address], 01/01/2024 06:27:40 12/28/19 24 01/01/2024 CBC (INCL UDES DIFF/ PLT) monocytes 7.0 % normal Not Available [facility] [place] [facility] [address], [place], [address], 01/01/2024 06:27:40 12/28/19 24 01/01/2024 CBC (INCL UDES DIFF/ PLT) eosinophils 5.6 % normal Not Available [facility] [place] [facility] [address], [place], [address], 01/01/2024 06:27:40 12/28/19 24 01/01/2024 CBC (INCL UDES DIFF/ PLT) basophils 0.7 % normal Not Available [facility] [place] [facility] [address] [place], [address], 01/01/2024 06:27:40 12/28/19 24 01/01/2024 RHEUM ATOID FACTO R rheumatoid factor <10 IU/mL <14 normal Not Available [email or web address] [place] [facility] [address] [place], [address], 01/01/2024 06:27:40 12/28/19 24 01/01/2024 C-TYSHAWN CTIVE PROTE IN C-reactive protein 9.3 mg/L <8.0 high Not Available [email or web address] [address], [place], [address], 01/01/2024 06:27:41 12/28/19 24 01/01/2024 CYCLI C CITRU LLINA CHRISTINA PEPTI DE (CCP) AB (IGG) cyclic citrullinate d peptide (ccp) Ab (IgG) <16 units normal Refer ence Range Negat radhames: <20 Weak Posit radhames: 20-39 Moder ate Posit radhames: 40-59 Stron g Posit radhames: >59 Not Available [email or web address] [place] [facility] [address], [place], [address], 01/01/2024 06:27:41 12/28/19 24 01/01/2024 VITAM IN B12 vitamin B12 416 pg/mL 200-11 00 normal Not Available [email or web address] [place] [facility] [address], [address], 01/01/2024 06:27:42 06/03/20 24 06/03/2024 rapid flu (A+B) Flu A negati ve Not Available [facility] [address] [facility], [place], [address], 06/03/2024 13:50:37 06/03/20 24 06/03/2024 rapid flu (A+B) Flu B negati ve Not Available [facility] [address], [place], [address], 06/03/2024 13:50:37 06/03/20 24 06/03/2024 rapid SARS CoV 2 Ag, QL IA, respi rator y speci men rapid SARS CoV 2 Ag, QL IA, respiratory specimen negati ve Not Available [facility] [address], [place], [address], 06/03/2024 13:50:02 06/03/20 24 06/03/2024 rapid strep group A, throa t Strep negati ve Not Available [facility] [address] [facility], [place], [address], 06/03/2024 13:41:50 06/20/19 25 06/26/2024 HIV 1/2 ANTIG EN/AN TIBOD Y,FOU RTH GENER ATION W/RFL HIV Ag/Ab, 4TH gen NON-RE ACTIVE non-re active normal HIV-1 antig en and HIV-1 /HIV- 2 antib odies were not detec christina. There is no labor atory evide nce of HIV infec tion. PLEAS E NOTE: This infor matio n has been discl osed to you from recor ds whose confi denti ality may be prote cted by state law. If your state requi res such prote ction , then the state law prohi bits you from anita stevenson any furth er discl osure of the infor matio n witho ut the speci fic writt en conse nt of the perso n to whom it perta ins, or as other hernandez permi tted by law. A gener al autho rizat ion for the relea se of medic al or other infor matio n is NOT suffi cient for this purpo se. For addit ional infor matio n pleas e refer to http: //[facility] kaylah martinez stdia gnost ics.c om/fa q/FAQ 106 (This link is being provi ded for infor magalys pretty/ educlakisha peterson l purpo ses only. ) The perfo rmanc e of this assay has not been clini wilder valid ated in patie nts less than 2 years old. Not Available [facility] [place] [facility] [address], [address], 06/26/2024 04:45:49 06/20/19 25 06/26/2024 BV/VA GINIT IS PANEL DNA PROBE trichomonas: NOT DETECT ED not detect ed normal Not Available [email or web address] [place] [facility] [address], [place], [address], 06/26/2024 04:45:50 06/20/19 25 06/26/2024 BV/VA GINIT IS PANEL DNA PROBE gardnerella: DETECT ED not detect ed abnormal Incre ased level s of G. vagin leigh may not be signi fican t in the absen ce of signs and sympt oms of bacte rial vagin osis. Not Available [email or web address] [address], [place], [address], 06/26/2024 04:45:50 06/20/19 25 06/26/2024 BV/VA GINIT IS PANEL DNA PROBE annia: DETECT ED not detect ed abnormal Not Available [facility] [facility] [address], [address], 06/26/2024 04:45:50 06/20/19 25 06/26/2024 HERPE S SIMPL EX VIRUS 1/2 (IGG) TYPE SPECI F AB,CS F hsv 1 IgG index: TNP TEST NOT PERFO RMED No suita ble speci men recei bonita. Pleas e revie w the test requi remen ts at testd irect ory.q uestd iagno stics .com Not Available [facility] [address], [place], [address], 06/26/2024 04:45:50 06/20/1906/26/2024 CHLAM YDIA/ N. GONOR RHOEA E RNA, TMA, UROGE NITAL chlamydia trachomatis RNA, tma, urogenital NOT DETECT ED not detect ed normal Not Available [facility] [facility] [address], [place], [address], 06/26/2024 04:45:51 06/20/1906/26/2024 CHLAM YDIA/ N. GONOR RHOEA E RNA, TMA, UROGE NITAL neisseria gonorrhoeae RNA, tma, urogenital NOT DETECT ED not detect ed normal Not Available [facility] [facility] [address], [place], [address], 06/26/2024 04:45:51 06/20/1906/26/2024 CHLAM YDIA/ N. GONOR RHOEA E RNA, TMA, UROGE NITAL comment The jamel tical perfo rmanc e evangelista cteri stics of this assay , when used to test SureP ath(T M) speci mens have been deter mined by [facility]. The modif icati ons have not been clear ed or appro bonita by the FDA. This assay has been valid ated pursu ant to the CLIA regul ation s and is used for clini negrita purpo ses. For addit ional infor alfonso garcia e refer to https ://ed ucati on.qu estdi Neksts. com/f aq/FA Q154 (This link is being provi ded for infor magalys tapia/ mauro stern purpo ses only. ) Not Available [facility] [place] [facility] [address], [place], [address], 06/26/2024 04:45:51 06/20/1906/26/2024 RPR (DX) W/REF L TITER AND T. PALLI DUM AB, IA RPR (DX) w/refl titer and confirmatory testing NON-RE ACTIVE non-re active normal No labor atory evide nce of syphi lis. If recen t expos ure is suspe cted, submi t a new sampl e in 2-4 weeks . Not Available [facility] [place] [facility] [address], [address], 06/26/2024 04:45:51 06/20/19 25 07/02/2024 HSV 1/2 IGG, W/REF L HSV2 INHIB ITION hsv 1 IgG, type specific Ab 16.40 index high Not Available [facility] [place] [facility] [address], [place], [address], 07/02/2024 22:09:34 06/20/19 25 07/02/2024 HSV 1/2 IGG, W/REF L HSV2 INHIB ITION hsv 2 IgG, type specific Ab <0.90 index normal INDEX INTER PRETA TION ===== ===== ==== ===== ===== ===== ==== <0.90 Negat radhames 0.90 - 1.09 Equiv ocal >1.09 Posit radhames This assay utili zes recom binan t type- speci fic antig ens to diffe renti ate HSV-1 from HSV-2 infec tions . A posit radhames resul t canno t disti nguis h betwe en recen t and past infec tion. If recen t HSV infec tion is suspe cted but the resul ts are negat radhames or equiv ocal, the assay shoul d be repea christina in 4-6 weeks . The perfo rmanc e evangelista cteri stics of the assay have not been estab lishe d for pedia tric popul ation s, immun ocomp romis ed patie nts, or neona vince scree vini. For addit ional infor magalys n, alfonso e refer to http: //joseph Leahyia gnost ics.c om/fa q/FAQ 118 (This link is being provi ded for infor magalys pretty/ mauro rondon ses only) . Not Available [facility] [facility] [address] [place] [address] [address], [place], [address], 07/02/2024 22:09:34 06/20/19 25 06/20/2024 urina lysis , dipst ick Glucose Negati ve Not Available [facility] [address] [facility], [place], [address], 06/20/2024 08:15:44 06/20/19 25 06/20/2024 urina lysis , dipst ick Leukocytes Negati ve Not Available [facility] [address] [facility], [place], [address], 06/20/2024 08:15:44 06/20/19 25 06/20/2024 urina lysis , dipst ick Nitrate Negati ve Not Available [facility] [address] [facility], [place], [address], 06/20/2024 08:15:44 06/20/19 25 06/20/2024 urina lysis , dipst ick Urobilinogen Negati ve Not Available [facility] [address] [facility], [place], [address], 06/20/2024 08:15:44 06/20/1906/20/2024 urina lysis , dipst ick Protein Negati ve Not Available [facility] [address] [facility], [place], [address], 06/20/2024 08:15:44 06/20/1906/20/2024 urina lysis , dipst ick pH 6.[address] [facility] [address] [facility], [place], [address], 06/20/2024 08:15:44 06/20/19 25 06/20/2024 urina lysis , dipst ick Blood Negati ve Not Available [facility] [address] [facility] [address], [place], [address], 06/20/2024 08:15:44 06/20/19 25 06/20/2024 urina lysis , dipst ick Specific [place] 1.025 Not Available [facility] [address] [facility], [place], [address], 06/20/2024 08:15:44 06/20/19 25 06/20/2024 urina lysis , dipst ick Ketone Negati ve Not Available [facility] [address] [facility], [place], [address], 06/20/2024 08:15:44 06/20/19 25 06/20/2024 urina lysis , dipst ick Bilirubin Negati ve Not Available [facility] [address] [facility], [place], [address], 06/20/2024 08:15:44 04/04/20 24 03/07/2023 imagi ng/di agnos tic resul t No observ ation record ed. [email or web address] Not Available 2023 18:53:53 04/04/20 24 03/07/2023 imagi ng/di agnos tic resul t No observ ation record ed. [email or web address] Not Available 2023 18:53:54 04/04/20 24 04/22/2021 imagi ng/di agnos tic resul t No observ ation record ed. [email or web address] Not Available 2023 18:53:54 04/04/20 24 01/01/2021 elect umang monroegr am No observ ation record ed. [email or web address] Not Available 2023 18:54:01 04/04/20 24 03/07/2023 imagi ng/di agnos tic resul t No observ ation record ed. [email or web address] Not Available 2023 18:54:02 04/04/20 24 08/04/2022 anders vieyra am No observ ation record ed. [email or web address] Not Available 2023 18:54:04 04/04/20 24 03/07/2023 imagi ng/di nessaos tic resul t No observ ation record ed. [email or web address] Not Available 2023 18:54:04 Result Notes None recorded. Problems Name Problem SNOMED Code Status Onset Date Resolution Date Notes Provider Name and Address Organization Details Recorded Time Active immunizatio n Active Problem Code: Z23; Problem Code Type: ICD-10; Not Available [facility] 3 03:16:01 Labyrinthit is 78523514 Active Problem Code: H83.01; Problem Code Type: ICD-10; Not Available [facility] 3 03:16:01 Adult health examination Active Problem Code: Z00.00; Problem Code Type: ICD-10; [address] , [place], [address] , [employer] [facility] 4 16:17:43 Body mass index 30+ - obesity 609510666 Active Problem Code: Z68.30; Problem Code Type: ICD-10; Not Available [facility] 3 03:16:01 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 Problem Code: E78.5; Problem Code Type: ICD-10; [address], [place], [address] , [employer] [facility] 4 16:17:43 Chronic cough 04864991 Active Problem Code: R05.3; Problem Code Type: ICD-10; Not Available [facility] 3 03:16:02 Gastroesoph ageal reflux disease without esophagitis 182515495 Active Problem Code: K21.9; Problem Code Type: ICD-10; [address], [place], [address] , [employer] [facility] 4 16:17:43 Dizziness and giddiness 343544537 Active Problem Code: R42; Problem Code Type: ICD-10; Not Available [facility] 3 03:16:02 Migraine with aura 1427570 Active Problem Code: G43.109; Problem Code Type: ICD-10; Steven Drew APRN [address] [facility], [place], [address] , [facility] 4 16:17:43 Vitamin D deficiency 87255234 Active Problem Code: E55.9; Problem Code Type: ICD-10; Steven Drew APRN [address] [facility], [place], [address] , [facility] 4 16:17:43 Anxiety disorder 367645384 Active Problem Code: F41.9; Problem Code Type: ICD-10; Not Available [facility] 3 03:16:02 Constipatio n 15130550 Active Problem Code: K59.00; Problem Code Type: ICD-10; Steven Drew APRN [address] [facility], [place], [address] , [facility] 4 16:17:43 Acute sinusitis 70494258 Active Problem Code: J01.90; Problem Code Type: ICD-10; Not Available [facility] 3 03:16:02 Bronchitis 41709748 Active Problem Code: J40; Problem Code Type: ICD-10; Not Available [facility] 3 03:16:03 Gynecologic examination Active Problem Code: Z01.419; Problem Code Type: ICD-10; Not Available [facility] 3 03:16:03 Disorder of skin appendage 979541077 Active Problem Code: L73.9; Problem Code Type: ICD-10; Not Available [facility] 3 03:16:03 Headache 70144318 Active Problem Code: R51.9; Problem Code Type: ICD-10; Steven Drew APRN [address] [facility], [place], [address] , [facility] 4 16:17:43 Viral disease 33763463 Active Problem Code: B34.9; Problem Code Type: ICD-10; Not Available [facility] 3 03:16:03 Chest pain 14030998 Active Problem Code: R07.89; Problem Code Type: ICD-10; Not Available [facility] 3 03:16:03 Erythrocyte sedimentati on rate above reference range 225581323 Active Problem Code: R70.0; Problem Code Type: ICD-10; Not Available [facility] 3 03:16:03 Nicotine dependence 87923812 Active Problem Code: F17.290; Problem Code Type: ICD-10; Steven Drew APRN [address], [place], [address] , [employer] 4 16:17:43 Maxillary sinusitis 28233452 Active 2023 Steven Drew APRN [address], [place], [address] , [employer] 4 16:28:42 Polymyalgia rheumatica 14418735 Active 2023 Steven Drew APRN [address] [facility], [place], [address] , [employer] 4 09:39:33 Vaginal mass 933361809 Active 2023 Steven Drew APRN [address], [place], [address] , [employer] 4 14:43:59 Left lower quadrant pain 944409684 Active 2023 Steven Drew APRN [address], [place], [address] , [employer] 4 14:45:03 Pruritus of vagina 46517768 Active 2024 Bree britton, [employer] 5 08:15:34 Problem Notes None recorded. Procedures Surgical History Date Name Laterality Status Provider Name and Address Organization Details Recorded Time 2023 [id number] completed [address], [place], [address] , [place] [employer] 4 09:24:44 2023 EGFPMammogramReport Z1231 completed Steven Drew APRN [address], [place], [address] , [place] [employer] 4 09:24:53 2023 EGFPCervicalCancerScreen Z124 completed [address], [place], [address] , [place] [employer] 4 09:25:12 2022 Most Recent Mammogram completed [address], [place], [address] , [place] [employer] 4 08:37:03 2020 Date of Last Pap Smear completed [address], [place], [address] , [place] [facility] 4 08:36:42 2018 colonoscopy completed [address], [place], [address] , [place] [facility] 4 08:36:29 Imaging Results Imaging Date Name Status LastModified by Organization Details LastModified Time 03/07/2023 imaging/diagnostic result completed Information not available 04/04/2024 18:53:53 03/07/2023 imaging/diagnostic result completed Information not available 04/04/2024 18:53:54 04/22/2021 imaging/diagnostic result completed Information not available 04/04/2024 18:53:54 01/01/2021 electrocardiogram completed Informa tion not available 04/04/2024 18:54:01 03/07/2023 imaging/diagnostic result completed Information not available 04/04/2024 18:54:02 08/04/2022 electrocardiogram completed Informa tion not available 04/04/2024 18:54:04 03/07/2023 imaging/diagnostic result completed Information not available 04/04/2024 18:54:04 Procedure Notes None recorded. Medical Equipment None Reported. Allergies Allergen ID Allergen Name Allergen Category Reaction Reaction Severity Criticality Documentation Date Start Date Code Code System Note Provider Name and Address Organization Details Recorded Time chocolate flavor food,medi cation hives Not available Not available 02/24/20232018 70434 UNK Not Available [facility] 3 01:53:07 77294 Motrin medicatio n Not available Not available Not available 12/28/202367088 8 RxNorm ulcer Hugo Henderson [facility] 4 09:24:24 Medications Name Sig Start Date Stop Date Status Note LastModified by Organization Details LastModified Time Augmentin 875 mg-125 mg tablet take 1 tablet by oral route every 12 hours 11/09 completed Not Available Not Available Not Available prednisone 10 mg tablet TAKE 1 TABLET BY MOUTH EVERY DAY active Not Available Not Available No t Available azithromyci n 250 mg tablet TAKE 2 TABLETS BY MOUTH TODAY, THEN TAKE 1 TABLET DAILY FOR 4 DAYS DIRECTED 08/29 completed Not Available Not Available Not Available metronidazo le 0.75 % (37.5 mg/5 gram) vaginal gel Insert 1 applicato rful every day by vaginal route at bedtime for 5 days. 2024 active Not Available Not Available Not Avai lable rizatriptan 10 mg tablet take 1 tablet (10 mg) by oral route once, may repeat at 2 hour intervals ; do not exceed 30 mg in 24 hours 07/30 completed Not Available Not Available Not Available Excedrin Migraine 250 mg-250 mg-65 mg tablet Take 1-2 Tablet ORAL 4 times a day for 10 days. 02/25 completed Not Available Not Available Not Available Diflucan 150 mg tablet Take 1 tablet every 72 hours by oral route as needed. 2024 active Not Available Not Available Not Avai lable meclizine 12.5 mg tablet take 1 tablets (25 mg) by oral route every 6 Hr prn dizziness 07/30 completed Not Available Not Available Not Available omeprazole 40 mg capsule,del ayed release TAKE 1 CAPSULE BY MOUTH EVERY DAY BEFORE A MEAL 06/28 completed Not Available Not Available Not Available Nicoderm CQ 7 mg/24 hr daily transdermal patch Take APPLY Patch 24HR Transderm al once each day. 07/08 completed Not Available Not Available Not Available amoxicillin 875 mg tablet take 1 tablet (875 mg) by oral route every 12 hours 06/20 completed Not Available Not Available Not Available [...] Available Not Available Lexapro 10 mg tablet take 1 tablet (10 mg) by oral route once daily 01/08 completed Not Available Not Available Not Available Excedrin Migraine active Not Available Not Available Not Available Vitamin D3 active Not Available Not Av ailable Not Available Asmanex Twisthaler 110 mcg/actuati on(30 [...] Not Available Not Available Not Available meclizine HCl (bulk) Take 1 PO ? every 8 hours for 10 days. 10/30 completed Medic ation Name: 'MECL IZINE HCL'; Not Available Not Available Not Available [facility] ODT 75 mg disintegrat ing tablet PLACE 1 TAB ON TOP OF TONGUE,AL LOW TO DISSOLVE THEN SWALLOW ONCE NEEDED MIGRAINE- MAX 1 DOSE/DAY 11/11 completed Not Available Not Available Not Available [employer] COVID-19 Antigen Home Test kit 06/28 completed Not Available Not Available Not Available Vitals Date Recorded Body height Body mass index (BMI) Body weight Oxygen saturation Oxygen saturation in Arterial blood by Pulse oximetry Heart rate Systolic blood pressure Diastolic blood pressure Provider Name and Address Organization Details Last Updated DateTime 4 155.702 cm 30.3 kg/m2 02847.9 6 g 98 % 98 % 88 /min 100 mm[Hg] 72 mm[Hg] Hugo Henderson [facility] 4 09:26:48 Date Recorded Body height Body mass index (BMI) Body weight Oxygen saturation Oxygen saturation in Arterial blood by Pulse oximetry Heart rate Systolic blood pressure Diastolic blood pressure Provider Name and Address Organization Details Last Updated DateTime 4 155.702 cm 31.5 kg/m2 80353.2 2 g 98 % 98 % 85 /min 108 mm[Hg] 72 mm[Hg] Coral Banner [facility] 4 14:13:03 Date Recorded Body height Body temperature Oxygen saturation Oxygen saturation in Arterial blood by Pulse oximetry Heart rate Systolic blood pressure Diastolic blood pressure Provider Name and Address Organization Details Last Updated DateTime 4 155.702 cm 96.5 [degF] 95 % 95 % 80 /min 100 mm[Hg] 70 mm[Hg] Coral Villa [facility] 4 13:27:25 Date Recorded Body height Body mass index (BMI) Body weight Oxygen saturation Oxygen saturation in Arterial blood by Pulse oximetry Heart rate Body temperature Systolic blood pressure Diastolic blood pressure Provider Name and Address Organization Details Last Updated DateTime 5 155.702 cm 30.7 kg/m2 43653.1 5 g 96 % 96 % 63 /min 98.5 [degF] 114 mm[Hg] 81 mm[Hg] Bree Verdugo [facility] 5 08:11:26 Social History Question Answer Notes LastModified by Organization Details LastModified Time Tobacco Smoking Status Former Smoker Not Available [facility] 03/06/2023 12:22:01 Do You Have An Advance Directive? No Information not available 08/30/2023 What Is Your Advocate's Name? Rey Chamberlain Information not available 08/30/2023 What Is Your Relation To The Advocate? Information not available 08/30/2023 What Is Your Level Of Alcohol Consumption? Occasional Information not available 08/30/2023 How Many Times Per Week Do You Consume Alcohol? Less Than 1 Time Per Week SocialHis toryQuest ion: 'Alcohol' ; SocialHis toryRespo nse: '1'; satinder Information not available 03/06/2023 Do You Wear A Helmet When Biking? No Information not available 08/30/2023 Are You Blind Or Do You Have Difficulty Seeing? No Wear Glasses Information not available 08/30/2023 Is Blood Transfusion Acceptable In An Emergency? Yes Information not available 08/30/2023 Are You Currently Employed? Yes Information not available 08/30/2023 Are You Deaf Or Do You Have Serious Difficulty Hearing? No Information not available 08/30/2023 What Type Of Diet Are You Following? REGULAR Low Sodium Information not available 08/30/2023 What Is The Highest Grade Or Level Of School You Have Completed Or The Highest Degree You Have Received? 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 Yes Information not available 08/30/2023 What Is The Fluoride Status Of Your Home? Unknown Information not available 08/30/2023 When Did You Quit Smoking? 1-5yearssincelastcigare tte 2019 Information not available 08/30/2023 Are There Any Guns Present In Your Home? No Information not available 08/30/2023 Which Of Your Hands Is Dominant? Right Information not available 08/30/2023 Where Do You Live? Apartment Information not available 08/30/2023 What Was The Date Of Your Most Recent Tobacco Screening? 08/30/2023 Information not available 08/30/2023 How Many Children Do You Have? 4 Information not available 08/30/2023 Do You Have A Patient Advocate? Yes Information not available 08/30/2023 Do You Have Any Pets? No Information not available 08/30/2023 What Is Your Relationship Status? Information not available 08/30/2023 Do You Use Your Seat Belt Or Car Seat Routinely? Yes Information not available 08/30/2023 Are You Sexually Active? No Information not available 08/30/2023 Do You Have Any Siblings? Yes Information not available 08/30/2023 Do You Have Smoke And Carbon Monoxide Detectors In Your Home? No No Carbon Monoxide Information not available 08/30/2023 At What Age Did You Start Smoking Tobacco? 16 Information not available 08/30/2023 Are There Any Smokers In Your House? No Information not available 08/30/2023 How Much Tobacco Do You Smoke? 0.5 PPD Information not available 08/30/2023 Do You Participate In Social Media? No Information not available 08/30/2023 What Types Of Sporting Activities Do You Participate In? No Information not available 08/30/2023 Do You Feel Stressed (tense, Restless, Nervous, Or Anxious, Or Unable To Sleep At Night)? [id number] Information not available 08/30/2023 Do You Use Any Illicit Or Recreational Drugs? No [email or web address] Information not available 03/06/2023 Do You Use Sunscreen Routinely? Yes Information not available 08/30/2023 How Many Years Have You Smoked Tobacco? 30 Information not available 08/30/2023 What Type Of Noise Exposure Are You Exposed To? NoExposureToExcessiveNo ise Information not available 08/30/2023 Are You Currently In School? No Information not available 08/30/2023 What Contraceptive Method Was Reported At Start Of This Visit? None Information not available 08/30/2023 Do You Or Have You Ever Used Any Other Forms Of Tobacco Or Nicotine? No Information not available 08/30/2023 Sex: Unknown Functional Status Question Answer Note LastModified by Organization D etails LastModified Time What is your exercise level? Moderate Information not available 08/30/2023 Mental Status Question Answer Note LastModified by Organization D etails LastModified Time Do you have difficulty concentrating, remembering or making decisions? Yes Information no t available 08/30/2023 Family History Nothing Reported Notes:*Relative: Unspecified Relation *Problem: . : 08:01am .T: .T: Family History: Father : Alive [place], cabg x 3 Mother : alive, hx htn hld Paternal Grandfather: no information given Paternal Grandmother: arthritis and colon cancer Maternal Grandfather: no information given Maternal Grandmother: no information given maternal aunt- DM sister-anxiety Hypertension: yes Hyperlipidemia: yes Coronary heart disease: yes Stroke or other vascular disease: no Diabetes mellitus: yes Osteoporosis: no Breast cancer: no Ovarian cancer: no Colorectal cancer: yes Lung cancer: no Prostate cancer: no Skin cancer: no Alzheimer's: no Alcoholism: no Mental illness: yes Medical History No medical history recorded. Gynecological History Statement/Question Response Abnormal Pap N Date of Last Pap Smear 09/17/2020 Most Recent Mammogram 08/11/2022 Obstetrics History GPAL:G 0 P 0 0 0 0 Immunizations Vaccine Type Date Status Note Provider Nam e and Address Organization Details Recorded Time Hep B, unspecified formulation 1 completed Not Available [facility] 03/27/2023 07:11:54 Tdap 8 completed Not Available [facility] 03/27/2023 07:11:54 TST-PPD intradermal 0 completed Not Available [facility] 03/27/2023 07:11:54 Hep B, unspecified formulation 0 completed Not Available [facility] 03/27/2023 07:11:55 Influenza, split virus, quadrivalent, PF 2 completed Steven Drew APRN [address], [place], [address], [employer] 08/30/2023 08:35:55 Hep B, unspecified formulation 0 completed Not Available [facility] 03/27/2023 07:11:55 Influenza, split virus, quadrivalent, PF 1 completed Not Available [facility] 03/27/2023 07:11:56 zoster recombinant 3 completed Not Available [facility] 03/27/2023 07:11:56 zoster recombinant 2 completed Not Available [facility] 03/27/2023 07:11:56 COVID-19, mRNA, LNP-S, PF, 30 mcg/0.3 mL dose 1 completed Steven Drew APRN [address], [place], [address], [facility] 08/30/2023 08:35:55 COVID-19, mRNA, LNP-S, PF, 30 mcg/0.3 mL dose 1 completed Steven Drew APRN [address] [facility], [place], [address], [facility] 08/30/2023 08:35:55 COVID-19, mRNA, LNP-S, PF, 30 mcg/0.3 mL dose 1 completed Steven Drew APRN [address] [place], [address], [facility] 08/30/2023 08:35:55 COVID-19, mRNA, LNP-S, PF, 30 mcg/0.3 mL dose, say-sucrose 2 completed Steven Drew APRN [address] [place] [address], [address], [facility] 08/30/2023 08:35:55 Past Encounters Encounter ID Performer Location Encounter Start Date Encounter Closed Date Diagnosis/Indication Diagnosis SNOMED-CT Code Diagnosis ICD10 Code Diagnosis Note [id number] Carina Overton APRN [address] [address] 03/31/2023 09:24:49 04/04/2023 21:59:41 Streptococcal sore throat 85676353 J02.0 Will treat with Amoxicilli n. Advised to avoid NSAIDs due to possible ulcer, but can use Tylenol. Also continue with increased fluid intake. Try warm salt water gargles, humidified air, and tea with honey. Stay away from others or use a mask for a few days, wash hands often, and clean frequently touched surfaces often. Acute sinusitis 63105111 J01.90 Will treat with Amoxicilli n. Restart Flonase daily for at least 1-2 weeks. Can use Tylenol and saline spray. She will call us if symptoms worsen or don't start to improve in 48-72 hours. [id number] Steven Drew APRN [address] [address] 06/28/2023 15:47:04 06/28/2023 16:30:48 Maxillary sinusitis 57601656 J32.0 Patient with right maxillary sinusitis. Advised to increase Flonase to twice a day. Does not do well with Augmentin so we will see how she does with a Z-Jesse which she has done well within the past and has tended to have less GI side effects than other antibiotic s that she has tried. Saline nasal rinses encouraged . If no improvemen t with antibiotic s, Flonase, saline nasal rinses would consider oral steroid and ENT referral as patient has been having recurrent sinusitis over the last 6 months. Patient is in agreement with the plan. [id number] Steven Drew [facility] [address] [place] [address] 08/30/2023 07:56:29 08/30/2023 09:36:09 Adult health examination 196190896 Z00.00 I have reviewed, and updated patient's past medical, surgical, family, and social historyMos t recent dental eye and specialist examsCouns eled about the following: -healthy lifestyle- stress management -exercise 100-150min /week-Limi ting alcohol intake-Dys lipidemia screening and other routine labs tested today-Cerv ical cancer screening- Patient encouraged to use lubricant for sexual intercours e and discussed to help with lower amounts of estrogen in her body vaginal dryness is common.-Ma mmogram-Co mendez cancer screening- Age appropriat e immunizati ons Gastroesop hageal reflux disease without esophagitis 018312423 K21.9 Rare use of Tums. Screening for malignant neoplasm of colon 465552094 Z12.11 Will send referral to GI Screening mammography 24 846796 Z12.31 Migraine with aura 13818 06 G43.109 Rare use of Excedrin Vitamin D deficiency 347 54931 E55.9 Not currently supplement ing. Will check level. Patient encouraged to get back on vitamin D supplement ation. [id number] Steven Drew [employer] [facility] [address] [place] [address] 10/19/2023 10:49:23 10/19/2023 11:01:17 [id number] Steven Drew [facility] [address] [place] [address] 12/28/2023 09:18:23 12/28/2023 10:06:25 Polymyalgia rheumatica 88613786 M35.3 Clinically patient symptoms are consistent with polymyalgi a rheumatica . Check labs and if elevated CRP/ESR will refer to yuan erickson. Certainly if any other rheumatolo gical concerns come up in the lab work we will address those as well. Likely she will get a referral to rheumattaylor erickson after blood work. Start patient on prednisone taper. Side effect profile and dosing of prednisone discussed with patient. Patient aware I will call her once I have full lab panel results. [id number] Steven Drew APRN [facility] [address] [place] [address] 01/11/2024 14:03:40 01/11/2024 14:52:02 Polymyalgia rheumatica 25632293 M35.3 I will continue patient on prednisone 10 mg once daily until she gets into see a rheumattaylor miranda. Vaginal mass 713492906 N 89.8 Patient presents today with a tender vaginal mass at the opening of her vagina. Will refer to gynecology for further treatment Left lower quadrant pain 347169771 R10.32 Patient presents today with 4 days of left lower quadrant pain. Differenti al diagnoses include diverticul itis, possible history with left ovary/uter us, kidney stone. Will order CT abdomen/pe lvis. Patient left prior to this office obtaining urine for urinalysis . Recent labs from 2 weeks ago? no issues with CBC, CMP. Doubt infectious origin since patient has no systemic symptoms. Given patient's concurrent symptoms of left lower quadrant pain with vaginal issue need to rule out any fibroids, malignancy , prolapse. [id number] Leon Dillon MD [facility] [address] [place] [address] 06/03/2024 13:14:06 06/03/2024 14:04:02 Bacterial sinusitis 387674165 J32.9 B96.89 [id number] COLT REYNOLDS DO [facility] [address] [place] [address] 06/20/2024 07:53:50 06/20/2024 08:57:05 Pruritus of vagina 04506008 N89.8 Ashanti Chamberlain Comes in today for vaginal itching Which occurred after starting antibiotic s, partaking in unprotecte d sex. Differenti al diagnosis is broad including Annia, BV, STD, UTI. Urinalysis is normal. Will send off affirm probe, STD testing. She did have some mild left lower quadrant pain, admits to chronic patient. Recommende d on hydration, stool softener will await results prior to initiation of treatment as differenti al diagnosis includes 3 different treatment plans. She is aware and agrees with this plan. Will call if symptoms acutely worsen prior to results.RT C as needed Health Concerns Section Related Observation LastModified by Organization Detai ls LastModified Time None Recorded Concern Status LastModified by Organization Details LastModified Time None Recorded Advance Directives Directive N: Payers Encounter Date Sequence Insurance Name Policy Number Policy Fitzpatrick Covered Member ID Fitzpatrick Member ID Guarantor Name 12/28/2023 1 [place] [id number] Rey V Chamberlain [id number] Ashanti Chamberlain 01/11/2024 1 [place] [id number] Rey V Chamberlain [id number] Ashanti Chamberlain 06/03/2024 1 [place] [id number] Rey V Chamberlain [id number] 98 Ashanti Chamberlain 06/20/2024 1 [place] [id number] Rey V Chamberlain [id number] 98 Ashanti Chamberlain Notes Date Note Type Note Provider Name and Address Organization Details Recorded Time 12/28/2023 text/html This is a 53-year-old female presents today with complaint of bilateral arm pain. Patient states that her left arm started hurting several months ago and for the last few weeks the pain is also started in her right upper arm. The pain is described as an achy feeling in her muscles, left arm is throughout the entire arm into the wrist and again the right arm is just the upper arm. She denies any injury or trauma. She has had no joint swelling or joint pain. Nothing seems to make the pain better or worse? she has an allergy to Motrin but has tried Excedrin without any relief of her symptoms. The pain is keeping her up at night. In addition to the arm pain her right hip has been acting up as well. She has mild fatigue. She has no rashes, denies tick bites or recent illness. She denies chest pain, palpitations, shortness of breath, shortness of breath with exertion. Steven Drew, PROFESSIONAL HOUSING CONSULTANT [address] [facility], [place], [id number], [facility] 12/28/2023 09:46:06 06/03/2024 text/html Patient had cold symptoms 2 weeks ago got better but the last 2 days has sinus pressure pain yellow blood-streaked nasal discharge scratchy throat cough productive of yellow sputum. Has had low-grade fever. Leon Dillon MD [address] [facility], [place], [id number], [facility] 06/03/2024 14:02:17 06/20/2024 text/html Ashanti Chamberlain [facility] es in today for . She is having abdominal cramping, vaginal itching/ burning on the L side. The burning is in the middle of the vaginal area. She has not noted any sores. She does have a sore from recent waxing. She has some clear odorless discharge. There is no burning with urination, no urinary frequency. She has no fevers, chills. The cramping is in the lower abdomen 2-3/10. She has chronic lower back pain, no pain out of the normal.SHe is currently going through menopause, just had her period, prior had been 11 months.She had unprotected sex w/ boygriend. She is concern for STD. COLT REYNOLDS DO [address] [facility] [address], [place], [id number], [facility] 06/20/2024 09:20:50 OBGyn Episode No OBEpisode recorded.
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
[2024-08-12] MEDS: methocarbamoL 750 MG TABLET PO (00:36)
[2024-08-12 00:46] VITALS: BP 139/86; PULSE 107; RESP 16; TEMP 36.7; O2SAT 97
== END 2024-08-12 00:47 | disposition home or self-care (01) ==
PROVIDERS: Emergency Provider Emergency Medicine; PCP Nurse Practitioner Adult Health
DX: S13.4XXA Sprain of ligaments of cervical spine, initial encounter (principal); S09.90XA Unspecified injury of head, initial encounter; R51.9 Headache, unspecified; M54.2 Cervicalgia; V43.52XA Car driver injured in collision with other type car in traffic accident, initial encounter; Y93.9 Activity, unspecified; Y92.410 Unspecified street and highway as the place of occurrence of the external cause; Y99.8 Other external cause status
CPT/HCPCS: 70450; 72125; 99284

== ENCOUNTER → 2024-08-11 22:49 | Outpatient (BNV) | payer SELFPAY | PROVIDERS: Emergency Provider Emergency Medicine; PCP Nurse Practitioner Adult Health; Visit Provider Radiology Neuroradiology | DX: M54.2 Cervicalgia (principal); R51.9 Headache, unspecified; H53.8 Other visual disturbances | CPT/HCPCS: 70450; 72125 ==

== ENCOUNTER 2025-01-24 21:24 | Emergency (ER) | payer SELFPAY ==
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
[2025-01-24 21:28] VITALS: BP 116/71; PULSE 66; RESP 18; TEMP 36.7; O2SAT 99; BMI 27.4
[2025-01-25 00:32] VITALS: BP 114/65; PULSE 60; RESP 19; TEMP 36.6; O2SAT 100
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
[2025-01-25 03:52] VITALS: BP 112/65; PULSE 64; RESP 13; TEMP 36.7; O2SAT 97
[2025-01-25 04:04] VITALS: BP 112/65; PULSE 64; RESP 13; TEMP 36.7; O2SAT 97
== END 2025-01-25 04:04 | disposition home or self-care (01) ==
PROVIDERS: Emergency Provider Emergency Medicine
DX: S06.0X0A Concussion without loss of consciousness, initial encounter (principal); Y04.2XXA Assault by strike against or bumped into by another person, initial encounter; Y93.9 Activity, unspecified; Y92.9 Unspecified place or not applicable; Y99.0 Civilian activity done for income or pay
CPT/HCPCS: 70450; 99284

== ENCOUNTER → 2025-01-25 01:23 | Outpatient (BNV) | payer SELFPAY | PROVIDERS: Emergency Provider Emergency Medicine; Visit Provider General Practice | DX: R42 Dizziness and giddiness (principal) | CPT/HCPCS: 70450 ==

== ENCOUNTER 2025-03-29 23:29 | Emergency (ER) | payer SELFPAY ==
[2025-03-29 23:31] VITALS: BP 129/59; PULSE 88; RESP 16; TEMP 36.4; O2SAT 100; BMI 28.3
--- OUTSIDE RECORDS SUMMARY | 2025-03-30 00:19 | XMS_ITS | Clinical Summary ---
Author Organization [employer] [facility] Address [address] [place] [address] Care Team Providers Care Industrial Production Manager Name Role Phone Luda Drew APRN Primary Care Provider [phone] Allergies No known active allergies Medications Medication [...] 94 10/22/2020 4:24 PM EDT Temperature 37.2 C (98.9 F) 10/22/2020 4:24 PM EDT Respiratory Rate 18 10/22/2020 4:24 PM EDT [...] (2 of 2 - PCV) 12/12/2018 12/12/2017 Breast Cancer Screening (Mammogram) 08/11/2024 08/11/2022 COVID-19 Vaccine ( season) 2025 11/28/2021, 06/03/2021, 10/15/2020, Additional history exists Influenza Vaccine (#1) 2025 05/24/2022, 2020 DTap / Tdap / Td (2 - Td or Tdap) 12/13/2027 12/12/2017 Hepatitis B Vaccines Completed 08/25/2020, 02/25/2020, 01/23/2020 Shingrix-Zoster Vaccine Completed 08/04/2022, 07/30 RSV Ped < 20 months Aged Out No longe r eligible based on patient's age to complete this topic Advance Directives For more information, please contact: [phone] Documents on File Type Date Recorded Patient Yoga Instructor Expl anation Advance Directive and Living Will 01/18/2018 7:31 PM Care Teams Industrial Production Manager Relationship Specialty Start Date End Date Luda Drew APRN [address] [facility] [address] [facility] [place] [address] PCP - General Family Medicine 09/24/20
--- OUTSIDE RECORDS SUMMARY | 2025-03-30 00:19 | XMS_ITS | Encounter Summary ---
Author Organization [facility] Address [address] [place] [id number] Care Team Providers Care Integration Software Developer Name Role Phone Lee Stallings MD Primary Care Provider [phone] Pcp, No Primary Care Provider Unavailabl e Encounter Details Date Type Department Care Team (Late st Contact Info) Description 10/12/2017 Scanned Document [address] [id number] Provider, Generic Social History Tobacco Use Types Packs/Day Years Used Date Smoking Tobacco: Never Assessed Comments Unknown Sex and Gender Information Value Date Recorded Sex Assigned at Not on file Legal Sex Female 3:33 PM EDT Gender Identity Not on file Sexual Orientation Not on file documented as of this encounter Plan of Treatment Not on file documented as of this encounter Procedures Procedure Name Priority Date/Time Associated Diagnosis Comments LAB RESULT 10/12/2017 documented in this encounter Results * LAB RESULT (10/12/2017) Narrative 10/12/2017 Ordered by an unspecified provider. us Generic Provider HX AMB PROCEDURES Edited Result - Final documented in this encounter Visit Diagnoses Not on filedocumented in this encounter Care Teams Integration Software Developer Relationship Specialty Start Date End Date Lee Stallings MD PCP - General Internal Medicine 11/27/17 01/17/19 Pcp, No PCP - General General Medicine 01/18/19 documented as of this encounter
--- OUTSIDE RECORDS SUMMARY | 2025-03-30 00:19 | XMS_ITS | Clinical Summary ---
Author Organization [facility] Address [address] [place] [address] Care Team Providers Care Die Cleaner Name Role Phone Viktoriya Carrasco MD Primary Care Provider [phone] Allergies Active Allergy Reactions Criticality Noted Date [...] of 2) 2018 COVID-19 Vaccine ( - 2024-2 6 season) 2025 Influenza (#1) 2025 HPV Vaccine (No Doses Required) Completed Hep A Aged Out No longer eligi ble based on patient's age to complete this topic Hib Aged Out No longer eligi ble based on patient's age to complete this topic Meningococcal ACWY Aged Out No longer eligible based on patient's age to complete this topic Care Teams Die Cleaner Relationship Specialty Start Date End Date Viktoriya Carrasco MD [address] [place] [address] PCP - General 01/23/23
--- OUTSIDE RECORDS SUMMARY | 2025-03-30 00:19 | XMS_ITS | Clinical Summary ---
Author Organization [facility] Address [address] [place] [address] Phone Care Team Providers Care Mail Clerk Bills Name Role Phone Luda Drew NP Primary Care Provider [phone] Allergies Active Allergy Reactions Criticality Noted Date Comments Chocolate 01/27/2025 Ibuprofen GI intolerance 10/31/2024 Medications aspirin-acetami nophen-caffeine (Excedrin Migraine) 250-250-65 mg per tablet Take 1 tablet by mouth 1 (one) time each day. Active oxyCODONE (OXY-IR) 5 mg immediate release capsule Take 1 capsule (5 mg total) by mouth every 6 (six) hours if needed for severe pain or moderate pain. Max Daily Amount: 20 mg 10 capsule 10/31/2024 Active Encounters Date Type Department Care Team Description 01/27/2025 7:47 PM EDT - 01/27/2025 11:22 PM EDT Emergency [facility] Emergency [address] [place] [phone] Sunil Escobar MD DUB (dysfunctional uterine bleeding) (Primary Dx) Discharge Disposition: Home or Self Care from Last 3 Months Immunizations Immunization Administration Dates Next Due Pfizer (ages 12 [...] = 0.6 oz pur e alcohol) Comments No Sex and Gender Information Value Date Recorded Sex Assigned at Female 10/31/2024 1:23 AM EDT Legal Sex Female 2:16 PM EST Gender Identity Female 10/31/2024 1:23 AM EDT Sexual Orientation Straight 10/31/2024 1: 23 AM EDT Obstetrics History Last Filed Vital Signs Vital Sign Reading Time Taken Comments Blood Pressure 128/78 01/27/2025 10:41 PM EDT Pulse 71 01/27/2025 10:41 PM EDT Temperature 36.4 C (97.6 F) 01/27/2025 10:41 PM EDT Respiratory Rate 18 01/27/2025 10:41 PM EDT Oxygen Saturation 96% 01/27/2025 10:41 PM EDT Inhaled Oxygen Concentration - - Weight 65.3 kg (144 lb) 01/27/2025 7:45 PM EDT Height 154.9 cm (5' 1 ) 01/27/2025 7:45 PM EDT Body Mass Index 27.21 01/27/2025 7:45 PM EDT Plan of Treatment Health Maintenance Due Date Last Done Comments Colorectal Cancer Screening: Colonoscopy 1968 Cervical Cancer Screening: Pap Smear 1989 Pneumococcal Vaccine: 50+ Years (2 of 2 - PCV) 12/12/2018 12/12/2017 Cholesterol Screening (Lipid Panel) 05/18/2022 Social Influencers of Health Screening 05/18/2022 Depression Screening 06/19/2024 Breast Cancer Screening 08/11/2024 08/11/2022 COVID-19 Vaccine ( season) 2025 11/28/2021, 06/03/2021, 10/15/2020, Additional history exists Influenza Vaccine (#1) 2025 05/24/2022, 2020 DTaP,Tdap,and Td Vaccines (2 - Td or Tdap) 12/13/2027 12/12/2017 RSV Immunization Adult Patients (1 - 1-dose 75+ series) 2043 Hepatitis B Vaccines Completed 08/25/2020, 02/25/2020, 01/23/2020 Zoster Vaccines Completed 08/04/2022, 07/30/2021 HIV Screening Completed 01/27/2025 Hepatitis C Screening Completed 01/27/2025 HIB Vaccines Aged Out No longer eligi [...] age to complete this topic Meningococcal B Vaccine Aged Out No l onger eligible based on patient's age to complete this topic RSV Immunization Patients Under 20 months Aged Out No longer eligible based on patient's age to complete this topic Varicella Vaccines Aged Out No longer eligible based on patient's age to complete this topic Procedures Procedure Name Priority Date/Time Associated Diagnosis Comments HEPATITIS PANEL, ACUTE STAT 11:19 PM EDT HIV 1, 2 ANTIBODY, P24 ANTIGEN WITH REFLEX TO DIFFERENTIATION STAT 01/27/2025 11:19 PM EDT RAPID PLASMA REAGIN WITH REFLEX TO TITER AND TREPONEMA PALLIDUM ANTIBODY STAT 01/27/2025 11:19 PM EDT CHLAMYDIA TRACHOMATIS AND NEISSERIA GONORRHOEAE PCR STAT 01/27/2025 11:19 PM EDT ..URINALYSIS MICROSCOPIC REFLEX URINE CULTURE STAT 01/27/2025 8:37 PM EDT URINALYSIS WITH REFLEX MICROSCOPIC AND CULTURE STAT 01/27/2025 8:37 PM EDT CBC WITH AUTO DIFFERENTIAL STAT 01/27/2025 8:37 PM EDT URINALYSIS WITH REFLEX MICROSCOPIC AND CULTURE STAT 01/27/2025 8:37 PM EDT LIPASE STAT 01/27/2025 8:37 PM EDT COMPREHENSIVE METABOLIC PANEL STAT 01/27/2025 8:37 PM EDT CBC AND DIFFERENTIAL STAT 01/27/2025 8:37 PM EDT CULTURE URINE STAT 01/27/2025 8:37 PM EDT MAMMOGRAM SCREENING BILATERAL 3D PATI WITH CAD Routine 08/11/2022 3:59 PM EST Encounter for screening mammogram for malignant neoplasm of breast from Last 3 Months or Most Recently Relevant to Health Maintenance Results * HIV 1,2 antibody, p24 antigen with reflex to differentiation (01/27/2025 11:19 PM EDT) Pathologist [facility] HIV Combo AB/AG Negative Negative LAB CHEMISTRY METHOD 01/28/2025 1:17 PM EDT [facility] Blood Venous blood specimen / Unknown Venipuncture / Unknown 01/27/2025 11:19 PM EDT 01/27/2025 11:23 PM EDT Narrative [facility] - 01/28/2025 1:17 PM EDT Nonreactive result does not rule out HIV infection. us Sunil Escobar MD LAB BLOOD ORDERABLES Final Res ult [facility] [address] [place] [address], [place] [phone] * Rapid plasma reagin with reflex to titer and treponema pallidum antibody (01/27/2025 11:19 PM EDT) RPR Nonreactive Nonreactive 01/28/2025 12:42 PM EDT [facility] Blood Venous blood specimen / Unknown Venipuncture / Unknown 01/27/2025 11:19 PM EDT 01/27/2025 11:23 PM EDT us Sunil Escobar MD LAB BLOOD ORDERABLES Final Res ult [facility] [address] [place] [address], [place] [phone] * Hepatitis panel, acute (01/27/2025 11:19 PM EDT) Hepatitis B Surface Ag Negative Negative LAB CHEMISTRY METHOD 01/28/2025 1:17 PM EDT [facility] Hepatitis A Antibody IgM Negative Negative LAB CHEMISTRY METHOD 01/28/2025 1:17 PM EDT [facility] Hep B Core IgM Negative Negative LAB CHEMISTRY METHOD 01/28/2025 1:17 PM EDT [facility] Hepatitis C Antibody Negative Negative LAB CHEMISTRY METHOD 01/28/2025 1:17 PM EDT [facility] Blood Venous blood specimen / Unknown Venipuncture / Unknown 01/27/2025 11:19 PM EDT 01/27/2025 11:23 PM EDT us Sunil Escobar MD LAB BLOOD ORDERABLES Final Res ult [facility] [address] [place] [address], [place] [phone] * Chlamydia trachomatis and Neisseria gonorrhoeae molecular study (01/27/2025 11:19 PM EDT) Pathologist [facility] N. gonorrhoeae, RNA Probe Negative Negative LAB MOLECULAR DIAGNOSTICS METHOD 01/29/2025 4:54 AM EDT [facility] Chlamydia, RNA Probe Negative Negative LAB MOLECULAR DIAGNOSTICS METHOD 01/29/2025 4:54 AM EDT [facility] Swab Vaginal structure / Unknown Non-blood Collection / Unknown 01/27/2025 11:19 PM EDT 01/27/2025 11:23 PM EDT us Sunil Escobar MD LAB MICROBIOLOGY - GENERAL ORD ERABLES Final Result [facility] [address] [place] [address], [place] [phone] * (ABNORMAL) Urinalysis with reflex microscopic and culture (01/27/2025 8:37 PM EDT) Color, Urine Yellow Colorless, Yellow LAB URINALYSIS - AUTOMATED METHOD 01/27/2025 8:42 PM EDT [facility] Clarity, Urine Clear Clear LAB URINALYSIS - AUTOMATED METHOD 01/27/2025 8:42 PM EDT [facility] Specific [place] Urine 1.025 1.005 - 1.030 LAB URINALYSIS - AUTOMATED METHOD 01/27/2025 8:42 PM EDT [facility] pH, Urine 5.5 5.0 - 8.0 pH LAB URINALYSIS - AUTOMATED METHOD [facility] Leukocytes, Urine Negative Negative WBCs/mcL LAB URINALYSIS - AUTOMATED METHOD 01/27/2025 8:[facility] Nitrite, Urine Negative Negative LAB URINALYSIS - AUTOMATED METHOD 01/27/2025 8:42 PM EDT [facility] Protein, Urine Negative Negative mg/dL LAB URINALYSIS - AUTOMATED METHOD 01/27/2025 8:[facility] Glucose, Urine Negative Negative mg/dL LAB URINALYSIS - AUTOMATED METHOD 01/27/2025 8:42 PM EDT [facility] Ketones, Urine Negative Negative mg/dL LAB URINALYSIS - AUTOMATED METHOD 01/27/2025 8:42 PM EDT [facility] Blood, Urine Large(A) Negative mg/dL LAB URINALYSIS - AUTOMATED METHOD 01/27/2025 8:42 PM EDT [facility] Urine Urine specimen obtained by clean catch procedure / Unknown Non-blood Collection / Unknown 01/27/2025 8:37 PM EDT 01/27/2025 8:39 PM EDT us Sunil Escobar MD LAB URINE ORDERABLES Final Res ult [facility] [address] [place] [address], [place] [phone] * (ABNORMAL) Urinalysis microscopic reflex urine culture (01/27/2025 8:37 PM EDT) RBC, Urine 15(H) 0 - 3 /HPF 01/27/2025 8:44 PM EDT [facility] WBC, Urine 4 0 - 5 /HPF 01/27/2025 8:44 PM EDT [facility] Bacteria, Urine 1+(A) None /HPF 8:44 PM EDT [facility] Squamous Epithelial, Urine 5 0 - 5 /HPF 01/27/2025 8:44 PM EDT [facility] Mucus, UA 1+ None /LPF 01/27/2025 8:44 PM EDT [facility] Urine Urine specimen obtained by clean catch procedure / Unknown Non-blood Collection / Unknown 01/27/2025 8:37 PM EDT 01/27/2025 8:39 PM EDT us Sunil Escobar MD LAB URINE ORDERABLES Final Res ult [facility] [address] [place] [address], [place] [phone] * CBC auto differential (01/27/2025 8:37 PM EDT) WBC 8.5 4.0 - 10.5 K/mcL LAB HEMETOLOGY METHOD 01/27/2025 8:42 PM EDT [facility] RBC 4.65 4.20 - 5.40 M/mcL LAB HEMETOLOGY METHOD 01/27/2025 8:42 PM EDT [facility] Hemoglobin 13.5 12.5 - 16.0 g/dL LAB HEMETOLOGY METHOD 01/27/2025 8:42 PM EDT [facility] Hematocrit 41.0 37.0 - 47.0 % LAB HEMETOLOGY METHOD 01/27/2025 8:42 PM EDT [facility] MCV 88.2 78.0 - 100.0 FL LAB HEMETOLOGY METHOD 01/27[facility]2025 [facility] MCH 29.0 25.0 - 33.0 pcg LAB HEMETOLOGY METHOD 01/27/2025 8:[facility] MCHC 32.9 32.0 - 36.0 g/dL LAB HEMETOLOGY METHOD 01/27/2025 8:42 PM EDT [facility] RDW 14.0 12.1 - 16.2 % LAB HEMETOLOGY METHOD 01/27/2025 8:42 [facility] Platelets 322 150 - 450 K/mcL LAB HEMETOLOGY METHOD 01/27/2025 8:42 [facility] MPV 9.2 7.4 - 11.4 FL LAB HEMETOLOGY METHOD 01/27/2025 8:42 PM [facility] Neutrophils Relative 65.5 44.0 - 74.0 % LAB HEMETOLOGY METHOD 01/27/2025 8:42 PM [facility] Lymphocytes Relative 25.6 20.0 - 48.0 % LAB HEMETOLOGY METHOD 01/27/2025 8:42 PM [facility] Monocytes Relative 6.4 2.0 - 12.0 % LAB HEMETOLOGY METHOD 01/27/2025 8:42 PM [facility] Eosinophils Relative 1.8 0.0 - 6.0 % LAB HEMETOLOGY METHOD 01/27/2025 8:42 PM [facility] Basophils Relative 0.6 0.0 - 2.0 % LAB HEMETOLOGY METHOD 01/27/2025 8:42 PM [facility] Neutrophils Absolute 5.56 1.80 - 7.80 K/mcL LAB HEMETOLOGY METHOD 01/27/2025 8:42 PM [facility] Lymphocytes Absolute 2.17 1.00 - 3.20 K/mcL LAB HEMETOLOGY METHOD 01/27/2025 8:42 PM [facility] Monocytes Absolute 0.54 0.00 - 0.80 K/mcL LAB HEMETOLOGY METHOD 01/27/2025 8:42 PM [facility] Eosinophils Absolute 0.15 0.00 - 0.50 K/mcL LAB HEMETOLOGY METHOD 01/27/2025 8:42 PM [facility] Basophils Absolute 0.05 0.00 - 0.20 K/mcL LAB HEMETOLOGY METHOD 01/27/2025 8:42 PM [facility] Blood Venous blood specimen / Unknown Venipuncture / Unknown 01/27/2025 8:37 PM EDT 01/27/2025 8:39 PM EDT us Sunil Escobar MD LAB BLOOD ORDERABLES Final Res ult Performing Organization Address City/[facility]/ZIP Co de Phone Number [facility] [address] [place] [address], [place] [phone] * Culture urine (01/27/2025 8:37 PM EDT) [facility] Culture, Urine No growth 01/29/2025 7:16 AM EDT [facility] Urine Urine specimen obtained by clean catch procedure / Unknown Non-blood Collection / Unknown 01/27/2025 8:37 PM EDT 01/27/2025 8:42 PM EDT us Sunil Escobar MD LAB MICROBIOLOGY - GENERAL ORD ERABLES Final Result Performing Organization Address City/[facility]/ZIP Co de Phone Number [facility] [address] [place] [address], [place] [phone] * Lipase (01/27/2025 8:37 PM EDT) [facility] Lipase 56 11 - 82 unit/L LAB CHEMISTRY METHOD 01/27/2025 9:05 PM EDT [facility] Blood Venous blood specimen / Unknown Venipuncture / Unknown 01/27/2025 8:37 PM EDT 01/27/2025 8:39 PM EDT us Sunil Escobar MD LAB BLOOD ORDERABLES Final Res ult [facility] [address] [place] [address], [place] [phone] * (ABNORMAL) Comprehensive metabolic panel (01/27/2025 8:37 PM EDT) [facility] Sodium 139 135 - 145 mmol/L LAB CHEMISTRY METHOD 01/27/2025 9:05 PM [facility] Potassium 3.6 3.5 - 5.1 mmol/L LAB CHEMISTRY METHOD 01/27/2025 9:05 PM [facility] Chloride 107 98 - 107 mmol/L LAB CHEMISTRY METHOD 01/27/2025 9:05 PM [facility] CO2 24 24 - 32 mmol/L LAB CHEMISTRY METHOD 01/27/2025 9:05 PM [facility] Anion Gap 8 5 - 14 LAB CHEMISTRY METHOD 01/27/2025 9:05 PM [facility] Glucose 99 70 - 199 mg/dL LAB CHEMISTRY METHOD 01/27/2025 9:05 PM [facility] BUN 13 7 - 17 mg/dL LAB CHEMISTRY METHOD 01/27/2025 9:05 PM [facility] Creatinine 0.77 0.50 - 1.00 mg/dL LAB CHEMISTRY METHOD 01/27/2025 9:05 PM [facility] eGFR 91 >=60 mL/min/1. 73m2 LAB CHEMISTRY METHOD 01/27/2025 9:05 PM [facility] Comment:Calculation based on the Chronic Kidney Disease Epidemiology Collaboration (CKD-EPI) equation refit without adjustment for race. BUN/Creatinine Ratio 16.9 12.0 - 20.0 LAB CHEMISTRY METHOD 01/27/2025 9:05 PM [facility] Calcium 8.9 8.4 - 10.2 mg/dL LAB CHEMISTRY METHOD 01/27/2025 9:05 PM [facility] AST (SGOT) 13 5 - 40 unit/L LAB CHEMISTRY METHOD 01/27/2025 9:05 PM [facility] ALT (SGPT) 14 7 - 52 unit/L LAB CHEMISTRY METHOD 01/27/2025 9:05 PM EDT [facility] Alkaline Phosphatase 93 34 - 104 unit/L LAB CHEMISTRY METHOD 01/27/2025 9:05 PM EDT [facility] Total Protein 7.3 6.4 - 8.5 g/dL LAB CHEMISTRY METHOD 01/27/2025 9:05 PM EDT [facility] Albumin 3.5 3.5 - 5.0 g/dL LAB CHEMISTRY METHOD 01/27/2025 9:05 PM EDT [facility] Total Bilirubin 0.2(L) 0.3 - 1.0 mg/dL LAB CHEMISTRY METHOD 01/27/2025 9:05 PM EDT [facility] Blood Venous blood specimen / Unknown Venipuncture / Unknown 01/27/2025 8:37 PM EDT 01/27/2025 8:39 PM EDT us Sunil Escobar MD LAB BLOOD ORDERABLES Final Res ult [facility] [address] [place] [address], [place] [phone] * MAMMOGRAM SCREENING BILATERAL 3D PATI WITH [...] on 08/16/2022 10:59 AM. Workstation Name - [id number] Procedure Note Atilio Nicole MD - 07/24/2023 [...] MD on 08/16/2022 10:59AM. Workstation Name - [id number] Luda Drew NP IMG BI PROCEDURES Final Result from Last 3 Months or Most Recently Relevant to Health Maintenance Care Teams Mail Clerk Bills Relationship Specialty Start Date End Date Luda Drew NP [address] [place] [phone] PCP - General Family Medicine 09/24/20
--- OUTSIDE RECORDS SUMMARY | 2025-03-30 00:19 | XMS_ITS | Data Portability ---
Author Organization [place] - [facility], [facility] Address [id number] [place] [address] Care Team Providers Care Guest Services Agent Name Role Phone STEVEN FORMAN Primary Care Provider Assessment No assessment recorded. Plan of Treatment Reminders Order Date Submit Date Provider Last Modified By Organization Details Last Modified Time Details Appointments None record ed. Lab urinal ysis, dipsti ck 2021 022 [email or web address] on In-Office Order, Internal Use Only DO Not Attach Compendium DO Not Attach Compendium, Do Not Delete/merge, [id number] 2 10:24:52 pap, IG + HPV 2021 022 Formerly [facility], [address] [place] [address], [id number] 2 06:20:46 pap, IG + reflex HPV 2019 020 [facility]ly [facility], [address] [place] [address], [id number] 0 11:01:31 TSH, serum or plasma 2017 018 [facility]ly [facility], [address] [place] [address], [id number] 8 09:45:06 urinal ysis, dipsti ck 2017 018 [email or web address] on In-Office Order, Internal Use Only DO Not Attach Compendium DO Not Attach Compendium, Do Not Delete/merge, [id number] 8 10:27:34 vitami n D, 25-hyd eliana, total, serum 2017 018 Formerly [facility], [address] [place] [address], [address] 8 19:36:59 TSH, serum or plasma 2017 018 [facility], [address] [place] [address], [address] 8 19:36:58 CBC w/ auto diff 2017 018 [facility], [address] [place] [address], [address] 8 19:36:57 pap, IG + HPV 2017 018 [facility], [address] [place] [address], [id number] 8 15:04:30 HbA1c (hemog lobin A1c), blood 2017 018 [facility], [address] [place] [address], 911[address] 8 19:36:58 lipid panel, serum 2017 018 [facility], [address] [place] [address], [address] 8 19:36:57 CMP, serum or plasma 2017 018 [facility], [address] [place] [address], [id number] 8 19:36:57 Referral None record ed. Procedures None record ed. Surgeries None record ed. Imaging MAMMO, screen ing, tomosy nthesi s, bilate ral, w/ CAD 2021 022 [facility] ([facility]) , [address], [place], [address], 3 11:16:32 MAMMO, screen ing, tomosy nthesi s, bilate ral, w/ CAD 2019 020 [facility] (Central[facility]) , [address], [address], [place], [address], 1 12:20:05 MAMMO, screen ing, digita l, bilate ral [address] [facility], [address] [place], [address], 8 08:18:06 Medication Orders Yuvafe m 10 mcg vagina l tablet 2021 022 [id number] [facility] #[id number], [address] [place], [address], 4 10:01:30 Yuvafe m 10 mcg vagina l tablet 2021 022 [id number] [facility]armacy #[id number], [address] [place], [address], 4 10:01:30 ibupro fen 800 mg tablet 2017 018 [id number] [facility]armacy #[id number], [address] [place] [address], [address], 0 15:11:04 Patient TargetsNo targets recorded. Patient Instructions Encounter Date Encounter Id Patient Instructions Last Modified By Organization Details Last Modified Time 10/12/2017 [id number] breast self-exam: care instructions rbillstromnelson Not available 10/12/2017 10:27:34 self breast exam education rbillstromnelson Not available 10/12/2017 10:27:34 tips to help you stay healthy rbillstromnelson Not available 10/12/2017 10:27:34 04/06/2018 [id number] breast pain: care instructions rbillstromnelson Not available 04/06/2018 15:34:45 01/17/2020 [id number] breast self-exam: care instructions rbillstromnelson Not available 01/19/2020 11:23:42 Learning About Menopause and Perimenopause rbillstromnelson Not available 01/19/2020 11:23:42 learning about colonoscopy rbillstromnelson Not available 01/19/2020 11:23:42 premenstrual syndrome (PMS): care instructions rbillstromnelson Not available 01/19/2020 11:23:42 Behavioral health screening completed and reviewed with patient. Negative findings. rbillstromnelson Not available 01/19/2020 11:22:23 08/26/2021 [id number] atrophic vaginitis: care instructions rbillstromnelson Not available 08/26/2021 10:24:53 breast self-exam: care instructions rbillstromnelson Not available 08/26/2021 10:24:52 Learning About Menopause and Perimenopause rbillstromnelson Not available 08/26/2021 10:24:53 learning about [...] 5.2 thou/ uL 4.0-11 .0 Not Available [facility] [address] [place], [address] 10/13/2017 19:36:57 10/13/19 18 10/13/2017 CBC w/ auto diff red blood count 4.83 mil/u L 4.00-5 .40 Not Available [facility] [address] [place], [address] 10/13/2017 19:36:57 10/13/19 18 10/13/2017 CBC w/ auto diff hemoglobin 13.7 g/dL 11.7-1 5.7 Not Available [facility] [address] [place], [address] 10/13/2017 19:36:57 10/13/19 18 10/13/2017 CBC w/ auto diff hematocrit 43.5 % 35.0-4 7.0 Not Available [facility] [address], 10/13/2017 19:36:57 10/13/19 18 10/13/2017 CBC w/ auto diff MCV 90 fL 80-100 Not Available [facility] [address] [place], [address] 10/13/2017 19:36:57 10/13/19 18 10/13/2017 CBC w/ auto diff MCH 28.4 pg 27.0-3 1.0 Not Available [facility] [address] [place], [address] 10/13/2017 19:36:57 10/13/19 18 10/13/2017 CBC w/ auto diff MCHC 31.5 g/dL 30.0-3 6.0 Not Available [facility] [address] [place], [address] 10/13/2017 19:36:57 10/13/19 18 10/13/2017 CBC w/ auto diff RDW 13.7 % 11.5-1 4.5 Not Available [facility] [address] [place], [address] 10/13/2017 19:36:57 10/13/19 18 10/13/2017 CBC w/ auto diff platelet count 297 thou/ uL 150-45 0 Not Available [facility] [address], [facility] 10/13/2017 19:36:57 10/13/19 18 10/13/2017 CBC w/ auto diff MPV 10.9 fL 9.4-12 .5 Not Available [facility] [address] [place], [address] 10/13/2017 19:36:57 10/13/19 18 10/13/2017 CBC w/ auto diff neutrophil 65.2 % Not Available [facility] [address] [place], [address] 10/13/2017 19:36:57 10/13/19 18 10/13/2017 CBC w/ auto diff lymphocyte 25.5 % Not Available [facility] [address] [place], [address] 10/13/2017 19:36:57 10/13/19 18 10/13/2017 CBC w/ auto diff monocyte 5.4 % Not Available [facility] [address], 10/13/2017 19:36:57 10/13/19 18 10/13/2017 CBC w/ auto diff eosinophil 3.5 % Not Available [facility] [address] [place], [address] 10/13/2017 19:36:57 10/13/19 18 10/13/2017 CBC w/ auto diff basophil 0.2 % Not Available [facility] [address] [place], [address] 10/13/2017 19:36:57 10/13/19 18 10/13/2017 CBC w/ auto diff neutrophil, absolute 3.38 thou/ uL 2.00-7 .50 Not Available [facility] [address] [place], [address] 10/13/2017 19:36:57 10/13/19 18 10/13/2017 CBC w/ auto diff lymphocyte, absolute 1.32 thou/ uL 1.50-4 .50 low Not Available [facility] [address] [place], [address] 10/13/2017 19:36:57 10/13/19 18 10/13/2017 CBC w/ auto diff monocyte, absolute 0.28 thou/ uL 0.20-1 .50 Not Available [facility] [address] [place] [address], [facility] 10/13/2017 19:36:57 10/13/19 18 10/13/2017 CBC w/ auto diff eosinophil, absolute 0.18 thou/ uL 0.00-0 .70 Not Available [facility] [address] [place], [address] 10/13/2017 19:36:57 10/13/19 18 10/13/2017 CBC w/ auto diff basophil, absolute 0.01 thou/ uL 0.00-0 .20 Not Available [facility] [address] [place] [address], [facility] 10/13/2017 19:36:57 10/13/19 18 10/13/2017 CBC w/ auto diff immature granulocyte 0.2 % Not Available [facility] [address] [place], [address] 10/13/2017 19:36:57 10/13/19 18 10/13/2017 CBC w/ auto diff immature granulocyte, absolute 0.01 thou/ uL 0.00-0 .10 Not Available [facility] [address] [place], [address] 10/13/2017 19:36:57 10/13/19 18 10/13/2017 CMP, serum or plasm a glucose 80 mg/dL 65-99 Fasti ng refer ence inter rory Not Available [facility] [address] [place], [address] 10/13/2017 19:36:57 10/13/19 18 10/13/2017 CMP, serum or plasm a blood urea nitrogen (BUN) 11 mg/dL 7-25 Not Available [facility] [address] [place] [address], [address] 10/13/2017 19:36:57 10/13/19 18 10/13/2017 CMP, serum or plasm a creatinine 0.78 mg/dL 0.50-1 .10 Not Available [facility] [address] [place] [address], [address] 10/13/2017 19:36:57 10/13/19 18 10/13/2017 CMP, serum or plasm a eGFR 89 mL/mi n/1.7 3m2 > or = 60 Not Available [address], [address] 10/13/2017 19:36:57 10/13/19 18 10/13/2017 CMP, serum or plasm a estimated GFR 103 mL/mi n/1.7 3m2 > or = 60 Not Available [address], [address] 10/13/2017 19:36:57 10/13/19 18 10/13/2017 CMP, serum or plasm a BUN / creatinine ratio NOT APPLIC ABLE (calc ) 6-22 Not Available [address], [address] 10/13/2017 19:36:57 10/13/19 18 10/13/2017 CMP, serum or plasm a sodium 140 mmol/ L 135-14 6 Not Available [facility] [address] [place] [address], [address] 10/13/2017 19:36:57 10/13/19 18 10/13/2017 CMP, serum or plasm a potassium 4.4 mmol/ L 3.5-5. 3 Not Available [facility] [address] [place] [address], [address] 10/13/2017 19:36:57 10/13/19 18 10/13/2017 CMP, serum or plasm a chloride 110 mmol/ L 98-110 Not Available [address], [address] 10/13/2017 19:36:57 10/13/19 18 10/13/2017 CMP, serum or plasm a carbon dioxide 23 mmol/ L 20-31 Not Available [facility] [address] [place] [address], [address] 10/13/2017 19:36:57 10/13/19 18 10/13/2017 CMP, serum or plasm a calcium 9.1 mg/dL 8.6-10 .2 Not Available [facility] [address] [place] [address], [facility] 10/13/2017 19:36:57 10/13/19 18 10/13/2017 CMP, serum or plasm a alkaline phosphatase 55 U/L 33-115 Not Available [facility] [address] [place] [address], [facility] 10/13/2017 19:36:57 10/13/19 18 10/13/2017 CMP, serum or plasm a aspartate aminotrans (AST) 12 U/L 10-35 Not Available [facility] b [address] [place] [address], [facility] 10/13/2017 19:36:57 10/13/19 18 10/13/2017 CMP, serum or plasm a alanine aminotrans (ALT) 12 U/L 6-29 Not Available [facility] b [address] [place] [address], [facility] 10/13/2017 19:36:57 10/13/1910/13/2017 CMP, serum or plasm a bilirubin, total 0.3 mg/dL 0.2-1. 2 Not Available [facility] [address] [place] [address], [facility] 10/13/2017 19:36:57 10/13/1910/13/2017 CMP, serum or plasm a protein, total 6.4 g/dL 6.1-8. 1 Not Available [facility] [address] [place] [address], [facility] 10/13/2017 19:36:57 10/13/1910/13/2017 CMP, serum or plasm a albumin 3.8 g/dL 3.6-5. 1 Not Available [facility] [address] [place] [address], [facility] 10/13/2017 19:36:57 10/13/19 18 10/13/2017 CMP, serum or plasm a globulin 2.6 g/dL_ (calc ) 1.9-3. 7 Not Available [facility] [address] [place] [address], 10/13/2017 19:36:57 10/13/19 18 10/13/2017 CMP, serum or plasm a albumin/glob ulin ratio 1.5 (calc ) 1.0-2. 5 Not Available [facility] [address] [place] [address], [address] 10/13/2017 19:36:57 10/13/19 18 10/13/2017 lipid panel , serum cholesterol, total 128 mg/dL <200 Not Available [facility] [address] [place] [address], [address] 10/13/2017 19:36:57 10/13/19 18 10/13/2017 lipid panel , serum triglyceride s 89 mg/dL <150 Not Available [facility] [address] [place] [address], [address] 10/13/2017 19:36:57 10/13/19 18 10/13/2017 lipid panel , serum cholesterol, HDL 34 mg/dL >50 low Not Available [facility] b [address] [place] [address], 10/13/2017 19:36:57 10/13/19 18 10/13/2017 lipid panel , serum estimated LDL 77 [...] n, which is a valid ated novel levono kieran avila accur acy than the Fried shaylee equat ion in the estim ation of LDL-C . Monserrat tapia SS et al. LEEANNE. 2013; 310(1 9): 2061- 2068 (http ://ed kathrynati on.Qu Americo ricos. com/f aq/FA Q164) Not Available [facility] [address] [place] [address], 10/13/2017 19:36:57 10/13/19 18 10/13/2017 lipid panel , serum cholesterol/ HDL ratio 3.8 (calc ) <5.0 Not Available [facility] [address], 10/13/2017 19:36:57 10/13/19 18 10/13/2017 lipid panel , serum non HDL cholesterol 94 mg/dL _(negrita c) <130 For patie nts with diabe ailin plus 1 major ASCVD risk facto r, treat ing to a non-H DL-C goal of <100 mg/dL (LDL- C of <70 mg/dL ) is consi dered a thera peuti c optio n. Not Available [facility] [address] [place] [address], 10/13/2017 19:36:57 10/13/19 18 10/13/2017 TSH, serum or plasm a TSH, highly sensitive 1.02 mIU/L 0.35-4 .94 Not Available [facility] [address] [place] [address], 10/13/2017 19:36:58 10/13/19 18 10/13/2017 HbA1c (hemo globi n A1c), blood hemoglobin A1C 4.9 % <5.7 A1c% Inter preta tion 5.7 - 6.0 Incre ase risk of diabe aiiln 6.1 - 6.4 Highe r risk of diabe ailin > or = 6.5 Consi stent with diabe ailin Diabe ailin Care, 33(Adamson pp 1):S1 -S61, 2009 Not Available [facility] [address] [place] [address], 10/13/2017 19:36:58 10/13/1910/13/2017 vitam in D, 25-hy droxy , total , serum vitamin D, 25-hydroxy 6 NG/mL 8-66 low Not e new refer ence range effec tive 2016* * Not Available [facility] [address] [place] [address], 10/13/2017 19:36:58 10/13/19 18 10/13/2017 pap, IG [...] types from this sourc e. Not Available [facility] [address] [facility] [place], [address] 10/17/2017 15:04:30 10/13/19 18 10/17/2017 pap, IG [...] SQUAM OUS INTRA EPITH ELIAL LESIO N 336[address] . ENDOM ETRIA L CELLS CORRE LATE [...] Glenis d Out: JOVI REED MD [facility], [place]( [place]) CLINI NEGRITA INFOR MATIO N: LMP: Z01.4 19 Numbe r of vials /slid es submi tted: 1 Speci men sourc e: CERVI X/END OCERV IX Abnor mal Pap Date: NI Autom ated presc reeni ng of all liqui d based speci mens is perfo rmed by the ThinP rep Imagi ng Syste m, unles s other [place] state d. The Pap test is a scree vini test with an inher ent false negat radhames rate. [facility]i ng [facility] at [facility] , [address] [place] [address] CLIA [id number]. Not Available [facility] [address] [place], [address] 10/17/2017 15:04:30 10/13/19 18 10/12/2017 urina lysis , dipst ick Leukocytes Negati ve Not Available In-Office Order Internal Use Only DO Not Attach Compendium DO Not Attach Compendium, Do Not Delete/merge, [facility] 10/12/2017 10:18:35 10/13/19 18 10/12/2017 urina lysis , dipst ick Nitrite negati ve Not Available In-Office Order Internal Use Only DO Not Attach Compendium DO Not Attach Compendium, Do Not Delete/merge, [facility] 10/12/2017 10:18:35 10/13/19 18 10/12/2017 urina lysis , dipst ick Protein Negati ve Not Available In-Office Order Internal Use Only DO Not Attach Compendium DO Not Attach Compendium, Do Not Delete/merge, [facility] 10/12/2017 10:18:35 10/13/19 18 10/12/2017 urina lysis , dipst ick Glucose Negati ve Not Available In-Office Order Internal Use Only DO Not Attach Compendium DO Not Attach Compendium, Do Not Delete/merge, [facility] 10/12/2017 10:18:35 04/06/20 18 04/07/2018 TSH, serum or plasm a TSH, highly sensitive 0.66 mIU/L 0.35-4 .94 Not Available [facility] [address] [place], [address] 04/07/2018 09:45:06 01/17/20 20 01/17/2020 pap, IG [...] INFOR ITALO N: LMP: NG Speci men [facility] e: Cervi x, Endoc ervix CPT Codes : 25299 ICD Codes : Z12.4 Not Available [facility] [address] [place], [address] 01/21/2020 11:01:31 08/27/19 22 08/26/2021 HPV MRNA [...] detec t all HPV types from this sour e Not Available [facility] [address] [place], [address] 08/31/2021 06:20:44 08/27/1908/26/2021 THINP REP PAP TEST [...] NEGAT RADHAMES FOR INTRA EPITH CHLOE MONTIELMANA N OR JOSHUA ACUNA . Elect reny Galvin d: Malik Quiles, [place] (ASCP ) ----- ----- ----- ----- ----- ----- ----- ----- ----- ----- ----- ----- CLINI NEGRITA INFOR MATIO N: LMP: NG Clini negrita Histo ry: RTN Speci men Sourc e: Cervi x, Endoc ervix HPV RESUL TS: HPV mRNA E6/E7 [id number] Appro bonita: 08/27 Negat radhames REF RANGE : Negat radhames CPT Codes : 09395 ICD Codes : Z12.4 Not Available [facility] [address] [place] [address], [address] 08/31/2021 06:20:46 08/27/19 22 08/26/2021 urina lysis , dipst ick Interpretati on negati ve Not Available In-Office Order Internal Use Only DO Not Attach Compendium DO Not Attach Compendium, Do Not Delete/merge, [id number] 08/24/2021 09:39:31 08/27/19 22 08/26/2021 urina lysis , dipst ick Leukocytes Negati ve Not Available In-Office Order Internal Use Only DO Not Attach Compendium DO Not Attach Compendium, Do Not Delete/merge, [id number] 08/24/2021 09:39:31 08/27/19 22 08/26/2021 urina lysis , dipst ick Nitrite negati ve Not Available In-Office Order Internal Use Only DO Not Attach Compendium DO Not Attach Compendium, Do Not Delete/merge, [id number] 08/24/2021 09:39:31 08/27/19 22 08/26/2021 urina lysis , dipst ick Protein Negati ve Not Available In-Office Order Internal Use Only DO Not Attach Compendium DO Not Attach Compendium, Do Not Delete/merge, [id number] 08/24/2021 09:39:31 08/27/19 22 08/26/2021 urina lysis , dipst ick Glucose Negati ve Not Available In-Office Order Internal Use Only DO Not Attach Compendium DO Not Attach Compendium, Do Not Delete/merge, [id number] 08/24/2021 09:39:31 10/20/19 18 10/17/2017 MAMMO , scree vini, digit al, bilat eral, w/ CAD HISTOR Y: Nanci akins is 47 years old and is seen for screen ing. The patien t has no person al histor y of breast or ovaria n cancer . The patien t has no family histor y of breast cancer . FILMS COMPAR ED: This is the patif[place] hind[place] baseli ne mammog juli. MAMMOG JULI FINDIN [...] examin ations will also identi fy the patif[place] hinds person al breast tissue compos ition as requir ed by state law. BIRADS Catego ry 0: Incomp lete: Need Additi onal Imagin g Evalua tion Thank you for referr ing your patien t to us, Emanuel Louie MD [phone] (Elect yoan easley Signed - 2017 08:14) [facility] [place] [address] [facility] [address], [place], [address], 10/31/2017 12:50:04 11/03/19 18 11/02/2017 MAMMO , diagn ostic , digit al, unila teral HISTOR Y: Nanci akins is 47 years old and is seen for additi onal evalua tion reques manasa at [facility] screen ing. The patien t has no person al histor y of breast or ovaria n cancer . The patien t has no family histor y of breast cancer . FILMS COMPAR ED: The pres t examin ation has been compar ed [...] nanci akins to us, Ashley Durbin MD [phone] (Elect yoan easley Signed - 2017 16:46) [facility] [place] [address] [facility] [address], [place], [address], 11/06/2017 16:50:39 11/03/19 18 11/02/2017 US, jamil akins, unila teral HISTOR Y: Nanci akins is 47 years old and is seen for additi onal evalua tion reques manasa at [facility] screen ing. The nanci akins has no person al histor y of breast or ovaria n cancer . The patifabián akins has no family histor y of breast cancer . FILMS COMPAR ED: The presfabián akins examin ation has been compar ed to [...] referr ing your patien t to us, Ahsley Durbin MD [phone] (Elect yoan karly Signed - 2017 16:46) [facility] [place] [address], [place], [address], 11/06/2017 16:50:39 01/29/20 24 01/29/2024 US, trans vagin al RAD rbillstrom bud n [facility] [address], [place], [address], 01/30/2024 08:45:21 01/29/20 24 01/29/2024 US, trans vagin al RAD rbillstrom bud n [facility] [address], [place], [address], 01/30/2024 08:45:27 Result Notes Documentation Provider Name and Address Organization Details Recorded Time Mammo, Screening, Digital, Bilateral, W/ Cad : HISTORY: Patient is 47 years old and is seen for screening. The patient has no personal history of breast or ovarian cancer. The patient has no family history of breast cancer. FILMS COMPARED: This is the patients baseline mammogram. MAMMOGRAM FINDINGS: The following digital mammographic views were obtained: bilateral craniocaudal, bilateral mediolateral oblique. There are scattered fibroglandular densities. (ACR BIRADS density Category b) * There is an oval mass measuring 7 millimeters seen in the lower inner quadrant of the left breast located 7 centimeters from the nipple. In the right breast, no suspicious masses, calcifications or other abnormalities are seen. Computer-aided detection was utilized by the radiologist in the interpretation of this examination. IMPRESSION: Mass in the left breast requires additional evaluation. Additional imaging (left craniocaudal spot compression, left mediolateral oblique spot compression, and left ultrasound if warranted) is recommended. The patient will receive a lay summary of the results of this breast imaging exam. Lay summaries for mammography examinations will also identify the patients personal breast tissue composition as required by state law. BIRADS Category 0: Incomplete: Need Additional Imaging Evaluation Thank you for referring your patient to us, Emanuel Louie MD [phone] (Electronically Signed - 10/19/2017 08:14) Alexandre britton CT - [facility] 10/31/2017 12:50:04 Mammo, Diagnostic, Digital, Unilateral : HISTORY: Patient is 47 years old and is seen for additional evaluation requested at current screening. The patient has no personal history of breast or ovarian cancer. The patient has no family history of breast cancer. FILMS COMPARED: The present examination has been compared to a prior imaging study dated 10/17/2017. MAMMOGRAM FINDINGS: The following digital mammographic views were obtained: left craniocaudal spot compression, left mediolateral oblique spot compression, left craniocaudal top rolled medial, left craniocaudal top rolled lateral. There are scattered fibroglandular densities. (ACR BIRADS density Category b) * Finding 1: Additional evaluation was performed for the oval mass in the left breast, lower inner quadrant seen on 10/17/2017. On the present examination, there is a low density, oval mass measuring 7 millimeters with obscured margins in the left breast lower inner quadrant at 7 oclock located 6 centimeters from the nipple. Finding 2: The finding in question is not seen on mammogram. ULTRASOUND FINDINGS: Targeted high resolution grayscale sonography was performed of the area of concern. Finding 1: Ultrasound demonstrates an oval cyst measuring 6 millimeters, with long axis parallel to the chest wall in the left breast lower inner quadrant at 7 oclock located 6 centimeters from the nipple. Finding 2: There is a complicated cyst measuring 3 millimeters seen in the middle third of the left breast lower outer quadrant at 5 oclock located 3 centimeters from the nipple. IMPRESSION: Finding 1: Cyst in the left breast is probably benign. Short interval follow-up mammogram and ultrasound of the left breast in 6 months is recommended. Finding 2: Complicated cyst in the middle third of the left breast lower outer quadrant at 5 oclock located 3 centimeters from the nipple is probably benign. A short interval diagnostic ultrasound follow up in 6 months is recommended. The patient was informed of these findings at the time of the exam. The patient will receive a lay summary of the results of this breast imaging exam. Lay summaries for mammography examinations will also identify the patients personal breast tissue composition as required by state law. BIRADS Category 3: Probably Benign Thank you for referring your patient to us, Halley Durbin MD [phone] (Electronically Signed - 11/02/2017 16:46) Alexandre britton, [facility] [facility] 16:50:39 Problems Name Problem SNOMED Code Status Onset Date Resolution Date Notes Provider Name and Address Organization Details Recorded Time Allergy to food 752073542 Active Sabina Maya null, [facility] 8 10:12:49 Palpitations 57045203 Active Sabina Maya null, [facility] 8 10:13:17 Constipation 04917336 Active Joan Linares null, [facility] 4 08:29:09 Acute sinusitis 92133239 Active Joan Linares null, [facility] 4 08:29:09 Body mass index 30+ - obesity 797564169 Active Joan Linares null, [facility] 4 08:29:09 Erythrocyte sedimentation rate above reference range 113869683 Active Joan Linares null, [facility] 4 08:29:09 Anxiety disorder 173847758 Active Joan Linares null, [facility] 4 08:29:09 Disorder of skin appendage 231733283 Active Joan Linares null, [facility] 4 08:29:09 Labyrinthitis 11437001 Active Joan Linares null, [facility] 4 08:29:09 Headache 35435095 Active Joan Linares null, [facility] 4 08:29:09 Gastroesophag eal reflux disease without esophagitis 212229991 Active Joan Linares null, [facility] 4 08:29:09 Dizziness and giddiness 096100806 Active Joan Linares null, [facility] 4 08:29:09 Chest pain 93482492 Active Joan Linares null, [facility] 4 08:29:09 Bronchitis 97603506 Active Joan Linares null, [facility] 4 08:29:09 Viral disease 51417127 Active Joan Linares null, [facility] 4 08:29:09 Vitamin D deficiency 24412373 Active Joan Linares null, [facility] 4 08:29:09 Migraine with aura 2175363 Active Joan Linares null, [facility] 4 08:29:09 Hyperlipidemi a 91409022 Active Joan Linares null, [facility] 4 08:29:09 Nicotine dependence 94851824 Active Joan Linares null, [facility] 4 08:29:09 Chronic cough 99375689 Active Joan Linares null, [facility] 4 08:29:09 Atrophic vaginitis 26158559 Active 2021 GYPSY MEZA MD [address] [place] [address], [place], [address] , [facility] 2 10:27:32 Maxillary sinusitis 50206211 Active 2023 Joan Linares null, [facility] 4 08:29:09 Polymyalgia rheumatica 67046246 Active 2023 Joan Linares null, [facility] 4 08:29:09 Vaginal mass 643537410 Active 2023 Joan Milagros null, [facility] 4 08:29:09 Left lower quadrant pain 405579892 Active 2023 Joan Linares null, [facility] 4 08:29:09 Notes:Some problems listed i n Document: #[id number] could not be added to this patient's chart. Please review this document and add these problems to the patient's chart manually as needed. Problem Notes None recorded. Procedures Surgical History Date Name Laterality Status Provider Name and Address Organization Details Recorded Time 08/11/19 23 Date of Last Mammogram completed Amy Borges [facility] 10/24/2023 10:15:44 08/27/19 22 Date of Last Pap Smear completed Amy Borges [facility] 10/24/2023 10:14:29 01/17/20 20 [id number] completed GYPSY MEZA MD [address], [place], [address], [facility] 01/19/2020 11:20:03 01/17/20 20 [id number] completed GYPSY MEZA MD [address], [address], [place], [address], [facility] 01/19/2020 11:20:06 06/19/19 19 Date of Last Colonoscopy completed Rachael Davis [facility] 08/26/2021 09:10:59 10/13/19 18 [id number] completed GYPSY MEZA MD [address], [place], [address], [facility] 10/12/2017 11:11:04 10/13/19 18 [id number] completed GYPSY MEZA MD [address], [address], [place], [address], [facility] 10/12/2017 11:11:00 06/19/18 98 Cholecystectomy completed GYPSY MEZA MD [address], [address], [place], [address], [facility] 10/12/2017 11:17:02 06/19/18 98 Tubal Ligation completed GYPSY MEZA MD [address], [address], [place], [address], [facility] 10/12/2017 11:17:22 06/19/18 90 Dilation & suction completed GYPSY MEZA MD [address] [facility], [address], [place], [address], [place] [facility] 10/12/2017 11:17:11 Imaging Results None recorded. Procedure Notes None recorded. Medical Equipment None Reported. Allergies Allergen ID Allergen Name Allergen Category Reaction Reaction Severity Criticality Documentation Date Start Date Code Code System Note Provider Name and Address Organization Details Recorded Time 0166754 cocoa extract food,medi cation fever rash moderate Not available Not available 10/12/2017 [address] [facility], [facility] 8 09:50:49 1107693 Motrin medicatio n Not available Not available Not available 01/29/202473994 [address] [facility], [facility] 4 08:28:59 Medications Name Sig Start Date [...] completed Not Available Not Available Not Available [facility] ing tablet [facility] 1 TAB ON TOP OF TONGUE,AL LOW TO DISSOLVE THEN SWALLOW ONCE NEEDED MIGRAINE- MAX 1 DOSE/DAY 11/11 completed Not Available Not Available Not Available [facility] COVID-19 Antigen Home Test kit 06/28 completed Not Available Not Available Not Available Vitals Date Recorded Body height Body mass index (BMI) Body weight Systolic And Diastolic Provider Name and Address Organization Details Last Updated DateTime 08/26/2021 154.94 cm 30.4 kg/m2 39946.37 g 114/78 mm[Hg] Rachael Davis [facility] 08/26/2021 09:09:48 Date Recorded Body height Body mass index (BMI) Body weight Systolic And Diastolic Provider Name and Address Organization Details Last Updated DateTime 10/12/2017 154.94 cm 27.2 kg/m2 77082.3 g 112/72 mm[Hg] Sabina Maya [place] - [facility] 10/12/2017 10:08:33 Date Recorded Body height Body mass index (BMI) Body weight Systolic And Diastolic Provider Name and Address Organization Details Last Updated DateTime 01/17/2020 154.94 cm 28.3 kg/m2 81233.86 g 120/78 mm[Hg] Amy Jony [facility] 01/17/2020 15:10:46 Date Recorded Body height Body mass index (BMI) Body weight Systolic And Diastolic Provider Name and Address Organization Details Last Updated DateTime 01/29/2024 154.94 cm 32.3 kg/m2 13627.3 g 110/70 mm[Hg] Joan Friedmanvo [facility] 01/29/2024 10:02:28 Date Recorded Body height Body mass index (BMI) Body weight Systolic And Diastolic Provider Name and Address Organization Details Last Updated DateTime 04/06/2018 154.94 cm 26.3 kg/m2 36748.34 g 120/80 mm[Hg] Danica Pa [facility] 04/06/2018 14:32:16 Social History Question Answer Notes LastModified by Organizat ion Details LastModified Time Tobacco Smoking Status Former Smoker Rachael britton, [facility] 08/26/2021 09:06:32 What Is The Highest Grade Or Level Of School You Have Completed Or The Highest Degree You Have Received? [id number] Information not available 08/26/2021 Do You Have [...] Date Of Your Most Recent Tobacco Screening? 2 Information not available 08/26/2021 How Many Children Do You Have? 4 Information not available 08/26/2021 Are You Sexually Active? Yes Information not available 08/26/2021 How Much Tobacco Do You Smoke? 0.5 PPD Previouslys Moked 1.5 PPD, Last 15 Years 1/2 Ppd Information not available 08/26/2021 Have You Recently Traveled Abroad? No Information not available 08/26/2021 Sex: Female Functional Status Question Answer Note LastModified by Organizat ion Details LastModified Time What is your level of alcohol consumption? Occasional Information not available 10/12/2017 Are you currently employed? 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 Moderate Information not available 08/26/2021 Mental Status Question Answer Note LastModified by Organization D etails LastModified Time Do you feel stressed (tense, restless, nervous, or anxious, or unable to sleep at night)? [id number] Information not available 08/26/2021 Family History Relationship Description Onset Age of this Age Resolved Age Notes LastModified by Organization Details LastModified Time Father Family history of Father alive and well [email or web address] Not available 2017 10:13:37 Mother Family history of Mother alive and well [email or web address] Not available 2017 10:13:44 Paternal Grandmother Malignant neoplasm of colon 72 [email or web address] Not available 10/12/2017 11:15:56 Paternal Grandmother Malignant neoplasm of cervix uteri pt. added direct ly (08/20) [email or web address] Not available 08/20/2021 15:39:52 Unspecified Relation Malignant neoplasm of cervix uteri Patern al Great Grandm other Not available 10/12/2017 10:15:23 Notes:no h/o breast, uterine or ovarian CA Medical History Condition Response Other N *No Diseases or Conditions N Blood clots N Breast Cancer N Benign breast disease N Colon cancer N Lung Disease N Depression N Defects or Inherited Disease N Anesthesia Complications N Neurological Disorder N Headaches/Migraines Y Have you ever been on isolation N Anxiety Disorder N Arthritis N HSV N Infertility N Abnormal pap Y Interstitial Cystitis N Acid Reflux (GERD) N Cancer N Stroke N Endometriosis N Fibromyalgia N HIV N Heart Problems N Sexual Dysfunction N Autoimmune disorder N Kidney or Bladder Problems N Thyroid Problems N GI Problems N Eating Disorder [...] zoster recombinant 07/30/2021 completed Joan Linares null, [facility] 01/29/2024 08:29:22 zoster recombinant 08/04/2022 completed Joan Linares null, [facility] 01/29/2024 08:29:22 COVID-19, mRNA, LNP-S, PF, 30 mcg/0.3 mL dose 09/24/2020 completed Joan Linares null, [facility] 01/29/2024 08:29:22 COVID-19, mRNA, LNP-S, PF, 30 mcg/0.3 mL dose 10/15/2020 completed Joan Linares null, [place] - [facility] 01/29/2024 08:29:22 COVID-19, mRNA, LNP-S, PF, 30 mcg/0.3 mL dose 06/03/2021 completed Joan Linares null, [place] - [facility] 01/29/2024 08:29:22 COVID-19, mRNA, LNP-S, PF, 30 mcg/0.3 mL dose, say-sucrose 11/28/2021 completed Joan Linares null, [place] - [facility] 01/29/2024 08:29:22 Tdap 12/12/2017 completed Joan Linares null, [facility] 01/29/2024 08:29:22 Hep B, unspecified formulation 08/25/2020 completed Joan Linares null, [facility] 01/29/2024 08:29:22 Hep B, unspecified formulation 01/23/2020 completed Joan Linares null, [facility] 01/29/2024 08:29:22 Hep B, unspecified formulation 02/25/2020 completed Joan Linares null, [facility] 01/29/2024 08:29:22 TST-PPD intradermal 01/09/2020 completed Joan Linares null, [facility] 01/29/2024 08:29:22 Influenza, split virus, quadrivalent, PF 04/27/2021 completed Joan Linares null, [facility] 01/29/2024 08:29:22 Influenza, split virus, quadrivalent, PF 05/24/2022 completed Joan Linares null, [facility] 01/29/2024 08:29:22 Past Encounters Encounter ID Performer Location Encounter Start Date Encounter Closed Date Diagnosis/Indication Diagnosis SNOMED-CT Code Diagnosis ICD10 Code Diagnosis IMO Codes Diagnosis Note [id number] GYPSY MEZA MD [facility],[facility] [address] [place] [address] 10/12/2017 09:45:27 10/12/2017 10:40:09 Gynecologic examination 79280066 Z01.419 Pt with normal padder cushion exam. Counseled regarding contracept radhames options, pt [...] > given referral for Dr. Cruz in [place] and routine blood work sent and to f/u with PCP if abnormal. Informed to RTO in 1 year for annual exam. [id number] GYPSY MEZA MD [facility] [place] [address] 04/06/2018 14:18:58 04/06/2018 15:03:21 Irregular periods 58460410 N92.6 Pt with irregular bleeding. discussed possible etiologies including menopausal transition , thyroid dysfunctio n, endometria l polyp. Advised evaluation with u/s and possible EMBx to rule out a pre-cancer or cancer. Pt will get TSH checked now. RTO for u/s and EMB. Pain of breast 40144246 N64.4 Pt with left sided breast pain s/p mammogram, no abnormalit ies noted. Pt going for f/u imagin in 04/2018, keep this appointmen t. Advised trial of 1 week of NSAIDs and vitamin E. Pt advised if not better would refer to breast surgeon for evaluation . [id number] GYPSY MEZA MD [facility] [place] [address] 01/17/2020 14:50:28 01/17/2020 15:28:14 Gynecologic examination 44524120 Z01.419 Patient with normal annual padder cushion exam. Pt satisfied with contracept ion choice, doing well. Pt aware of mammogram recommende d yearly screening. Pap smear obtained. Discussed healthy diet, exercise, weight management , vitamin D of 800 IU a day and calcium 1200 mg/day. RTO 1 year annual exam. Screening mammography 24 209213 Z12.31 Depression screening 171 392065 Z13.31 Screening for malignant neoplasm of cervix 667117463 Z12.4 Premenstru al dysphoric disorder 420811 F32.81 Pt with worsening PMDD. Discussed treatment with ocp versus luteal phase. Pt was given Rx for escitalopr am, not yet taking regularly. Discussed trial of different medication . Will think about her options and call. [id number] GYPSY MEZA MD [facility] [address] [place] [address] 08/26/2021 08:53:19 08/26/2021 09:36:35 Gynecologic examination 39321029 Z01.419 Patient with normal annual padder cushion exam. Pt satisfied with contracept ion choice, [...] exam. Screening for malignant neoplasm of cervix 441981788 Z12.4 Screening mammography 24 421898 Z12.31 Depression screening 171 551817 Z13.31 Atrophic vaginitis 17774 000 N95.2 Pt with dyspareuni a secondary [...] agreement and desires trial of medication . [id number] GYPSY MEZA MD [facility] [place] [address] 01/29/2024 08:21:23 01/29/2024 10:17:41 Pelvic mass 08472824 R19.00 53 yo with feelings of a vaginal mass, on exam no mass appreciate d. No evidence of prolapse even with valsalva. Ultrasound normal. Reassuranc e provided. Pt aware if she feels it again to call and be seen that day. Pain in pelvis 13729603 R10.2 Health Concerns Section Related Observation LastModified by Organization Detai ls LastModified Time None Recorded Concern Status LastModified by Organization Details LastModified Time None Recorded Advance Directives Directive None Recorded Payers Insurance Date Sequence Insurance Name Policy Number Policy Fitzpatrick Covered Member ID Fitzpatrick Member ID Guarantor Name 01/14/2020 1 [facility] [id number] Ashanti Chamberlain [id number] Ashanti Chamberlain 03/11/2024 1 [place] [id number] Rey Chamberlain [id number] Ashanti Chamberlain 08/13/2020 1 [employer] [id number] Ashanti Chamberlain [id number] Ashanti Chamberlain Notes Date Note Type Note Provider Name and Address Organization Details Recorded Time 8 text/html [facility] Annual GYNReported by PatientHistoryFor history, patient reportsno gynecologic complaints.Genitourinary symptomsFor urinary symptoms, patient reportsstress incontinence (occasional, not bothersome)but reportsno hematuria. For menstrual cycle, patient reportsnormal menses (> no imb). For vulva, patient reportsno genital lesion. For vagina, patient reportsnormal vaginal discharge.Breast symptomsFor breast, patient reportsno breast pain,no breast lump, andno nipple discharge.ContraceptionFor current contraception, patient reportssatisfied with current contraception (> btl)andmonogamous relationship.Endocrine symptomsFor sexual activity, patient reportsno sexual complaints (> no pain or pcb)andsexually active yes __. For menopausal symptoms, patient reportsno menopausal symptomsandnormal vaginal lubrication.Psychological symptomsFor psychological symptoms, patient reportsno depressionandno anxiety.Preventative measuresFor preventive measures, patient reportsencourage self breast examination,encourage regular exercise,encourage no tobacco use,followed with yearly pap smears (> as indicated), andneeds to schedule mammogram (> req sent). GYPSY MEZA MD [address] [place] [address], [address], [place], [address], [place] - [facility] 10/12/2017 11:19:02 8 text/html ROS as noted in the HPI 47 yo presents with a few months of irregular menses and [...] not want an exam. GYPSY MEZA MD [address] [place] [address], [address], [place], [address], [place] - [facility] 04/06/2018 15:35:04 0 text/html [facility] Annual GYNReported by PatientHistoryFor history, patient reportsno gynecologic complaints.Genitourinary symptomsFor urinary symptoms, patient reportsstress incontinence (occasional, not bothersome)but reportsno hematuria. For menstrual cycle, patient reportsnormal menses (> no imb). For vulva, patient reportsno genital lesion. For vagina, patient reportsnormal vaginal discharge.Breast symptomsFor breast, patient reportsno breast pain,no breast lump, andno nipple discharge.ContraceptionFor current contraception, patient reportssatisfied with current contraception (> btl)andmonogamous relationship.Endocrine symptomsFor sexual activity, patient reportsdecreased libidobut reportsno sexual complaints (> no pain or pcb)andsexually active yes __. For menopausal symptoms, patient reportsno menopausal symptomsandnormal vaginal lubrication.Psychological symptomsFor psychological symptoms, patient reportsanxietyandpmdd prior to menstruation (3-10 days)but reportsno depression(worsening pms< bloating and anxiety prior to menses).Preventative measuresFor preventive measures, patient reportsencourage self breast examination,encourage regular exercise,encourage no tobacco use,followed with yearly pap smears (> as indicated), andmammogram performed within the past year. GYPSY MEZA MD [address] [facility], [address] [facility], [place], [address], [facility] 01/19/2020 11:24:32 2 text/html [facility] Annual GYNReported by PatientHistoryFor history, (pt c/o severe dryness of the vagina and vaginal pain/discomfort with intercourse, states she thinks she is going through the change ; lmp 01/2021; had hot flushes for a few months and worse at night, have improved, does still feel pms symptoms occasionally but no bleeding).Genitourinary symptomsFor menstrual cycle, patient reportsperimenopausal (lmp 01/2021). For urinary symptoms, patient reportsstress incontinence (occasional, not bothersome)but reportsno hematuria. For vulva, patient reportsno genital lesion. For vagina, patient reportsnormal vaginal discharge.Breast symptomsFor breast, patient reportsno breast pain,no breast lump, andno nipple discharge.ContraceptionFor current contraception, patient reportssatisfied with current contraception (> btl)andmonogamous relationship.Endocrine symptomsFor sexual activity, patient reportssexual complaints,pain during intercourse,decreased libido, andinhibited or absent female orgasmbut reportssexually active yes __. For menopausal symptoms, patient reportshot flashesandinadequacy of lubrication of vaginal mucosa.Psychological symptomsFor psychological symptoms, patient reportsanxietybut reportsno depression.Preventative measuresFor preventive measures, patient reportsencourage self breast examination,encourage regular exercise,encourage no tobacco use (quit 2 years ago, using nicotine patch prn),followed with yearly pap smears (> as indicated),needs to schedule mammogram, andup to date on colonoscopy screening (2019 > 5 years). GYPSY MEZA MD [address] [facility], [address] [facility], [place], [address], [facility] 08/26/2021 10:28:17 4 text/html ROS as noted in the HPI 53 yo presents due to concern about a vaginal mass. Pt states she noticed it about 2 weeks ago, saw her PCP and was also having vaginal pain and LLQ pain. Her PCP looked externally per the patient and said you need to see your park superintendent. She also ordered a CT scan and [...] chills, abnormal vaginal discharge. GYPSY MEZA MD [address] [place] [address], [address], [place], [address], [place] - [facility] 01/30/2024 08:51:39 OBGyn Episode Ob Episode Information Episode Created Date Number of Fetuses Patient Bloodtype Patient rh Status Prepregnancy Weight lbs Domestic Partner Domestic Partner Phone Father Name [employer]pet Fin[employer] Supervisor Status 10/13/19 18 1 CLOSED Fetus Data First Name Last Name Admitted to NICU Weight (g) Sex Living Outcome Pediatric Complications Fetus ID Race Codes Race Delivery Type F [id number] Vaginal Delivery Garcia Calculation Initial Garcia Date [...] Domestic Partner Domestic Partner Phone Father Name Carpet Finishing Supervisor Status 10/13/19 18 1 CLOSED Fetus Data First Name Last Name Admitted to NICU Weight (g) Sex Living Outcome Pediatric Complications Fetus ID Race Codes Race Delivery Type , Spontane ous [id number] Garcia Calculation Initial Garcia Date Initial Exam [...] Domestic Partner Domestic Partner Phone Father Name Carpet Finishing Supervisor Status 10/13/19 18 1 CLOSED Fetus Data First Name Last Name Admitted to NICU Weight (g) Sex Living Outcome Pediatric Complications Fetus ID Race Codes Race Delivery Type F [id number] Vaginal Delivery Garcia Calculation Initial Garcia Date [...] Domestic Partner Domestic Partner Phone Father Name Carpet Finishing Supervisor Status 10/13/19 18 1 CLOSED Fetus Data First Name Last Name Admitted to NICU Weight (g) Sex Living Outcome Pediatric Complications Fetus ID Race Codes Race Delivery Type M [id number] Vaginal Delivery Garcia Calculation Initial Garcia Date [...] Domestic Partner Domestic Partner Phone Father Name Carpet Finishing Supervisor Status 10/13/19 18 1 CLOSED Fetus Data First Name Last Name Admitted to NICU Weight (g) Sex Living Outcome Pediatric Complications Fetus ID Race Codes Race Delivery Type , Induced [id number] Garcia Calculation Initial Garcia Date Initial Exam [...] Domestic Partner Domestic Partner Phone Father Name Carpet Finishing Supervisor Status 10/13/19 18 1 CLOSED Fetus Data First Name Last Name Admitted to NICU Weight (g) Sex Living Outcome Pediatric Complications Fetus ID Race Codes Race Delivery Type F [id number] Vaginal Delivery Garcia Calculation Initial Garcia Date [...]
--- OUTSIDE RECORDS SUMMARY | 2025-03-30 00:19 | XMS_ITS | Clinical Summary ---
Author Organization [facility] Address [address] [place] [address] Care Team Providers Care Mycology Teacher Name Role Phone Pcp, No Primary Care Provider Unavailabl e Allergies Active Allergy Reactions Criticality Noted Date Comments Chocolate Hives Medium 12/12/2017 Ibuprofen Other (See Comments) 12/12/2017 Developed an ulcer Medications aspirin-acetamin ophen-caffeine (EXCEDRIN MIGRAINE) 250-250-65 mg per tablet Take 1 tablet by mouth 4 times daily (every 6 hours) as needed for headaches. Active Active Problems Problem Noted Date Diagnosed Date Migraine with aura and witho ut status migrainosus, not intractable 12/12/2017 Tobacco abuse disorder 12/12/2017 Resolved Problems Problem Noted Date Diagnosed Date Resolved Date Routine medical exam 12/12/2017 03/ 024 Immunizations Immunization Administration Dates Next Due Pneumococcal Polysaccharide 23-Valent [...] = 0.6 oz pur e alcohol) socially Comments No Sex and Gender Information Value Date Recorded Sex Assigned at Not on file Legal Sex Female 3:33 PM EDT Gender Identity Not on file Sexual Orientation Not on file Last Filed Vital Signs Vital Sign Reading Time Taken Comments Blood Pressure 126/86 12/12/2017 3:05 PM EDT Pulse 61 12/12/2017 3:05 PM EDT Temperature 37.1 C (98.7 F) 12/12/2017 3:05 PM EDT Respiratory Rate 16 12/12/2017 3:05 PM EDT [...] - PCV) 12/12/2018 12/12/2017 Mammogram 12/11/2020 12/12/2019 Pap Smear (Ages 21-65) 08/26/2024 08/26/2021, 2019 Influenza Vaccine 01/17/2025 04/27/2021 COVID-19 Vaccine (2024- season) 2025 06/03/2021, 10/15/2020, 09/24/2020 DTaP/Tdap/Td Vaccines (2 - T d or Tdap) 12/13/2027 12/12/2017 Procedures Procedure Name Priority Date/Time Associated Diagnosis Comments THINPREP PAP(WRAP TURNER) HPV SCR RFX HPV 16,18/45 Routine 08/26/2021 12:00 AM EST MG PATI- BREAST DIAGNOSTIC BILATERAL Routine 12/12/2019 2:04 PM EDT from Last 3 Months or Most Recently Relevant to Health Maintenance Results * ThinPrep Pap(Tape Calender) HPV Scr Rfx HPV 16,18/45 (08/26/2021 12:00 AM EST) Report Report [facility] Comment: Final Gynecological Cytology Report ThinPrep Pap Test, HPV Screen, Reflex HPV Genotype SPECIMEN ADEQUACY: SATISFACTORY FOR EVALUATION; ENDOCERVICAL/TRANSFORMATION ZONE COMPONENT PRESENT. INTERPRETATION: NEGATIVE FOR INTRAEPITHELIAL LESION OR MALIGNANCY. Electronically Signed: Malik Chaparro CT (ASCP) CLINICAL INFORMATION: LMP: NG Clinical History: RTN Specimen Source: Cervix, Endocervix HPV RESULTS: HPV mRNA E6/E7 [id number] Approved: 08/27/21 Negative REF RANGE: Negative CPT Codes: 32915 ICD Codes: Z12.4 Other 08/26/2021 08/27/2021 3:5 3 AM EST Narrative [facility] - 08/31/2021 6:17 AM EDT CC: STEVEN FORMAN SLUICE TENDER, FAX ([phone] us Terri Cooper MD LAB AMB PATH/CYTO ORDERABLES Fi nal Result [facility] [address] [place] [address] * MG PATI- BREAST DIAGNOSTIC BILATERAL (12/12/2019 [...] oclock located 8 centimeters from the nipple. Sudden appearance of a painful lump a few [...] your patient to us, Regino Alicea MD [id number] (Electronically Signed - 12/12/2019 14:04) Procedure Note [...] your patient to us, Regino Alicea MD [id number] (Electronically Signed - 12/12/2019 14:04) us Katerin Brown MD IMG LEGACY PROCEDURES Cris l Result from Last 3 Months or Most Recently Relevant to Health Maintenance Insurance [facility] Care Teams Mycology Teacher Relationship Specialty Start Date End Date Pcp, X[place] PCP - General General Medicine 01/18/19
--- OUTSIDE RECORDS SUMMARY | 2025-03-30 00:19 | XMS_ITS | Encounter Summary ---
Author Organization [facility] Address [address] [place] [id number] Care Team Providers Care Agriculture Inspector Name Role Phone Lee Stallings MD Primary Care Provider [phone] Pcp, No Primary Care Provider Unavailabl e Encounter Details Date Type Department Care Team (Late st Contact Info) Description 10/12/2017 Scanned Document [address] [phone] Provider, Generic Social History Tobacco Use Types [...] on filedocumented in this encounter Care Teams Agriculture Inspector Relationship Specialty Start Date End Date Lee Stallings MD PCP - General Internal Medicine 11/27/17 01/17/19 Pcp, No PCP - General General Medicine 01/18/19 documented as of this encounter
--- OUTSIDE RECORDS SUMMARY | 2025-03-30 00:20 | XMS_ITS ---
Author Name [facility] Organization Unknown Results Test Name/Text Value Interpretation Date Range Source HIV 1+2 Ab+HIV1 p24 Ag SerPl Ql IA Negative 01/28/2025 - [facility] HBV surface Ag SerPl Ql IA Negative 01/28/2025 - [facility] HCV Ab SerPl Ql IA Negative 01/28/2025 - [facility] HBV core IgM SerPl Ql IA Negative 01/28/2025 - [facility] HAV IgM SerPl Ql IA Negative 01/28/2025 - [facility] RPR Ser Ql Nonreactive 01/28/2025 - [facility] N gonorrhoea rRNA Spec Ql Probe Negative 01/29/2025 - [facility] C trach rRNA Spec Ql Probe Negative 01/29/2025 - [facility] RBC #/area UrnS HPF 15.0 /HPF Above high normal 01/28/2025 0 - 3 [facility] Mucous Threads UrnS Ql Micro 1+ 01/28/2025 - [facility] Squamous #/area UrnS HPF 5.0 /HPF 01/28/2025 0 - 5 [facility] Bacteria #/area UrnS HPF 1+ Abnormal 01/28/2025 - [facility] WBC #/area UrnS HPF 4.0 /HPF 01/28/2025 0 - 5 [facility] pH Ur 5.5 pH 01/28/2025 5 - 8 [facility] Prot Ur Strip-mCnc Negative 01/28/2025 - [facility] Color Ur Yellow 01/28/2025 - [facility] Leukocyte esterase Ur Ql Strip Negative 01/28/2025 - [facility] Nitrite Ur Ql Negative 01/28/2025 - [facility] Sp Gr Ur 1.025 01/28/2025 1.005 - 1.03 [facility] Glucose Ur Ql Negative 01/28/2025 - [facility] Hgb Ur Ql Large Abnormal 01/28/2025 - [facility] Clarity Ur Clear 01/28/2025 - [facility] Ketones Ur-mCnc Negative 01/28/2025 - [facility] Lipase SerPl-cCnc 56.0 unit/L 01/28/2025 11 - 82 [facility] Albumin SerPl-mCnc 3.5 g/dL 01/28/2025 3.5 - 5 [facility] Anion Gap SerPl Calc-sCnc 8.0 01/28/2025 5 - 14 [facility] BUN SerPl-mCnc 13.0 mg/dL 01/28/2025 7 - 17 [facility] ALP SerPl-cCnc 93.0 unit/L 01/28/2025 34 - 104 [facility] Calcium SerPl-mCnc 8.9 mg/dL 01/28/2025 8.4 - 10.2 [facility] Potassium SerPl-sCnc 3.6 mmol/L 01/28/2025 3.5 - 5.1 [facility] BUN/Creat SerPl 16.9 01/28/2025 12 - 20 [facility]_ [facility] Creat SerPl-mCnc 0.77 mg/dL 01/28/2025 0.5 - 1 C [facility] AST SerPl-cCnc 13.0 unit/L 01/28/2025 5 - 40 [facility] Bilirub SerPl-mCnc 0.2 mg/dL Below low normal 01/28/2025 0.3 - 1 [facility] Prot SerPl-mCnc 7.3 g/dL 01/28/2025 6.4 - 8.5 [facility] ALT SerPl-cCnc 14.0 unit/L 01/28/2025 7 - 52 [facility] Sodium SerPl-sCnc 139.0 mmol/L 01/28/2025 135 - 14 5 [facility] Glucose SerPl-mCnc 99.0 mg/dL 01/28/2025 70 - 199 [facility] eGFRcr SerPlBld CKD-EPI 2020 91.0 mL/min/1.73m2 01/28/2025 - [facility] Chloride SerPl-sCnc 107.0 mmol/L 01/28/2025 98 - 107 [facility] CO2 SerPl-sCnc 24.0 mmol/L 01/28/2025 24 - 32 [facility] Monocytes NFr Bld Auto 6.4 % 01/28/2025 2 - 12 [facility] MCHC RBC Auto-EntMCnc 32.9 g/dL 01/28/2025 32 - 36 [facility] MCH RBC Qn Auto 29.0 pcg 01/28/2025 25 - 33 [facility] Monocytes # Bld Auto 0.54 K/mcL 01/28/2025 0 - 0.8 [facility] Hgb Bld-mCnc 13.5 g/dL 01/28/2025 12.5 - 16 [facility] Lymphocytes NFr Bld Auto 25.6 % 01/28/2025 20 - 48 [facility] WBC # Bld Auto 8.5 K/mcL 01/28/2025 4 - 10.5 [facility] Platelet # Bld Auto 322.0 K/mcL 01/28/2025 150 - 450 [facility] Basophils NFr Bld Auto 0.6 % 01/28/2025 0 - 2 [facility] PMV Bld Auto 9.2 FL 01/28/2025 7.4 - 11.4 [facility] Neutrophils NFr Bld Auto 65.5 % 01/28/2025 44 - 74 [facility] RBC Auto 88.2 FL 01/28/2025 78 - 100 [facility] Lymphocytes # Bld Auto 2.17 K/mcL 01/28/2025 1 - 3.2 [facility] Eosinophil NFr Bld Auto 1.8 % 01/28/2025 0 - 6 [facility] RDW RBC Auto 14.0 % 01/28/2025 12.1 - 16.2 [facility] Neutrophils # Bld Auto 5.56 K/mcL 01/28/2025 1.8 - 7.8 [facility] Basophils # Bld Auto 0.05 K/mcL 01/28/2025 0 - 0.2 [facility] Eosinophil # Bld Auto 0.15 K/mcL 01/28/2025 0 - 0.5 [facility] RBC # Bld Auto 4.65 M/mcL 01/28/2025 4.2 - 5.4 [facility] Hct VFr Bld Auto 41.0 % 01/28/2025 37 - 47 [facility] C trach rRNA Spec Ql HOLLAND+probe NOT DETECTED Normal 07/03/2024 - [facility] COMMENT Normal 07/03/2024 [facility] N gonorrhoea rRNA Spec Ql HOLLAND+probe NOT DETECTED Normal 07/03/2024 - [facility] HSV1 IgG CSF IA-aCnc TNP Normal 07/03/2024 [facility] RPR Ser Ql NON-REACTIVE Normal 07/03/2024 - [facility] T vaginalis rRNA Genital Ql Probe NOT DETECTED Normal 07/03/2024 - [facility] G vaginalis rRNA Genital Ql Probe DETECTED Abnormal 07/03/2024 - [facility] Annia rRNA Vag Ql Probe DETECTED Abnormal 07/03/2024 - [facility] HIV 1+2 Ab+HIV1 p24 Ag SerPl Ql IA NON-REACTIVE Normal 07/03/2024 - [facility] HSV2 IgG Ser IA-aCnc <0.90 Normal 07/03/2024 [facility] HSV1 IgG Ser IA-aCnc 16.4 INDEX Above high normal 07/03/2024 [facility] History of Medication Use Medication Directions Dispensed Refills Start Date End Date Stat oxyCODONE (OXY-IR) 5 mg immediate release capsule Take 1 capsule (5 mg total) by mouth every 6 (six) hours if needed for severe pain or moderate pain. Max Daily Amount: 20 mg 10/31/2024 active Diflucan 150 mg tablet Take 1 tablet every 72 hours by oral route as needed. 06/26/2024 active metronidazole 0.75 % (37.5 mg/5 gram) vaginal gel Insert 1 applicatorful every day by vaginal route at bedtime for 5 days. 06/26/2024 active amoxicillin 875 mg tablet take 1 tablet (875 mg) by oral route every 12 hours 06/03/2024 active prednisone 10 mg tablet Take 1 tablet by oral route once daily 01/11/2024 completed prednisone 10 mg tablet Take 1 tablet by oral route once daily 12/28/2023 active Nurtec ODT [address] 1 TAB ON TOP OF TONGUE,ALLOW TO DISSOLVE THEN SWALLOW ONCE NEEDED MIGRAINE-MAX 1 DOSE/DAY 11/11/2022 3 completed Nurtec ODT [address] 1 TAB ON TOP OF TONGUE,ALLOW TO DISSOLVE THEN SWALLOW ONCE NEEDED MIGRAINE-MAX 1 DOSE/DAY 11/11/2022 3 completed Vitamin D2 1,250 mcg (50,000 unit) capsule Take 1 capsule once weekly x 8 weeks 08/08/2022 3 completed Vitamin D2 1,250 mcg (50,000 unit) capsule Take 1 capsule once weekly x 8 weeks 08/08/2022 3 completed albuterol sulfate HFA 90 mcg/actuation aerosol inhaler inhale 1 - 2 puffs (90 - 180 mcg) by inhalation route every 4 hours as needed 05/10/2022 3 completed albuterol sulfate HFA 90 mcg/actuation aerosol inhaler inhale 1 - 2 puffs (90 - 180 mcg) by inhalation route every 4 hours as needed 05/10/2022 3 completed Asmanex Twisthaler 110 mcg/actuation(30 doses) breath activated inhalr inhale 2 puffs (220 mcg) by inhalation route 2 times per day 05/10/2022 3 completed Asmanex Twisthaler 110 mcg/actuation(30 doses) breath activated inhalr inhale 2 puffs (220 mcg) by inhalation route 2 times per day 05/10/2022 3 completed benzonatate 100 mg capsule take 1 capsule (100 mg) by oral route 3 times per day as needed for cough 05/10/2022 3 completed benzonatate 100 mg capsule take 1 capsule (100 mg) by oral route 3 times per day as needed for cough 05/10/2022 3 completed rizatriptan 10 mg tablet take 1 tablet (10 mg) by oral route once, may repeat at 2 hour intervals; do not exceed 30 mg in 24 hours 01/01/2021 2 completed Augmentin 875 mg-125 mg tablet take 1 tablet by oral route every 12 hours 10/30/2020 1 completed meclizine HCl (bulk) Take 1 PO ? every 8 hours for 10 days. 10/20/2020 4 completed meclizine 12.5 mg tablet take 1 tablets (25 mg) by oral route every 6 Hr prn dizziness 10/20/2020 2 completed chlorhexidine gluconate 2 % topical liquid Apply as a body wash as a single application. 07/08/2020 1 completed chlorhexidine gluconate 2 % topical liquid Apply as a body wash as a single application. 07/08/2020 1 completed doxycycline hyclate 100 mg tablet take 1 tablet (100 mg) by oral route 2 times per day 07/08/2020 1 completed doxycycline hyclate 100 mg tablet take 1 tablet (100 mg) by oral route 2 times per day 07/08/2020 1 completed mupirocin 2 % topical ointment apply a small amount to the anterior nares twice daily for 5-7 days 07/08/2020 1 completed mupirocin 2 % topical ointment apply a small amount to the anterior nares twice daily for 5-7 days 07/08/2020 1 completed Lexapro 10 mg tablet Take 1 tablet every day by oral route. 01/31/2020 2 completed Vitamin D3 125 mcg (5,000 unit) tablet 125 mcg 10/21/2019 03/31/20 2 3 completed Vitamin D3 125 mcg (5,000 unit) tablet 125 mcg 10/21/2019 03/31/20 2 3 completed Lexapro 10 mg tablet take 1 tablet (10 mg) by oral route once daily 10/21/2019 0 completed Nicoderm CQ 14 mg/24 hr daily transdermal patch Take APPLY Patch 24HR Transdermal once each day. 04/05/2019 4 completed Nicoderm CQ 14 mg/24 hr daily transdermal patch Take APPLY Patch 24HR Transdermal once each day. 04/05/2019 4 completed calcium carbonate 600 mg-vitamin D3 20 mcg (800 unit) tablet Take 1 Tablet ORAL daily. 02/15/2019 4 completed calcium carbonate 600 mg-vitamin D3 20 mcg (800 unit) tablet Take 1 Tablet ORAL daily. 02/15/2019 4 completed Nicoderm CQ 7 mg/24 hr daily transdermal patch Take APPLY Patch 24HR Transdermal once each day. 02/15/2019 1 completed Nicoderm CQ 7 mg/24 hr daily transdermal patch Take APPLY Patch 24HR Transdermal once each day. 02/15/2019 1 completed Excedrin Migraine 250 mg-250 mg-65 mg tablet Take 1-2 Tablet ORAL 4 times a day for 10 days. 02/15/2019 9 completed Excedrin Migraine 250 mg-250 mg-65 mg tablet Take 1-2 Tablet ORAL 4 times a day for 10 days. 02/15/2019 9 completed ibuprofen 800 mg tablet Take 1 tablet 3 times a day by oral route for 7 days. 04/06/2018 0 completed Yuvafem 10 mcg vaginal tablet INSERT 1 TABLET EVERY DAY BY VAGINAL ROUTE AT BEDTIME TWICE WEEKLY 4 completed azithromycin 250 mg tablet TAKE 2 TABLETS BY MOUTH TODAY, THEN TAKE 1 TABLET DAILY FOR 4 DAYS DIRECTED 4 completed azithromycin 250 mg tablet TAKE 2 TABLETS BY MOUTH TODAY, THEN TAKE 1 TABLET DAILY FOR 4 DAYS DIRECTED 4 completed amoxicillin 875 mg tablet TAKE 1 TABLET BY MOUTH EVERY 12 HOURS FOR 10 DAYS 4 completed [employer] COVID-19 Antigen Home Test kit 4 completed lorazepam 0.5 mg tablet TAKE 1 TABLET (0.5 MG) BY ORAL ROUTE ONCE PER DAY NEEDED FOR ANXIETY 4 completed lorazepam 0.5 mg tablet TAKE 1 TABLET (0.5 MG) BY ORAL ROUTE ONCE PER DAY NEEDED FOR ANXIETY 4 completed omeprazole 20 mg capsule,delayed release TAKE 1 CAPSULE BY MOUTH EVERY DAY BEFORE A MEAL 4 completed omeprazole 20 mg capsule,delayed release TAKE 1 CAPSULE BY MOUTH EVERY DAY BEFORE A MEAL 4 completed omeprazole 40 mg capsule,delayed release TAKE 1 CAPSULE BY MOUTH EVERY DAY BEFORE A MEAL 4 completed omeprazole 40 mg capsule,delayed release TAKE 1 CAPSULE BY MOUTH EVERY DAY BEFORE A MEAL 4 completed amoxicillin 875 mg-potassium clavulanate 125 mg tablet TAKE 1 TABLET BY MOUTH EVERY 12 HOURS 2 completed meclizine 12.5 mg tablet TAKE 1 TABLETS (25 MG) BY ORAL ROUTE EVERY 6 HR NEEDED FOR DIZZINESS 2 completed rizatriptan 10 mg tablet TAKE 1 TABLE BY ORAL ROUTE ONCE, MAY REPEAT AT 2 HOUR INTERVALS DO NOT EXCEED 30 MG IN 24 HOURS 2 completed penicillin V potassium 500 mg tablet 0 completed oxycodone-acetaminop hen 5 mg-325 mg tablet 8 completed amoxicillin 875 mg tablet active prednisone 10 mg tablet active fluticasone propionate 50 mcg/actuation nasal spray,suspension SPRAY 2 SPRAYS INTO EACH NOSTRIL ONCE A DAY active fluticasone propionate 50 mcg/actuation nasal spray,suspension SPRAY 2 SPRAYS INTO EACH NOSTRIL ONCE A DAY active aspirin-acetaminophe n-caffeine (Excedrin Migraine) 250-250-65 mg per tablet Take 1 tablet by mouth 1 (one) time each day. active Allergies Allergen Reaction Severity Comment Documented Date Source Statu s CHOCOLATE 01/27/[address] [facility] active IBUPROFEN GI INTOLERANCE 10/31/2024 [facility] act edwin COCOA EXTRACT RASH [facility] MOTRIN [facility] active MOTRIN IB [facility] Problems Problem Status Onset Date Problem Type Date of Resolution Source Gastroesophageal reflux disease without esophagitis active ProblemAct [facility] T Postconcussion syndrome active 2025-02-06 ProblemAct [facility] T Maxillary sinusitis active 2023-06-28 ProblemAct [facility] T Chest pain active ProblemAct [facility] T Viral disease active ProblemAct [facility] T Pruritus of vagina active 2024-06-20 ProblemAct [facility] T Polymyalgia rheumatica active 2023-12-28 ProblemAct [facility] T Bronchitis active ProblemAct [facility] T Gynecologic examination active ProblemAct [facility] T Erythrocyte sedimentation rate above reference range active ProblemAct [facility] T Vitamin D deficiency active ProblemAct [facility] T Disorder of skin appendage active ProblemAct [facility] T Left lower quadrant pain active 2024-01-11 ProblemAct [facility] T Anxiety disorder active ProblemAct EN [facility] T Constipation active ProblemAct [facility] T Dizziness and giddiness active ProblemAct [facility] T Labyrinthitis active ProblemAct [facility] T Active immunization active ProblemAct [facility] T Migraine with aura active ProblemAct [facility] T Chronic cough active ProblemAct [facility] T Nicotine dependence active ProblemAct [facility] T Acute sinusitis active ProblemAct [facility] T Hyperlipidemia active ProblemAct [facility] T Body mass index 30+ - obesity active ProblemAct [facility] T Headache active ProblemAct [facility] T DUB (dysfunctional uterine bleeding) active EncounterDiagnosisAct C [facility] Gastroesophageal reflux disease without esophagitis active ProblemAct [...] [facility] Acute sinusitis active ProblemAct [facility] Immunizations Vaccine Date Source Lot Number Status zoster vaccine subunit 08/04/2022 [facility] [id number] completed zoster vaccine subunit 08/04/2022 [facility] [id number] completed Influenza, injectable, quadr ivalent, preservative free 05/24/2022 [facility] [id number] completed Influenza, injectable, quadr ivalent, preservative free 05/24/2022 [facility] [id number] completed SARS-COV-2 (COVID-19) vaccin e, mRNA, spike protein, LNP, preservative free, 30 mcg/0.3mL dose, say-sucrose formulation 11/28/2021 [facility] [id number] completed [facility] (ages 12 & older) MAGED S-CoV-2 COVID-19, mRNA, LNP-S, say-sucrose, preservative free [facility]28/20[facility] zoster vaccine subunit 07/30/2021 [facility] [id number] completed zoster vaccine subunit 07/30/2021 [facility] [id number] completed SARS-COV-2 (COVID-19) vaccin e, mRNA, spike protein, LNP, preservative free, 30 mcg/0.3mL dose 06/03/2021 [facility] [id number] completed Pfizer SARS-CoV-2 COVID-19, mRNA, LNP-S, preservative free 06/03/2021 [facility] completed Influenza, injectable, quadr ivalent, preservative free 04/27/2021 [facility] [id number] completed Influenza, injectable, quadr ivalent, preservative free 04/27/2021 [facility] [id number] completed SARS-COV-2 (COVID-19) vaccin e, mRNA, spike protein, LNP, preservative free, 30 mcg/0.3mL dose 10/15/2020 [facility] [id number] completed SARS-COV-2 (COVID-19) vaccin e, mRNA, spike protein, LNP, preservative free, 30 mcg/0.3mL dose 10/15/2020 [facility] [id number] completed SARS-COV-2 (COVID-19) vaccin e, mRNA, spike protein, LNP, preservative free, 30 mcg/0.3mL dose 09/24/2020 [facility] [id number] completed SARS-COV-2 (COVID-19) vaccin e, mRNA, spike protein, LNP, preservative free, 30 mcg/0.3mL dose 09/24/2020 [facility] [id number] completed hepatitis B vaccine, unspeci fied formulation 08/25/2020 [facility] completed hepatitis B vaccine, unspeci fied formulation 08/25/2020 [facility] completed hepatitis B vaccine, unspeci fied formulation 02/25/2020 [facility] completed hepatitis B vaccine, unspeci fied formulation 02/25/2020 [facility] completed hepatitis B vaccine, unspeci fied formulation 01/23/2020 [facility] completed hepatitis B vaccine, unspeci fied formulation 01/23/2020 [facility] completed tuberculin skin test; purifi ed protein derivative solution, intradermal 01/09/2020 [facility] completed tuberculin skin test; purifi ed protein derivative solution, intradermal 01/09/2020 [facility] completed tetanus toxoid, reduced diph theria toxoid, and acellular pertussis vaccine, adsorbed 12/12/2017 [facility] completed tetanus toxoid, reduced diph theria toxoid, and acellular pertussis vaccine, adsorbed 12/12/2017 [facility] completed Encounters Encounter Type Encounter Reason Primary Diagnosis [facility] Date [facility]25 [facility] Emergency Abdominal Pain Other specified abnormal uterine and vaginal bleeding [facility] 01/27/2025 [facility] 12/10/2024 [facility] 11/05/2024 Emergency fever abscess Cellulitis of buttock [facility] 10/31/2024 [facility] 10[facility]01/2024 [facility] 09[facility]26/2024 [facility] 09/06/2024 [facility] 08[facility]27/2024 [facility] 08[facility]12/2024 [facility] 07/23/2024 [facility] 06[facility]21/2024 [facility] 06[facility]21/2024 [facility] 06[facility]20/2024 [facility] 06/18/2024 [facility] 04/03/2024 [facility] 02/28/2024 Ambulatory [facility] operator exam (general) (routine) w/o abn findings [facility] operator exam (general) (routine) w/o abn findings [facility] 01/29/2024 Ambulatory [facility] [employer] operator exam (general) (routine) w/o abn findings [facility] [employer] operator exam (general) (routine) w/o abn findings [facility] 01/29/2024 Ambulatory [facility] 01/25/2024 Ambulatory [facility] 01/24/2024 Ambulatory [facility] 12[facility]29/2023 Ambulatory [facility] 12[facility]28/2023 Ambulatory [facility] 12/28/2023 Ambulatory [facility] 10[facility]30/2023 [facility] 10[facility]17/2023 Ambulatory [facility] 09/13/2023 Ambulatory [facility] 08[facility]30/2023 Ambulatory [facility] 08[facility]30/2023 Ambulatory [facility] 08/25/2023 Ambulatory [facility] 03/31/2023 Ambulatory [facility] 08/26/2021 [facility] 04/27/2021 Care Team Organization Name Specialty Phone Email Start Date End Da te [facility] [employer]ACH[employer]TER Primary Care [facility] [facility] Primary Care 5 [facility] 10/30/2024 [facility] 08/28/2024 [facility] 05/04/2023 [facility] 09/02/2021 [facility] 08/26/202108/26 [facility] PCP,No Primary Care 04/27/2021 02/05/2024 [facility] NO PCP Primary Care 04/27/2021 04/27/2021 [facility] Sona Holloway Primary Care 01/12/2021 01/12/2021
--- OUTSIDE RECORDS SUMMARY | 2025-03-30 00:20 | XMS_ITS | Data Portability ---
Author Organization [place] - [facility], [facility] Address [address] [place] [address] Care Team Providers Care Director Of Search Engine Optimization Name Role Phone DICKSON STEVEN Primary Care Provider [phone] GYPSY MEZA Vegetable Farmer LUZ MUKHERJEE Palliative Care Coordinator [phone] Assessment No assessment recorded. Plan of Treatment Reminders Order Date Submit Date Provider Last Modified By Organization Details Last Modified Time Details Appointments None recorded. Lab urinalysis , dipstick 2024 025 [email or web address] [facility], [address] [facility], [place], [address], 5 09:32:33 HIV (1+2) Ab screen, serum 2024 025 [facility], [address], [address], [place], [address], 5 11:36:06 RPR (rapid plasma reagin), serum 2024 025 CARYL [facility], [address], [address], [place], [address], 5 04:45:51 CT + NG DNA, PCR, urine 2024 025 [email or web address] [facility], [address], [address], [place], [address], 5 11:36:06 HSV 1+2 IgG Ab, CSF 2024 025 [facility], [address], [address], [place], [address], 5 04:45:50 bacterial vaginosis + vaginitis panel, vaginal 2024 025 [facility], [address], [address], [place], [address], 5 04:45:50 rapid strep group A, throat [address], [address], [place], [address], 4 14:01:20 rapid SARS CoV 2 Ag, QL IA, respirator y specimen [address], [address], [place], [address], 4 14:01:20 rapid flu (A+B) [address], [address], [place], [address], 4 14:01:20 erythrocyt e sedimentat ion rate by westergren method 2023 024 [facility], [address], [address], [place], [address], 4 06:27:39 C-reactive protein, quantitati ve, serum or plasma 2023 024 [facility], [address], [address], [place], [address], 4 06:27:41 CK (creatine kinase), total, serum 2023 [facility], [address] [place] [address], [address], [place], [address], 4 06:27:39 CMP, serum or plasma 2023 [facility], [address] [facility] [place] [address], [address], [place], [address], 4 06:27:38 CBC w/ auto diff 2023 [facility], [address] [facility] [address] [place] [address], [address], [place], [address], 4 06:27:40 rf (rheumatoi d factor), serum 2023 [facility], [address] [facility] [place] [address], [address], [place], [address], 4 06:27:40 vitamin B12, serum 2023 [facility], [address] [facility] [address] [place] [address], [address], [place], [address], 4 06:27:42 ccp (cyclic citrullina manasa peptide) igg, serum 2023 [facility], [address] [facility] [place] [address], [address], [place], [address], 4 06:27:[address] referral - vaginal mass, vaginal pressure, LLQ pain, lower abdominal bloating 2023 rani Meza, [address], [address], [place], [address], 4 14:52:02 Procedures None recorded. Surgeries None recorded. Imaging CT, abdomen + pelvis, w/ contrast - LLQ pain x 3 days with pelvic bloating, vaginal mass on exam 2023 024 [facility] [address] [facility], [address], [place], [address], 4 12:09:46 Medication Orders amoxicilli n 875 mg tablet 2023 024 [id number], [address] [place], [address], 5 08:14:30 prednisone 10 mg tablet 2023 024 [id number], [address] [place], [address], 4 14:34:47 prednisone 10 mg tablet 2023 024 [id number], [address] [place], [address], 4 09:41:56 Patient TargetsNo targets recorded. Patient Instructions Encounter Date Encounter Id Patient Instructions Last Modified By Organization Details Last Modified Time 06/03/2024 [id number] Advised the patient drink lots of liquids inhale steam Tylenol or ibuprofen OTC cough decongestant combination as needed. 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 vaginal mass, vaginal pressure, LLQ pain, lower abdominal bloating Referring Physician: Steven Drew, Family Medicine, Encounter Date: 01/11/2024 Results Created Date Observation Date Name Description Value Unit Range Abnormal Flag Note LastModifiedBy Organization Detail LastModifiedTime 12/28/1901/01/2024 COMPR EHENS RADHAMES METAB OLIC PANEL glucose 83 mg/dL 65-99 normal Fasti ng refer ence inter rory Not Available [facility] [place] [facility] [address], [place], [address], 01/01/2024 06:27:38 12/28/19 01/01/2024 COMPR EHENS RADHAMES METAB OLIC PANEL urea nitrogen (BUN) 18 mg/dL 7-25 normal Not Available [facility] [address] [place], [place], [address], 01/01/2024 06:27:38 12/28/19 24 01/01/2024 COMPR EHENS RADHAMES METAB OLIC PANEL creatinine 0.95 mg/dL 0.50-1 .03 normal Not Available [facility] [address] [place], [place], [address], 01/01/2024 06:27:38 12/28/19 24 01/01/2024 COMPR EHENS RADHAMES METAB OLIC PANEL eGFR 71 mL/mi n/1.7 3m2 > or = 60 normal Not Available [facility] [address] [place], [place], [address], 01/01/2024 06:27:38 12/28/19 24 01/01/2024 COMPR EHENS RADHAMES METAB OLIC PANEL BUN/creatini ne ratio SEE NOTE: (calc ) 6-22 Not Repor manasa: BUN and Creat inine are withi n refer ence range . Not Available [facility] [address] [place], [place], [address], 01/01/2024 06:27:38 12/28/19 24 01/01/2024 COMPR EHENS RADHAMES METAB OLIC PANEL sodium 138 mmol/ L 135-14 6 normal Not Available [facility] [address], [place], [address], 01/01/2024 06:27:38 12/28/19 24 01/01/2024 COMPR EHENS RADHAMES METAB OLIC PANEL potassium 4.5 mmol/ L 3.5-5. 3 normal Not Available [facility] [address] [place], [place], [address], 01/01/2024 06:27:38 12/28/19 24 01/01/2024 COMPR EHENS RADHAMES METAB OLIC PANEL chloride 107 mmol/ L 98-110 normal Not Available [facility] [place] [facility] [address], [place], [address], 01/01/2024 06:27:38 12/28/19 24 01/01/2024 COMPR EHENS RADHAMES METAB OLIC PANEL carbon dioxide 24 mmol/ L 20-32 normal Not Available [facility] [place] [facility] [address], [place], [address], 01/01/2024 06:27:38 12/28/19 24 01/01/2024 COMPR EHENS RADHAMES METAB OLIC PANEL calcium 9.5 mg/dL 8.6-10 .4 normal Not Available [facility] [place] [facility] [address], [place], [address], 01/01/2024 06:27:38 12/28/19 24 01/01/2024 COMPR EHENS RADHAMES METAB OLIC PANEL protein, total 7.2 g/dL 6.1-8. 1 normal Not Available [facility] [address], [place], [address], 01/01/2024 06:27:38 12/28/19 24 01/01/2024 COMPR EHENS RADHAMES METAB OLIC PANEL albumin 3.9 g/dL 3.6-5. 1 normal Not Available [facility] [address], [place], [address], 01/01/2024 06:27:38 12/28/19 24 01/01/2024 COMPR EHENS RADHAMES METAB OLIC PANEL globulin 3.3 g/dL_ (calc ) 1.9-3. 7 normal Not Available [facility] [address], [place], [address], 01/01/2024 06:27:38 12/28/19 24 01/01/2024 COMPR EHENS RADHAMES METAB OLIC PANEL albumin/glob ulin ratio 1.2 (calc ) 1.0-2. 5 normal Not Available [facility] [address], [place], [address], 01/01/2024 06:27:38 12/28/19 24 01/01/2024 COMPR EHENS RADHAMES METAB OLIC PANEL bilirubin, total 0.2 mg/dL 0.2-1. 2 normal Not Available [facility] [address], [place], [address], 01/01/2024 06:27:38 12/28/19 24 01/01/2024 COMPR EHENS RADHAMES METAB OLIC PANEL alkaline phosphatase 77 U/L 37-153 normal Not Available [facility] [address], [place], [address], 01/01/2024 06:27:38 12/28/19 24 01/01/2024 COMPR EHENS RADHAMES METAB OLIC PANEL AST 21 U/L 10-35 normal Not Available [facility] [address], [place], [address], 01/01/2024 06:27:38 12/28/19 24 01/01/2024 COMPR EHENS RADHAMES METAB OLIC PANEL ALT 32 U/L 6-29 high Not Available [facility] [address], [place], [address], 01/01/2024 06:27:38 12/28/19 24 01/01/2024 CREAT INE KINAS E, TOTAL creatine kinase, total 56 U/L 29-143 normal Not Available [facility] [address], [place], [address], 01/01/2024 06:27:39 12/28/19 24 01/01/2024 SED RATE BY MODIF IED WESTE RGREN sed rate by modified westergren 14 mm/h < or = 30 normal Not Available [facility] [place] [facility] [address], [place], [address], 01/01/2024 06:27:39 12/28/19 24 01/01/2024 CBC (INCL UDES DIFF/ PLT) white blood cell count 5.9 thous and/u L 3.8-10 .8 normal Not Available [facility] [place] [facility] [address], [place], [address], 01/01/2024 06:27:40 12/28/19 24 01/01/2024 CBC (INCL UDES DIFF/ PLT) red blood cell count 5.11 shagufta on/uL 3.80-5 .10 high Not Available [facility] [place] [facility] [address], [place], [address], 01/01/2024 06:27:40 12/28/19 24 01/01/2024 CBC (INCL UDES DIFF/ PLT) hemoglobin 14.3 g/dL 11.7-1 5.5 normal Not Available [facility] [place] [facility] [address], [place], [address], 01/01/2024 06:27:40 12/28/19 24 01/01/2024 CBC (INCL UDES DIFF/ PLT) hematocrit 44.5 % 35.0-4 5.0 normal Not Available [facility] [place] [facility] [address], [place], [address], 01/01/2024 06:27:40 12/28/19 24 01/01/2024 CBC (INCL UDES DIFF/ PLT) MCV 87.1 fL 80.0-1 00.0 normal Not Available [facility] [place] [facility] [address], [place], [address], 01/01/2024 06:27:40 12/28/19 24 01/01/2024 CBC (INCL UDES DIFF/ PLT) MCH 28.0 pg 27.0-3 3.0 normal Not Available [facility] [place] [facility] [address], [place], [address], 01/01/2024 06:27:40 12/28/19 24 01/01/2024 CBC (INCL UDES DIFF/ PLT) MCHC 32.1 g/dL 32.0-3 6.0 normal Not Available [facility] [address], [place], [address], 01/01/2024 06:27:40 12/28/19 24 01/01/2024 CBC (INCL UDES DIFF/ PLT) RDW 13.2 % 11.0-1 5.0 normal Not Available [facility] [place] [facility] [address], [place], [address], 01/01/2024 06:27:40 12/28/19 24 01/01/2024 CBC (INCL UDES DIFF/ PLT) platelet count 277 thous and/u L 140-40 0 normal Not Available [facility] [place] [facility] [address], [place], [address], 01/01/2024 06:27:40 12/28/19 24 01/01/2024 CBC (INCL UDES DIFF/ PLT) MPV 10.7 fL 7.5-12 .5 normal Not Available [facility] [place] [facility] [address], [place], [address], 01/01/2024 06:27:40 12/28/19 24 01/01/2024 CBC (INCL UDES DIFF/ PLT) absolute neutrophils 3086 cells /uL 1500-7 800 normal Not Available [facility] [place] [facility] [address], [place], [address], 01/01/2024 06:27:40 12/28/19 24 01/01/2024 CBC (INCL UDES DIFF/ PLT) absolute lymphocytes 2030 cells /uL 850-39 00 normal Not Available [facility] [place] [facility] [address], [place], [address], 01/01/2024 06:27:40 12/28/19 24 01/01/2024 CBC (INCL UDES DIFF/ PLT) absolute monocytes 413 cells /uL 200-95 0 normal Not Available [facility] [place] [facility] [address], [place], [address], 01/01/2024 06:27:40 12/28/19 24 01/01/2024 CBC (INCL UDES DIFF/ PLT) absolute eosinophils 330 cells /uL 15-500 normal Not Available [facility] [place] [facility] [address], [place], [address], 01/01/2024 06:27:40 12/28/19 24 01/01/2024 CBC (INCL UDES DIFF/ PLT) absolute basophils 41 cells /uL 0-200 normal Not Available [facility] [place] [facility] [address], [place], [address], 01/01/2024 06:27:40 12/28/19 24 01/01/2024 CBC (INCL UDES DIFF/ PLT) neutrophils 52.3 % normal Not Available [facility] [place] [facility] [address], [place], [address], 01/01/2024 06:27:40 12/28/19 24 01/01/2024 CBC (INCL UDES DIFF/ PLT) lymphocytes 34.4 % normal Not Available [facility] [place] [facility] [address], [place], [address], 01/01/2024 06:27:40 12/28/19 24 01/01/2024 CBC (INCL UDES DIFF/ PLT) monocytes 7.0 % normal Not Available [facility] [address], [place], [address], 01/01/2024 06:27:40 12/28/19 24 01/01/2024 CBC (INCL UDES DIFF/ PLT) eosinophils 5.6 % normal Not Available [facility] [place] [facility] [address], [place], [address], 01/01/2024 06:27:40 12/28/19 24 01/01/2024 CBC (INCL UDES DIFF/ PLT) basophils 0.7 % normal Not Available [facility] [address], [place], [address], 01/01/2024 06:27:40 12/28/19 24 01/01/2024 RHEUM ATOID FACTO R rheumatoid factor <10 IU/mL <14 normal Not Available [facility] [address], [place], [address], 01/01/2024 06:27:40 12/28/19 24 01/01/2024 C-TYSHAWN CTIVE PROTE IN C-reactive protein 9.3 mg/L <8.0 high Not Available [facility] [address], [place], [address], 01/01/2024 06:27:41 12/28/1901/01/2024 CYCLI C CITRU LLINA MANASA PEPTI DE (CCP) AB (IGG) cyclic citrullinate d peptide (ccp) Ab (IgG) <16 units normal Refer ence Range Negat radhames: <20 Weak Posit radhames: 20-39 Moder ate Posit radhames: 40-59 Stron g Posit radhames: >59 Not Available [facility] [address], [place], [address], 01/01/2024 06:27:41 12/28/19 24 01/01/2024 VITAM IN B12 vitamin B12 416 pg/mL 200-11 00 normal Not Available [facility] [address], [place], [address], 01/01/2024 06:27:42 06/03/20 24 06/03/2024 rapid flu (A+B) Flu A negati ve Not Available [facility] [address], [place], [address], 06/03/2024 13:50:37 06/03/20 24 06/03/2024 rapid flu (A+B) Flu B negati ve Not Available [facility] [address], [place], [address], 06/03/2024 13:50:37 06/03/20 24 06/03/2024 rapid SARS CoV 2 Ag, QL IA, respi rator y speci men rapid SARS CoV 2 Ag, QL IA, respiratory specimen negati ve Not Available [facility] [address] [facility] [facility], [place], [address], 06/03/2024 13:50:02 06/03/20 24 06/03/2024 rapid strep group A, throa t Strep negati ve Not Available [facility] [address], [place], [address], 06/03/2024 13:41:50 06/20/19 25 06/26/2024 HIV 1/2 ANTIG EN/AN TIBOD Y,FOU RTH GENER ATION W/RFL HIV Ag/Ab, 4TH gen NON-RE ACTIVE non-re active normal HIV-1 antig en and HIV-1 /HIV- 2 antib odies were not detec manasa. There is no labor atory evide nce of HIV infec tion. PLEAS E NOTE: This infor magalys tapia has been discl osed to you from [...] matio n pleas e refer to http: //[facility] catjenae n.que stdia gnost ics.c om/fa q/FAQ 106 (This link is being provi ded for infor matio nal/ educa kristen l purpo ses only. ) The perfo rmanc e of this assay has not been clini wilder valid ated in patie nts less than 2 years old. Not Available [facility] [place] [facility] [address], [address], 06/26/2024 04:45:49 06/20/19 25 06/26/2024 BV/VA GINIT IS PANEL DNA PROBE trichomonas: NOT DETECT ED not detect ed normal Not Available [facility] [address], [address], 06/26/2024 04:45:50 06/20/19 25 06/26/2024 BV/VA GINIT IS PANEL DNA PROBE gardnerella: DETECT ED not detect ed abnormal Incre ased level s of G. vagin leigh may not be signi fican t in the absen ce of signs and sympt oms of bacte rial vagin osis. Not Available [facility] [place] [facility] [address], [address], 06/26/2024 04:45:50 06/20/19 25 06/26/2024 BV/VA GINIT IS PANEL DNA PROBE greg: DETECT ED not detect ed abnormal Not Available [facility] [address] [place], [address], 06/26/2024 04:45:50 06/20/19 25 06/26/2024 HERPE S SIMPL EX VIRUS 1/2 (IGG) TYPE SPECI F AB,CS F hsv 1 IgG index: TNP TEST NOT PERFO RMED No suita ble speci men recei bonita. Narendra gaona w the test requi remen ts at testd irect ory.q uestd iagno stics .com Not Available [facility] [place] [facility] [address], [address], 06/26/2024 04:45:50 06/20/19 25 06/26/2024 CHLAM YDIA/ N. GONOR RHOEA E RNA, TMA, UROGE NITAL chlamydia trachomatis RNA, tma, urogenital NOT DETECT ED not detect ed normal Not Available [facility] [place] [facility] [address], [place], [address], 06/26/2024 04:45:51 06/20/19 25 06/26/2024 CHLAM YDIA/ N. GONOR RHOEA E RNA, TMA, UROGE NITAL neisseria gonorrhoeae RNA, tma, urogenital NOT DETECT ED not detect ed normal Not Available [facility] [place] [facility] [address], [address], 06/26/2024 04:45:51 06/20/19 25 06/26/2024 CHLAM YDIA/ N. GONOR RHOEA E RNA, [...] negrita purpo ses. For addit ional infor narendra garcia e refer to https ://ed kathrynati on.qu james [employer]. FanBoom/f aq/FA Q154 (This link is being provi ded for nicky tapia/ mauro stern purpo ses only. ) Not Available [facility] [place] [facility] [address], [address], 06/26/2024 04:45:51 06/20/1906/26/2024 RPR (DX) W/REF L TITER AND T. PALLI DUM AB, IA RPR (DX) w/refl titer and confirmatory testing NON-RE ACTIVE non-re active normal No labor atory evide nce of syphi lis. If recen t expos ure is suspe cted, submi t a new sampl e in 2-4 weeks . Not Available [facility] [place] [facility] [address], [address], 06/26/2024 04:45:51 06/20/19 25 07/02/2024 HSV 1/2 IGG, W/REF L HSV2 INHIB ITION hsv 1 IgG, type specific Ab 16.40 index high Not Available [facility] [place] [facility] [address], [address], 07/02/2024 22:09:34 06/20/19 25 07/02/2024 HSV 1/2 [...] ocal, the assay shoul d be repea manasa in 4-6 weeks . The perfo rmanc e evangelista cteri stics of the assay have not been estab lishe d for pedia tric popul ation s, immun ocomp romis ed patie nts, or neona vince scree vini. For addit ional infor narendra garcia e refer to http: //[facility] kaylah tapia.Que stDia gnost ics.c om/fa q/FAQ 118 (This link is being provi ded for infor magalys nal/ educa kristen l purpo ses only) . Not Available [facility] [address] [place] [address], [place], [address], 07/02/2024 22:09:34 06/20/19 25 06/20/2024 urina lysis , dipst ick Glucose Negati ve Not Available [address], [place], [address], 06/20/2024 08:15:44 06/20/19 25 06/20/2024 urina lysis , dipst ick Leukocytes Negati ve Not Available [facility] [address], [place], [address], 06/20/2024 08:15:44 06/20/19 25 06/20/2024 urina lysis , dipst ick Nitrate Negati ve Not Available [address], [address], 06/20/2024 08:15:44 06/20/19 25 06/20/2024 urina lysis , dipst ick Urobilinogen Negati ve Not Available [address], [place], [address], 06/20/2024 08:15:44 06/20/19 25 06/20/2024 urina lysis , dipst ick Protein Negati ve Not Available [facility] [address], [place], [address], 06/20/2024 08:15:44 06/20/19 25 06/20/2024 urina lysis , dipst ick pH 6.0 Not Available [facility] [address], [place], [address], 06/20/2024 08:15:44 06/20/19 25 06/20/2024 urina lysis , dipst ick Blood Negati ve Not Available [facility] [address], [place], [address], 06/20/2024 08:15:44 06/20/19 25 06/20/2024 urina lysis , dipst ick Specific [place] 1.025 Not Available [facility] [address], [place], [address], 06/20/2024 08:15:44 06/20/19 25 06/20/2024 urina lysis , dipst ick Ketone Negati ve Not Available [facility] [address], [place], [address], 06/20/2024 08:15:44 06/20/19 25 06/20/2024 urina lysis , dipst ick Bilirubin Negati ve Not Available [facility] [address] [address], [place], [address], 06/20/2024 08:15:44 01/28/20 25 01/27/2025 RAPID PLASM A REAGI N WITH REFLE X TO TITER AND TREPO NEMA PALLI DUM ANTIB FREDDY RPR Nonrea ctive nonrea ctive Not Available [facility] [address], [place], [address], 01/28/2025 12:43:35 01/28/20 25 01/27/2025 RAPID PLASM A REAGI N WITH REFLE X TO TITER AND TREPO NEMA PALLI DUM ANTIB FREDDY note See Report [facility], [address] [facility], Staff ord Sheron , [place] [id number] Not Available [facility] Dept [address] [place] [address] [place], [address], 01/28/2025 12:43:35 01/28/2001/27/2025 HEPAT ITIS PANEL , ACUTE hepatitis B surface Ag Negati ve negati ve Not Available [facility] Dept [address] [place] [address] [place], [address], 01/28/2025 13:19:49 01/28/20 25 01/27/2025 HEPAT ITIS PANEL , ACUTE hepatitis A antibody IgM Negati ve negati ve Not Available [facility] Dept [address] [place] [address] [place], [address], 01/28/2025 13:19:49 01/28/20 25 01/27/2025 HEPAT ITIS PANEL , ACUTE hep B core IgM Negati ve negati ve Not Available [facility] [address] [place] [address], [place], [address], 01/28/2025 13:19:49 01/28/20 25 01/27/2025 HEPAT ITIS PANEL , ACUTE hepatitis C antibody Negati ve negati ve Not Available [facility] Dept [address] [place] [address] [place], [address], 01/28/2025 13:19:49 01/28/20 25 01/27/2025 HEPAT ITIS PANEL , ACUTE note See Report [facility], [address] [facility], Staff ord Sheron , [place] [phone] Not Available [facility] Dept [address] [place] [address], [address], 01/28/2025 13:19:49 01/28/20 25 01/27/2025 HIV 1, 2 ANTIB FREDDY, P24 ANTIG EN WITH REFLE X TO DIFFE RENTI ATION HIV combo Ab/Ag Negati ve negati ve Not Available [facility] [address] [place] [address], [address], 01/28/2025 13:19:50 01/28/20 25 01/27/2025 HIV 1, 2 ANTIB FREDDY, P24 ANTIG EN WITH REFLE X TO DIFFE RENTI ATION note See Report [facility], [address] [facility], Staff ord Sheron [place], [place] [phone] [facility] [address] [place] [address], [address], 01/28/2025 13:19:50 01/28/20 25 01/27/2025 CHLAM YDIA TRACH OMATI S AND NEISS ERIA GONOR RHOEA E MOLEC ULAR STUDY N. gonorrhoeae, RNA probe Negati ve negati ve Not Available [facility] [address] [place] [address], [address], 01/29/2025 04:56:07 01/28/20 25 01/27/2025 CHLAM YDIA TRACH OMATI S AND NEISS ERIA GONOR RHOEA E MOLEC ULAR STUDY chlamydia, RNA probe Negati ve negati ve Not Available [facility] [address] [place] [address], [address], 01/29/2025 04:56:07 01/28/20 25 01/27/2025 CHLAM YDIA TRACH OMATI S AND NEISS ERIA GONOR RHOEA E MOLEC ULAR STUDY note [facility], [address] [facility], Staff ord Sheron ann, [place] [phone] [facility] Dept [address] [place] [address], [place], [address], 01/29/2025 04:56:07 01/28/2001/27/2025 CULTU RE URINE culture, urine No growth Not Available [facility] [address] [place], [address], 01/29/2025 07:19:19 01/28/20 25 01/27/2025 CULTU RE URINE note [facility], [address], Staff ord Sheron ann, [place] [address] [facility] [address] [place], [address], 01/29/2025 07:19:19 04/04/20 24 03/07/2023 imagi ng/di agnos tic resul t No observ ation record ed. [email or web address] Not Available 2023 18:53:53 04/04/20 24 03/07/2023 imagi ng/di agnos tic resul t No observ ation record ed. [email or web address] Not Available 2023 18:53:54 04/04/20 24 04/22/2021 imagi ng/di agnos tic resul t No observ ation record ed. [email or web address] Not Available 2023 18:53:54 04/04/20 24 01/01/2021 elect rocar diogr am No observ ation record ed. [email or web address] Not Available 2023 18:54:01 04/04/20 24 03/07/2023 imagi ng/di agnos tic resul t No observ ation record ed. [email or web address] Not Available 2023 18:54:02 04/04/20 24 08/04/2022 elect rocar diogr am No observ ation record ed. [email or web address] Not Available 2023 18:54:04 04/04/20 24 03/07/2023 imagi ng/di agnos tic resul t No observ ation record ed. [email or web address] Not Available 2023 18:54:04 11/01/19 25 10/31/2024 ED provi katty notes No observ ation record ed. [email or web address] [facility] [address], [place], [address], 10/31/2024 05:41:27 Result Notes None recorded. Problems Name Problem SNOMED Code Status Onset Date Resolution Date Notes Provider Name and Address Organization Details Recorded Time Active immunizatio n Active Problem Code: Z23; Problem Code Type: ICD-10; Not Available [facility] 3 03:16:01 Labyrinthit is 83197476 Active Problem Code: H83.01; Problem Code Type: ICD-10; Not Available [facility] 3 03:16:01 Adult health examination Active Problem Code: Z00.00; Problem Code Type: ICD-10; [address], [place], [address] , [facility] 4 16:17:43 Body mass index 30+ - obesity 716013303 Active Problem Code: Z68.30; Problem Code Type: ICD-10; Not Available [facility] 3 03:16:01 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 Problem Code: E78.5; Problem Code Type: ICD-10; [address], [place], [address] , [employer] 4 16:17:43 Chronic cough 84673393 Active Problem Code: R05.3; Problem Code Type: ICD-10; Not Available [facility] 3 03:16:02 Gastroesoph ageal reflux disease without esophagitis 574640007 Active Problem Code: K21.9; Problem Code Type: ICD-10; [address], [place], [address] , [place] 4 16:17:43 Dizziness and giddiness 241443989 Active Problem Code: R42; Problem Code Type: ICD-10; Not Available [facility] 3 03:16:02 Migraine with aura 2689191 Active Problem Code: G43.109; Problem Code Type: ICD-10; Steven Drew APRN [address] [facility], [place], [address] , [facility] 4 16:17:43 Vitamin D deficiency 74521132 Active Problem Code: E55.9; Problem Code Type: ICD-10; Steven Drew APRN [address] [facility], [place], [address] , [facility] 4 16:17:43 Anxiety disorder 497593555 Active Problem Code: F41.9; Problem Code Type: ICD-10; Not Available [facility] 3 03:16:02 Constipatio n 59006603 Active Problem Code: K59.00; Problem Code Type: ICD-10; [address] [facility], [place], [address] , [facility] 4 16:17:43 Acute sinusitis 55187456 Active Problem Code: J01.90; Problem Code Type: ICD-10; Not Available [facility] 3 03:16:02 Bronchitis 71046470 Active Problem Code: J40; Problem Code Type: ICD-10; Not Available [facility] 3 03:16:03 Gynecologic examination Active Problem Code: Z01.419; Problem Code Type: ICD-10; Not Available [facility] 3 03:16:03 Disorder of skin appendage 199965306 Active Problem Code: L73.9; Problem Code Type: ICD-10; Not Available [facility] 3 03:16:03 Headache 02145860 Active Problem Code: R51.9; Problem Code Type: ICD-10; Steven Drew APRN [address] [facility], [place], [address] , [facility] 4 16:17:43 Viral disease 57998253 Active Problem Code: B34.9;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
--- NOTE | 2025-03-30 02:30 | ED.GENADULT ---
HPI - General Adult General Chief complaint: Skin/Abscess/Foreign Body Stated complaint: insect bite Time Seen by Provider: 03/30/25 02:04 Source: patient Limitations: no limitations History of Present Illness ED Provider: Daniela Gomez PA-C HPI narrative: 54-year-old female presents with potential insect bike to posterior right thigh. Patient states she was at work sitting in a chair, when she felt something pinched the backside of her right leg. Since, she has developed a tender swelling. Denies fever denies drainage from the site. Related Data Previous Rx's ?Medication ?Instructions ?Recorded methocarbamol 750 mg tablet 750 mg PO Q8H PRN pain, moderate 08/12/24 #10 tabs methylprednisolone 4 mg tablets in 4 mg PO QAM #1 ea 08/12/24 a dose pack (Medrol (Jesse)) acetaminophen 500 mg tablet 500 mg PO Q6H PRN fever or pain 01/25/25 #20 tabs meclizine 25 mg tablet 25 mg PO TID PRN dizziness #14 tabs 01/25/25 doxycycline hyclate 100 mg capsule 100 mg PO BID #13 caps 03/30/25 Allergies Allergy/AdvReac Type Severity Reaction Status Date / Time chocolate Allergy Hives Verified 03/29/25 23:38 ibuprofen (From Motrin) Allergy Gastrointestinal Verified 03/29/25 23:38 Hemorrhage Review of Systems Review of Systems: Yes all other systems are reviewed and are negative Constitutional: Constitutional: Denies fatigue and Denies fever(s) Musculoskeletal: Musculoskeletal: Denies arthralgias and Denies joint swelling Integumentary/Breasts: Skin/Breast: Reports erythema, Denies skin ulcer, Reports sores and Reports wounds Endocrine: Endocrine: Denies fatigue PMFSH Past Medical History Attestation statement: The following information was validated with the patient. Social History Social History Alcohol intake: current Alcohol intake frequency: a few times a month Alcohol type: wine Smoked in Last 30 Days: No Use of substances other than those prescribed or required for medical reasons: Yes Substance Use Type: Marijuana Substance Use Frequency: Occasionally Last Used Substance: Days (ago) Any prior treatment program specific to substance use: No Advance Directives: No Advance Directives Information Provided: No Do you have a plan to hurt others: No Plan Patient : No Physical Exam ED Vital Signs: Vital Signs - 24 hr 03/29/25 23:31 03/30/25 03:35 Temperature 97.5 F 98.1 F Pulse Rate 88 79 Respiratory Rate 16 14 Blood Pressure 129/59 L 118/82 Pulse Oximetry 100 97 Oxygen Delivery Method Room Air Room Air BMI result Body Mass Index 28.3 Const Other: Alert well-appearing Orientation/consciousness: patient oriented x3 Resp Effort & Inspection: normal respiratory effort Cardio Other: Normal peripheral perfusion Skin Other: Warm dry no rash Neuro General: patient oriented x3, gait normal, no focal motor deficits and CN's II-XI intact bilaterally Extrem Other: Region of induration with the overlying erythema, central scab formation that is not fluctuant, no purulence from the site, tender to palpation Psych Other: Cooperative Medications Administered Discontinued Medications Generic Name Dose Route Start Last Admin Trade Name Freq PRN Reason Stop Dose Admin Doxycycline Monohydrate 100 mg 03/30/25 02:54 03/30/25 03:31 Doxycycline Monohydrate 100 Mg Capsule PO 03/30/25 02:55 100 mg ONCE ONE Administration Medical Decision Making Medical Decision Making MDM Narrative: 54-year-old female presents with potential insect bike to posterior right thigh. Patient states she was at work sitting in a chair, when she felt something pinched the backside of her right leg. Since, she has developed a tender swelling. Denies fever denies drainage from the site. No chronic issues History: Per patient I have considered the following differential diagnoses: Cellulitis, purulent cellulitis, infected cyst, abscess Plan: I have viewed the site with bedside ultrasound, there was no fluid collection, I see cobblestoning consistent with cellulitis. We will send with home care instructions and a prescription for doxycycline. No indication for labs or imaging Differential Diagnosis Differential Diagnoses: The differential diagnosis associated with the presentation includes See medical decision-making Admission/Observation Consideration of admission/observation: Escalation of care including admission/observation considered Not applicable Discharge Plan Discharge Clinical Impression: Cellulitis Patient Disposition: Home, Self-Care Instructions: Cellulitis (ED), Warm Compress or Soak (ED) Additional Instructions: You are being treated for cellulitis of the right thigh, see home care instructions. Apply warm compresses several times a day to help with the healing process. Take the doxycycline as directed. Bedside ultrasound was performed, there was no fluid collection to suggest an abscess. Follow up with your primary care provider as needed. Prescriptions: New doxycycline hyclate 100 mg capsule 100 mg PO BID Qty: 13 0RF No Action methylprednisolone [Medrol (Jesse)] 4 mg tablets,dose pack 4 mg PO QAM Qty: 1 0RF methocarbamol 750 mg tablet 750 mg PO Q8H PRN (Reason: pain, moderate) Qty: 10 0RF meclizine 25 mg tablet 25 mg PO TID PRN (Reason: dizziness) Qty: 14 0RF acetaminophen 500 mg tablet 500 mg PO Q6H PRN (Reason: fever or pain) Qty: 20 0RF Interventions: ED Discharge Assessment Last Done: 03/30/25 03:35 Discharge Date/Time: 03/30/25 03:36 Print Language: [place]
[2025-03-30 03:35] VITALS: BP 118/82; PULSE 79; RESP 14; TEMP 36.7; O2SAT 97
== END 2025-03-30 03:36 | disposition home or self-care (01) ==
PROVIDERS: Emergency Provider Emergency Medicine
DX: S70.361A Insect bite (nonvenomous), right thigh, initial encounter (principal); W57.XXXA Bitten or stung by nonvenomous insect and other nonvenomous arthropods, initial encounter; Y93.9 Activity, unspecified; Y92.9 Unspecified place or not applicable; Y99.9 Unspecified external cause status; L03.90 Cellulitis, unspecified
CPT/HCPCS: 99283; 99284